=== PATIENT | male | born 1965 | race Caucasian/White ===

== ENCOUNTER 2023-12-20 10:31 | Outpatient (AMB) | payer OTHER, SELFPAY ==
--- NOTE | 2023-12-20 11:04 | MHC.OFFWIV ---
Intake Vital Signs 12/20/23 11:07 Height 6 ft 2 in Weight 505 lb BMI 64.8 BP 128/84 Blood Pressure Location Rt brachial Position Sitting Pulse 90 Pulse Source Pulse Oximeter Temp 98.3 F Temp Source Oral Pulse Oximetry (%) 96 Intake Visit Reasons: [employer] WORK[employer] blood in the urine Intake Note: PAtient here for urine in blood that started last night. Patient Tobacco Use Status: Never used Tobacco Allergies No Known Allergies Allergy (Verified 12/20/23 12:12) Do you need a note to return to daycare/school/sports/work: No HPI HPI Comments History of Present Illness Details This is a 58-year-old male with no stated past medical history and surgical history of hernia repair and appendectomy presenting for evaluation of bright red blood that he has had in his stool since yesterday. Patient states that this has never occurred before and he has no abdominal or rectal pain. Patient also denies having any fevers, chills, dysuria or hematuria. Patient is not aware of who his primary care physician is and is unaware of his most recent routine blood work. [facility] Social History Patient Tobacco Use Status: Never used Tobacco Review of Systems Const All systems reviewed & are unremarkable except as noted in HPI and below Eyes Reports no additional complaints ENT Reports no additional complaints Card Reports no additional complaints Resp Reports no additional complaints GI Denies abdominal pain, Reports hematochezia, Denies constipation and Denies GI cramping Reports no additional complaints, Denies hematuria and Denies dysuria Musc Reports no additional complaints Skin/Breast Reports system reviewed and no additional complaints, except as documented Neuro Reports no additional complaints Psych Reports no additional complaints Endo Reports no additional complaints Aller/Immun Reports no additional complaints Physical Exam Vital Signs: Last Vital Signs Pulse 90 12/20/23 11:07 BP 128/84 12/20/23 11:07 Pulse Ox 96 12/20/23 11:07 BMI result Body Mass Index 64.8 Const Other: Patient is morbidly obese and pale in appearance. General: no acute distress, alert, awake and Physically active; No acute distress Nutritional Appearance: obese morbidly obese Orientation/consciousness: oriented to person Limitations: other limitations (presents with cognitive delays; not able to ascertain chronicity) Cardio Rate: regular rate Rhythm: regular rhythm GI Other: obese abdomen, non.tender to examination, decreased bowel sounds Rectal Exam - Male: Yes deferred (Hemoccult testing is not available in the Walk.In clinic) Neuro General: oriented to person Assessment & Plan Assessment & Plan (1) Bloody stool: Comment: Patient's sister, Connie is consulted and will bring the patient to the Emergency Room for ongoing evaluation and care. Code(s): K92.1 - Melena Plan: Patient to be transported by his sister to [facility] ED. Coding Level of Care Code New Pt Level 3 (04883) Diagnoses Bloody stool K92.1 Time Spent (min) 20
[2023-12-20 11:07] VITALS: BP 128/84; PULSE 90; TEMP 36.8; O2SAT 96; BMI 64.8
== END 2023-12-20 11:39 | disposition home or self-care (01) ==
PROVIDERS: Visit Provider Physician Assistant
DX: K92.1 Melena (principal)

== ENCOUNTER → 2023-12-20 10:31 | Outpatient (BNVA) | payer SELFPAY | DX: R31.9 Hematuria, unspecified (principal) ==

== ENCOUNTER 2023-12-20 11:53 | Inpatient (IN) | payer OTHER, SELFPAY ==
--- NOTE | ~2023-12-20 | US_ITS ---
EXAMINATION: US ABDOMEN COMPLETE CLINICAL INFORMATION: Elevated bilirubin. COMPARISON: X-ray abdomen KUB 12/20/2023. TECHNIQUE: Real-time imaging of the abdominal viscera. Technically limited study secondary to body habitus and inability to roll in decubitus positioning. FINDINGS: PANCREAS: Normal. ABDOMINAL AORTA: Visualized proximal portions normal. INFERIOR VENA CAVA: Visualized proximal portions are normal. LIVER: Normal. The liver is normal in size. The liver contour is normal. Parenchymal echogenicity is normal. No focal hepatic lesion. There is no intrahepatic biliary duct dilatation seen. GALLBLADDER: Not seen likely surgically absent. COMMON BILE DUCT: Normal in caliber measuring 0.4 cm in diameter. RIGHT KIDNEY: Normal. No hydronephrosis. No renal calculi or focal parenchymal lesions. The kidney measures 12.2 cm in maximum dimension. LEFT KIDNEY: Lower pole cyst measuring 8.5 cm. No hydronephrosis or renal calculi. The kidney measures 12.4 cm in maximum dimension. SPLEEN: Normal. The spleen measures 15.0 cm in maximum dimension. FREE FLUID: None. US/US abdomen complete IMPRESSION: 1. Left renal cyst. 2. Gallbladder not visualized likely surgically absent. Electronically signed by: Carroll King MD 12/21/2023 05:48 PM EDT
--- NOTE | ~2023-12-20 | XR_ITS ---
EXAMINATION: XR ABDOMEN KUB CLINICAL INDICATION: Constipation COMPARISON: None available. TECHNIQUE: AP view of the abdomen. FINDINGS: The bowel gas pattern is normal with no evidence of ileus or obstruction. No unusual soft tissue calcifications are noted. The bones are unremarkable. Mild stool burden. XR/XR KUB IMPRESSION: Mild stool burden. Electronically signed by: Peg Bhakta MD 12/20/2023 07:27 PM EDT
--- NOTE | 2023-12-20 12:05 | ED_ITS ---
HPI - Male Genitourinary General Chief complaint: GI Bleed Stated complaint: blood in urine Time Seen by Provider: 12/20/23 14:57 Source: patient, family (sister), RN notes reviewed and old records reviewed Mode of arrival: ambulatory Limitations: no limitations History of Present Illness ED Provider: Ashley PETERSEN Narrative: 58-year-old male who denies past medical history presents for evaluation of bright red rectal bleeding. Patient admits that he has not seen a doctor in many years. He states that he has had intermittent rectal bleeding that is bright red for the last month. The symptoms seemed to worsen yesterday therefore the patient presents today. He reports that he does not feel constipated and has about 1 bowel movement per day He denies any pain including abdominal pain rectal pain. He is not on any blood thinners. He thinks he may have had blood in his urine as well He takes no medications whatsoever He denies any shortness of breath Patient reports that he occasionally does feel lightheaded Related Data Home Medications ?Medication ?Instructions ?Recorded ?Confirmed No Known Home Meds 12/20/23 12/20/23 Allergies Allergy/AdvReac Type Severity Reaction Status Date / Time No Known Allergies Allergy Verified 12/20/23 12:12 Review of Systems 2 Constitutional: Constitutional: Denies body ache(s), Denies chills, Denies fever(s) and Denies headache(s) Eyes: Eyes: Denies blurry vision ENT: Denies headache(s) Cardiovascular: Cardiovascular: Denies chest pain and Denies dyspnea Respiratory: Respiratory: Denies cough and Denies dyspnea Gastrointestinal: Gastrointestinal: Denies abdominal pain and Reports hematochezia Musculoskeletal: Musculoskeletal: Denies back pain Integumentary/Breasts: Skin/Breast: Denies rash Neurologic: Denies headache(s) [facility] Past Medical History Medical History (Updated 12/20/23 @ 17:19 by Willard Ramirez) Morbid obesity Surgical History (Updated 12/20/23 @ 15:58 by Grace Patel RN) S/P hernia surgery S/P appendectomy Social History Social History Patient Tobacco Use Status: Never used Tobacco Smoked in Last 30 Days: No Use of substances other than those prescribed or required for medical reasons: No Advance Directives: No Advance Directives Information Provided: No Do you have a plan to hurt others: No Plan Physical Exam 2 Vital Signs: Vital Signs: Last Vital Signs Temp 98.1 F 12/20/23 15:28 Pulse 81 12/20/23 15:28 Resp 16 12/20/23 15:28 BP 143/75 H 12/20/23 15:28 Pulse Ox 95 12/20/23 15:28 O2 Del Method Room Air 12/20/23 15:28 BMI result Body Mass Index 65.1 Const: General: comfortable, no acute distress, alert and awake Nutritional Appearance: well nourished Orientation/consciousness: patient oriented x3 HEENT: Head: Yes normocephalic and Yes atraumatic Eyes: Eyelids: Yes eyelids normal Conjunctivae: conjunctivae normal S clerae: sclerae normal Corneas: corneas normal Pupils: Equal, round and reactive pupils present EOM: EOMs intact bilaterally Neck: Neck: Yes full ROM Resp: Effort & Inspection: normal respiratory effort, able to speak in complete sentences and not labored Cardio: Rate: regular rate Rhythm: regular rhythm GI: Inspection: No distended Palpation (GI): Soft to palpation, not firm, nontender, no guarding and not rigid Rectal Exam - Male: Yes visual inspection normal, Yes normal sphincter tone, Yes heme positive stool, No External hemorrhoid(s) present, No Internal hemorrhoid(s) present and Yes other (Stool is light brown in color, but guaiac-positive) Skin: Other: The patient has significant lichenification changes to the bilateral lower extremities below the knee General skin exam: elasticity normal Neuro: General: patient oriented x3 Cranial nerves: Yes Equal, round and reactive pupils present and Yes Bilaterally intact EOM present Cognition (Neuro): normal cognition Course Course Course Narrative: This is a Rapid Medical Exam performed in triage by Mye Stearns PA-C. Full HPI, ROS and PE to be performed by primary ED provider. 58 yo M w/no sig PMHx presenting to the ED c/o brbpr x 1 mos worsening over the past week. Also ?hematuria. Denies AC use. Also reports feeling lightheaded at present. Denies abdominal pain, rectal pain, dysuria, fever, chills PE: Pale, ambulating w/ slow gait Plan: EKG, labs, UA, occult stool, type and screen Reevaluation(s) Reevaluation #1: Discussed with GI, Dr. Story who recommends admission as repeat hemoglobin is 1.1 points lower less than 4 hours and he has not yet received any fluids to dilute his blood. However, we will treat his elevated BUN and creatinine with IV fluids, 1 L of normal saline and will discuss with the hospitalist for admission. Time: 17:16 Medical Decision Making Medical Decision Making [facility] Narrative: 58-year-old male who denies any known medical history but appears to have noncompliance with follow-up. He is morbidly obese with significant lichenification to lower extremities. His vital signs are stable. He is guaiac positive from below. He is passing gas and having bowel movements as recently as last night. The patient has no abdominal pain or tenderness, we will discuss with the GI Differential Diagnosis Differential Diagnoses: The differential diagnosis associated with the presentation includes Internal hemorrhoids Constipation Anemia Diverticular bleed Admission/Observation Consideration of admission/observation: Escalation of care including admission/observation considered Consult Healthcare Provider Management of the patient was discussed with: [employer] Developer (GENO, Dr Story) Lab Data [facility] Lab Attestation statement: I reviewed the patient's lab results. Patient has no leukocytosis, initial hemoglobin and hematocrit 11.7 and 36.3 respectively, this is a normocytic anemia. Electrolytes are within normal limits, the patient has an elevated BUN to 27 with an elevated creatinine of 1.57, unclear baseline, glucose is 125 12/20/23 16:05 12/20/23 12:24 Labs: Lab Results 12/20/23 12/20/23 12/20/23 Range/Units 12:24 15:27 16:05 WBC 5.6 (4.8-10.8) X10*3/uL RBC 4.52 L (4.60-5.80) X10*6/uL Hgb 11.7 L 10.6 L (14.0-18.0) g/dl Hct 36.3 L 32.5 L (42.0-52.0) % MCV 80.3 (80.0-98.0) fL MCH 25.9 L (27.0-33.0) pg MCHC 32.2 (31.0-36.0) g/dl RDW 15.7 (11.0-16.0) % Plt Count 178 (160-400) X10*3/uL MPV 9.4 (9.4-12.4) fL Immature Gran % (Auto) 0.5 H (0.0-0.4) % Neut % (Auto) 78.7 H (45-73) % Lymph % (Auto) 12.7 L (20-40) % [place] % (Auto) 5.4 (2-11) % Eos % (Auto) 2.2 (0-4) % Baso % (Auto) 0.5 (0-2) % Lymph # (Auto) 0.7 L (1.2-4.9) X10*3/uL [place] # (Auto) 0.3 (0.1-1.2) X10*3/uL Eos # (Auto) 0.1 (0.0-0.4) X10*3/uL Baso # (Auto) 0.0 (0.0-0.2) X10*3/uL Abs Immat Gran (auto) 0.03 (0.00-0.03) X10*3/uL Absolute Neuts (auto) 4.4 (2.0-8.3) x10*3/uL Absolute Nucleated RBC 0.000 (0.0-0.012) X10*3/uL Nucleated RBC % (auto) 0.0 (0.0-0.2) /100WBC PT 13.0 H (10.9-12.4) SEC INR 1.1 (0.9-1.1) Sodium 143 (135-145) mmol/L Potassium 4.3 (3.3-5.1) mmol/L Chloride 106 (96-108) mmol/L Carbon Dioxide 28 (22-29) mmol/L Anion Gap 13 (12-20) BUN 27 H (9-16) mg/dL Creatinine 1.57 H (0.5-1.4) mg/dL Estim Creat Clear Calc 102.5 Estimated GFR 46 Random Glucose 125 H (60-115) mg/dL Calcium 9.5 (8.4-10.2) mg/dL Magnesium 1.7 (1.6-2.6) mg/dL Total Bilirubin 2.1 H (0.0-1.0) mg/dL Direct Bilirubin 0.7 H (0.0-0.5) mg/dL AST 14 (5-37) U/L ALT 13 (0-40) U/L Alkaline Phosphatase 97 (39-117) U/L Troponin I High Sens 2.9 (<3.5-35.0) ng/L Total Protein 7.7 (6.5-8.0) g/dL Albumin 3.8 (3.5-5.0) g/dL Lipase 16 (8-78) U/L Stool Occult Blood POSITIVE (NEGATIVE) Influenza Type A (PCR) NEGATIVE (Negative) Influenza Type B (PCR) NEGATIVE (Negative) RSV RNA Qual (PCR) NEGATIVE (Negative) SARS-CoV-2 RNA (RT-PCR) NEGATIVE (Negative) Blood Type A Positive Antibody Screen NEGATIVE Discharge Plan Discharge Clinical Impression: Bloody stool Patient Disposition: Admitted As Inpatient Prescriptions: No Action No Known Home Meds Print Language: Chinese
[2023-12-20 12:07] VITALS: BP 155/99; PULSE 93; RESP 20; TEMP 35.8; O2SAT 95; BMI 65.1
--- NOTE | 2023-12-20 12:09 | ECG_ITS ---
Test Reason : rectal bleeding Blood Pressure : / mmHG Vent. Rate : 074 BPM Atrial Rate : 000 BPM P-R Int : 000 ms QRS Dur : 106 ms QT Int : 416 ms P-R-T Axes : 000 031 030 degrees QTc Int : 461 ms Atrial fibrillation with a competing junctional pacemaker Abnormal ECG No previous ECGs available Referred By: Mey Stearns Electronically Signed By:THO LOREDO
[2023-12-20 12:31] LABS: MANUAL DIFF FLAG NO
[2023-12-20 12:36] LABS: Basophils Percent Auto 0.5 % (0-2); Eosinophils Absolute Auto 0.1 X10*3/uL (0.0-0.4); Eosinophils Percent Auto 2.2 % (0-4); Hematocrit 36.3 % (42.0-52.0); Hemoglobin 11.7 g/dl (14.0-18.0); Imm Gran Abs Auto 0.03 X10*3/uL (0.00-0.03); Imm Gran Pct Auto 0.5 % (0.0-0.4); Lymphocytes Absolute Auto 0.7 X10*3/uL (1.2-4.9); Lymphocytes Percent Auto 12.7 % (20-40); Mean Corpuscular HGB Conc 32.2 g/dl (31.0-36.0); Mean Corpuscular Hemoglobin 25.9 pg (27.0-33.0); Mean Corpuscular Volume 80.3 fL (80.0-98.0); Mean Platelet Volume 9.4 fL (9.4-12.4); Monocytes Absolute Auto 0.3 X10*3/uL (0.1-1.2); Monocytes Percent Auto 5.4 % (2-11); Neutrophils Absolute Auto 4.4 x10*3/uL (2.0-8.3); Neutrophils Percent Auto 78.7 % (45-73); Platelet Count 178 X10*3/uL (160-400); Red Blood Count 4.52 X10*6/uL (4.60-5.80); Red Cell Distribution Width 15.7 % (11.0-16.0); White Blood Count 5.6 X10*3/uL (4.8-10.8)
[2023-12-20 12:48] LABS: Alanine Aminotransferase 13 U/L (0-40); Albumin Level 3.8 g/dL (3.5-5.0); Alkaline Phosphatase 97 U/L (39-117); Anion Gap 13 (12-20); Aspartate Amino Transferase 14 U/L (5-37); Bilirubin Direct 0.7 mg/dL (0.0-0.5); Bilirubin Total 2.1 mg/dL (0.0-1.0); Blood Urea Nitrogen 27 mg/dL (9-16); Calcium 9.5 mg/dL (8.4-10.2); Carbon Dioxide 28 mmol/L (22-29); Chloride 106 mmol/L (96-108); Creatinine Clr Calc Pharmacy 102.5; Estimated Glomerular Filt Rate 46; Glucose Random 125 mg/dL (60-115); INTERNATIONAL NORM RATIO 1.1 (0.9-1.1); Lipase 16 U/L (8-78); Magnesium 1.7 mg/dL (1.6-2.6); Potassium 4.3 mmol/L (3.3-5.1); Sodium 143 mmol/L (135-145); Total Protein 7.7 g/dL (6.5-8.0)
[2023-12-20 12:56] LABS: Troponin-I High Sensitivity 2.9 ng/L (<3.5-35.0)
[2023-12-20 13:22] LABS: Influenza A PCR NEGATIVE (Negative); Influenza B PCR NEGATIVE (Negative); Resp Syncy Virus RNA Qual PCR NEGATIVE (Negative); SARS COV2 PCR INHOUSE NEGATIVE (Negative)
[2023-12-20 15:28] VITALS: BP 143/75; PULSE 81; RESP 16; TEMP 36.7; O2SAT 95
[2023-12-20 15:36] LABS: OBS Int Ctl Valid YES; OBS1 POSITIVE (NEGATIVE)
--- NOTE | 2023-12-20 16:06 | PC.NURSE ---
pt a&ox3, vss, pt denies pain/discomfort, iv inserted, labs drawn, call walton within reach, will continue to monitor
[2023-12-20 16:11] LABS: Hematocrit 32.5 % (42.0-52.0); Hemoglobin 10.6 g/dl (14.0-18.0)
--- NOTE | 2023-12-20 17:23 | PHA.MEDREC ---
Pharmacy Consult ? Medication Reconciliation Pharmacy has completed the medication reconciliation.
--- NOTE | 2023-12-20 17:32 | P.HPHOSP_ITS ---
History of Present Illness Date of Service: 12/20/23 Attending physician on admission: [facility] Chief Complaint: Bloody stool Pt is a 58-year-old male with PMH significant for appendectomy and hernia repair, not on home medication and does not regularly follow with PCP?who presents to the ED from urgent care for evaluation of bright red blood per rectum. Patient reports symptoms started approximately 3 months ago when he began noticing intermittent bright red blood after bowel movements. Frequency and duration of bleeding has been increasing, until yesterday he was ?dumping blood? with clots in the toilet. After prompting from his family patient initially presented to a walk-in clinic where he was then redirected to the ED for further evaluation. Patient otherwise denies any acute medical concerns. No lightheadedness or dizziness. Denies diarrhea. No abdominal pain. Denies fever, chills, nausea, vomiting. No increased fatigue. Denies chest pain/pressure, palpitations. No shortness a breath or difficulty breathing. Of note, patient is a rather poor historian without a clear sense of his PMH. Has not followed with a PCP for 30+ years. Reports previously on Coumadin 30 years ago but unsure of indication or why he stopped taking the medication. In the ED pt was hypothermic as low as 96.4, elevated heart rate of 93, and hypertensive at 155/99. Labs were significant for stool positive for occult blood, initial H&H of 11.7/36.3 with repeat 4 hours later at 10.6/32.5, BUN 27, creatinine 1.57, and bilirubin 2.1. No significant electrolyte abnormalities. No leukocytosis. Initial troponin 2.9. Tested negative for flu, RSV, and COVID. KUB official read pending. EKG demonstrated AFib without evidence of significant ST elevations or depressions. Pt was treated with 1L IVF. Pt will be admitted to the hospital for treatment and further evaluation of hematochezia concerning for acute lower GI bleed. Review of Systems 2 Review of Systems: Worsening bright red blood per rectum Patient otherwise denies any acute medical complaints No lightheadedness or dizziness Denies abdominal pain No nausea, vomiting, diarrhea No chest pain/pressure or palpitations PMFSH Medical History (Updated 12/21/23 @ 11:50 by Jerry Guzman MD) Morbid obesity Family History (Updated 12/21/23 @ 11:48 by Jerry Guzman MD) Mother No problems noted. Father No problems noted. Surgical History S/P hernia surgery S/P appendectomy Social History Household Members: Other Household Members Other:: Mother Housing: House Do you presently have visiting nurse or other home services: No Patient Tobacco Use Status: Never used Tobacco Smoked in Last 30 Days: No Use of substances other than those prescribed or required for medical reasons: No Currently Displaying Signs/Symptoms of Drug Intoxication Withdrawal: No Have you been hit, kicked, punched, or otherwise hurt by someone within the past year? If so, by whom?: No Do you feel safe in your current relationship?: No Current Relationship Is there a partner from a previous relationship who is making you feel unsafe now?: No Are you made to feel afraid or neglected: No Advance Directives: No Advance Directives Information Provided: No Do you have a plan to hurt others: No Plan Recently lost weight without trying: Unsure Eating poorly because of decreased appetite: No service: No Meds Allergies Allergy/AdvReac Type Severity Reaction Status Date / Time No Known Allergies Allergy Verified 12/20/23 12:12 Active Medications: Current Medications Sodium Chloride (Ns) 1,000 mls @ 999 mls/hr IV .Q1H1M MANUEL Stop: 12/20/23 18:15 Home Medications ?Medication ?Instructions ?Recorded ?Confirmed ?Last Taken ?Type No Known Home Meds 12/20/23 12/20/23 Unknown History Physical Exam 2 Vital Signs and Narrative: Vital Signs: Last Vital Signs Temp 98.1 F 12/20/23 15:28 Pulse 81 12/20/23 15:28 Resp 16 12/20/23 15:28 BP 143/75 H 12/20/23 15:28 Pulse Ox 95 12/20/23 15:28 O2 Del Method Room Air 12/20/23 15:28 BMI result Body Mass Index 65.1 General: AOx3, no acute distress Resp: CTA bilaterally CVS: Irregularly irregular rhythm GI: +BS, NT, no distention, obese Skin: Warm, dry Neuro: Cranial nerves II-XII grossly intact bilaterally. Motor grossly intact bilaterally Extremities: Evidence of significant venous stasis dermatitis with lichenification and scaling. No indication of cellulitis. As pictured below Psych: Appropriate affect Results Labs 12/22/23 05:34 12/22/23 05:34 Labs: Laboratory Results - last 24 hr 12/20/23 12/20/23 12:24 15:27 MCV 80.3 MCH 25.9 L MCHC 32.2 RDW 15.7 Plt Count 178 MPV 9.4 Immature Gran % (Auto) 0.5 H Neut % (Auto) 78.7 H Lymph % (Auto) 12.7 L [place] % (Auto) 5.4 Eos % (Auto) 2.2 Baso % (Auto) 0.5 Lymph # (Auto) 0.7 L [place] # (Auto) 0.3 Eos # (Auto) 0.1 Baso # (Auto) 0.0 Abs Immat Gran (auto) 0.03 Absolute Neuts (auto) 4.4 Absolute Nucleated RBC 0.000 Nucleated RBC % (auto) 0.0 PT 13.0 H INR 1.1 Anion Gap 13 Estim Creat Clear Calc 102.5 Estimated GFR 46 Random Glucose 125 H Calcium 9.5 Magnesium 1.7 Total Bilirubin 2.1 H Direct Bilirubin 0.7 H AST 14 ALT 13 Alkaline Phosphatase 97 Troponin I High Sens 2.9 Total Protein 7.7 Albumin 3.8 Lipase 16 Stool Occult Blood POSITIVE Influenza Type A (PCR) NEGATIVE Influenza Type B (PCR) NEGATIVE RSV RNA Qual (PCR) NEGATIVE SARS-CoV-2 RNA (RT-PCR) NEGATIVE Blood Type A Positive Antibody Screen NEGATIVE Assessment and Plan (1) Lower GI bleed: Status: Acute Plan Pt is a 58-year-old male with PMH significant for appendectomy and hernia repair, not on home medication and does not regularly follow with PCP?who presents to the ED from urgent care for evaluation of bright red blood per rectum. Pt will be admitted to the hospital for treatment and further evaluation of hematochezia concerning for acute lower GI bleed. Hematochezia Patient reports intermittent BRBPR x3 months, worsening since yesterday Stool positive for occult blood, H&H 11.7/36.3 with repeat dropping to 10.6/32.5 Concernig for acute LGIB Patient otherwise asymptomatic without N/V/D or abdominal pain, no lightheadedness/dizziness/fatigue GI consult NPO past midnight for possible colonoscopy Follow CBC Atrial fibrillation EKG showed a fibrillation with competing junctional pacemaker Patient asymptomatic: Denies chest pain/pressure or palpitations Pt not on home meds, denies previous cardiac hx Cardiology consult Continuous cardiac monitoring Elevated creatinine Creatinine 1.57 at time of presentation Baseline unknown: ?CKD vs QUENTIN Patient received 1L IVF in the ED Follow creatinine Chronic venous stasis dermatitis Patient with significant dermal changes and lichenification Ammonium lactate lotion b.i.d. Obesity class 3 Encourage weight loss Full Code Attending:?Dr. Liu DVT Prophylaxis: Pneumoatic compression due to concern for LGIB Pt will require a hospitalization of at least two nights for treatment of?hematochezia concerning for lower GI bleed that will require specialist consultation with GI, likely colonoscopy in the morning, and close H&H monitoring. Quality Stroke Does the patient have a stroke diagnosis?: No VTE Prior VTE?: No VTE Risk Level:: Medical - moderate - high VTE Device Contraindication: N/A - Device Ordered VTE Drug Contraindication: Treatment Not Indicated
[2023-12-20] MEDS: 0.9 % Sodium Chloride 1,000 ML 999 ML IV (17:41)
[2023-12-20 18:04] LABS: Appearance Urine Clear; Color Urine Yellow; Glucose Urine UA Negative (Negative); Leukocyte Esterase Urine Moderate (2+) (Negative); Nitrite Urine Negative (Negative); PH 5.5 (5.0-9.0); UMIC TRIGGER UACC YES; Urine Blood Moderate (2+) (Negative); Urine Ketones Negative (Negative); Urine Protein Trace mg/dL (Neg-Trace)
[2023-12-20 18:07] LABS: Bacteria Urine Trace (None Seen); Hyaline Casts Urine 0-2 /LPF (0-2); Squamous Epithelial Cell Urine 0-2 /HPF (0-2); UACC Culture Trigger YES; WBC Urine 21-50 /HPF (0-5)
--- NOTE | 2023-12-20 20:22 | PC.NURSE ---
Pt and family asking about food. Pt requesting to eat Per hospitalist clear liquid diet until 0000 then NPO Pt given juice and water Plan of care ongoing.
--- NOTE | 2023-12-20 21:18 | PC.NURSE ---
NS completed on prior shift. This RN entered room and NS finished. Plan of care ongoing.
[2023-12-21] VITALS (7 sets, daily range): BP systolic 128–160; BP diastolic 74–86; PULSE 61–80; RESP 12–20; TEMP 36.1–36.6; O2SAT 93–99
[2023-12-21 07:05] LABS: Hematocrit 32.2 % (42.0-52.0); Hemoglobin 10.2 g/dl (14.0-18.0); Mean Corpuscular HGB Conc 31.7 g/dl (31.0-36.0); Mean Corpuscular Hemoglobin 25.4 pg (27.0-33.0); Mean Corpuscular Volume 80.3 fL (80.0-98.0); Mean Platelet Volume 9.7 fL (9.4-12.4); Platelet Count 145 X10*3/uL (160-400); Red Blood Count 4.01 X10*6/uL (4.60-5.80); Red Cell Distribution Width 15.7 % (11.0-16.0); White Blood Count 4.5 X10*3/uL (4.8-10.8)
[2023-12-21 07:15] LABS: Anion Gap 11 (12-20); Blood Urea Nitrogen 20 mg/dL (9-16); Calcium 8.9 mg/dL (8.4-10.2); Carbon Dioxide 28 mmol/L (22-29); Chloride 108 mmol/L (96-108); Creatinine Clr Calc Pharmacy 137.6; Estimated Glomerular Filt Rate > 60; Glucose Random 97 mg/dL (60-115); Iron 37 mcg/dL (45-160); Percent Iron Saturation 16 % (15-50); Potassium 3.5 mmol/L (3.3-5.1); Sodium 143 mmol/L (135-145); Total Iron Binding Capacity 225 mcg/dL (228-428); Unsaturated Iron Binding 188 ug/dL
[2023-12-21 07:30] LABS: Ferritin 83 ng/mL (20-250)
[2023-12-21 07:39] LABS: Folate 7.7 ng/mL (> or = 4.0); Vitamin B12 1169 pg/mL (200-900)
[2023-12-21 08:05] LABS: Lactate Dehydrogenase 158 U/L (118-273)
--- NOTE | 2023-12-21 09:25 | P.PNIM_ITS ---
Subjective Subjective Date of Service: 12/21/23 Interval History: no further bm Physical Exam 2 Vital Signs: Vital Signs: Last Vital Signs Temp 97.6 F 12/21/23 08:00 Pulse 63 12/21/23 08:00 Resp 20 12/21/23 08:00 BP 158/82 H 12/21/23 08:00 Pulse Ox 96 12/21/23 08:00 O2 Del Method Room Air 12/21/23 08:00 BMI result Body Mass Index 65.1 General: AO X 3, no acute distress, morbidly obese Resp: CTA bilateral, no accessory muscles used CVS: S1,S2,RRR GI: soft, non tender, non distended Neuro: motor grossly intact, alert Psych: appropriate affect, appropriate insight bilateral lymphedema with chronic skin changes Objective Data Active Medications Acetaminophen (Acetaminophen 325 Mg Tablet) 650 mg PO Q6H PRN PRN Reason: Pain, Mild (Pain Scale 1-3), fever or headache Benzonatate (Benzonatate 100 Mg Capsule) 100 mg PO TID PRN PRN Reason: Cough Calcium Carbonate (Calcium Carbonate 750 Mg Tab.Chew) 750 mg PO Q4H PRN PRN Reason: Heartburn Lactic Acid (Ammonium Lactate 12 % Lotion 226 Gm Bottle) 1 appl TOPICAL BID [facility]; Protocol Last Admin: 12/20/23 21:18 Dose: Not Given Documented By: WYATT Non-Admin Reason: Med Not Available Magnesium Hydroxide (Milk Of Magnesia 30 Ml Oral.Susp) 30 ml PO DAILY PRN PRN Reason: Constipation Melatonin (Melatonin 3 Mg Tablet) 6 mg PO BEDTIME PRN PRN Reason: Insomnia Ondansetron HCl (Ondansetron Hcl 4 Mg/2 Ml Vial) 4 mg IVPUSH Q8H PRN PRN Reason: Nausea and Vomiting Sodium Chloride (0.9 % Sodium Chloride Flush 3 Ml Syringe) 3 ml IVFLUSH QSHIFT [facility] Last Admin: 12/21/23 06:03 Dose: Not Given Documented By: BRISEYDA Non-Admin Reason: Patient Refused Labs 12/21/23 06:12 12/21/23 06:12 Labs: Laboratory Results - last 24 hr 12/20/23 12/20/23 12/20/23 12:24 15:27 17:50 MCV 80.3 MCH 25.9 L MCHC 32.2 RDW 15.7 Plt Count 178 MPV 9.4 Immature Gran % (Auto) 0.5 H Neut % (Auto) 78.7 H Lymph % (Auto) 12.7 L [place] % (Auto) 5.4 Eos % (Auto) 2.2 Baso % (Auto) 0.5 Lymph # (Auto) 0.7 L [place] # (Auto) 0.3 Eos # (Auto) 0.1 Baso # (Auto) 0.0 Abs Immat Gran (auto) 0.03 Absolute Neuts (auto) 4.4 Absolute Nucleated RBC 0.000 Nucleated RBC % (auto) 0.0 PT 13.0 H INR 1.1 Anion Gap 13 Estim Creat Clear Calc 102.5 Estimated GFR 46 Random Glucose 125 H Calcium 9.5 Magnesium 1.7 Iron TIBC % Saturation Unsat Iron Binding Ferritin Total Bilirubin 2.1 H Direct Bilirubin 0.7 H AST 14 ALT 13 Alkaline Phosphatase 97 Lactate Dehydrogenase Troponin I High Sens 2.9 Total Protein 7.7 Albumin 3.8 Lipase 16 Vitamin B12 Folate Urine Color Yellow Urine Appearance Clear Urine pH 5.5 Ur Specific [place] 1.020 Urine Protein Trace Urine Glucose (UA) Negative Urine Ketones Negative Urine Blood Moderate (2+) H Urine Nitrite Negative Ur Leukocyte Esterase Moderate (2+) H Urine RBC 11-20 H Urine WBC 21-50 H Ur Squamous Epith Cells 0-2 Urine Bacteria Trace Hyaline Casts 0-2 Stool Occult Blood POSITIVE Influenza Type A (PCR) NEGATIVE Influenza Type B (PCR) NEGATIVE RSV RNA Qual (PCR) NEGATIVE SARS-CoV-2 RNA (RT-PCR) NEGATIVE Blood Type A Positive Antibody Screen NEGATIVE 12/21/23 06:12 MCV 80.3 MCH 25.4 L MCHC 31.7 RDW 15.7 Plt Count 145 L MPV 9.7 Immature Gran % (Auto) Neut % (Auto) Lymph % (Auto) [place] % (Auto) Eos % (Auto) Baso % (Auto) Lymph # (Auto) [place] # (Auto) Eos # (Auto) Baso # (Auto) Abs Immat Gran (auto) Absolute Neuts (auto) Absolute Nucleated RBC 0.000 Nucleated RBC % (auto) 0.0 PT INR Anion Gap 11 L Estim Creat Clear Calc 137.6 Estimated GFR > 60 Random Glucose 97 Calcium 8.9 D Magnesium Iron 37 L TIBC 225 L % Saturation 16 Unsat Iron Binding 188 Ferritin 83 Total Bilirubin Direct Bilirubin AST ALT Alkaline Phosphatase Lactate Dehydrogenase 158 Troponin I High Sens Total Protein Albumin Lipase Vitamin B12 1169 H Folate 7.7 Urine Color Urine Appearance Urine pH Ur Specific [place] Urine Protein Urine Glucose (UA) Urine Ketones Urine Blood Urine Nitrite Ur Leukocyte Esterase Urine RBC Urine WBC Ur Squamous Epith Cells Urine Bacteria Hyaline Casts Stool Occult Blood Influenza Type A (PCR) Influenza Type B (PCR) RSV RNA Qual (PCR) SARS-CoV-2 RNA (RT-PCR) Blood Type Antibody Screen Assessment and Plan (1) Lower GI bleed: Status: Acute Plan 58M PMH morbid obesity does not follow with pcp, presented with brbpr Acute blood loss anemia Due to lower GI bleed, likely hemorrhoidal versus diverticular Monitor CBC, GI eval afib new diagnosis, rate controlled - 60s, 70s hold off on AC due to gi bleed cardio eval katelyn resolved with 1L IVF super morbid obesity complicated by chronic venous stasis weight loss recommended ammonium lactate, compression elevated bili suspect NAFLD check a1c, lipids, abd us elevated bp ?htn monitor for now dvt prophylaxis - mechancial due to gi bleed full code reason for continued hospitalization:working up gi bleed Quality Stroke Does the patient have a stroke diagnosis?: No VTE Prior VTE?: No VTE Risk Level:: Medical - moderate - high VTE Device Contraindication: N/A - Device Ordered VTE Drug Contraindication: Treatment Not Indicated
[2023-12-21] MEDS: 0.9 % Sodium Chloride Flush 3 ML SYRINGE IVFLUSH ×2 (09:51→23:47)
[2023-12-21] MEDS: Ammonium Lactate 12 % Lotion 226 GM BOTTLE 1 APPL TOPICAL ×2 (09:52→22:30)
--- NOTE | 2023-12-21 10:05 | PM.GICN ---
History of Present Illness Data of Consult Service Date: 12/21/23 Requesting physician: Mitul Liang Primary Care Provider: None Physician HPI Reason for consult: Lower GI/rectal bleeding 58 YM with hx of morbid obesity, appendectomy and hernia repair, not on home medication and does not regularly follow with PCP?seen at [facility] [place] ED on 12/20/23 for evaluation of bright red blood per rectum. Patient reports he noted intermittent rectal bleeding (Consisting of BRB after a BM) since the past 3 months. Frequency and duration of bleeding has been increasing, until yesterday he was ?dumping blood? with clots in the toilet. After prompting from his family patient initially presented to a walk-in clinic where he was then redirected to the ED for further evaluation. Patient denied heartburn, dysphagia, lightheadedness or dizziness, abd pain or diarrhea, fever, chills, nausea, vomiting or worsening fatigue. He denied chest pain/pressure, palpitations, shortness a breath or difficulty breathing. Patient has not followed with a PCP for 30+ years. Reports previously on Coumadin 30 years ago but unsure of indication or why he stopped taking the medication. Patient denies smoking or ETOH abuse. 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 Labs were significant for stool positive for occult blood, initial H&H of 11.7/36.3 with repeat 4 hours later at 10.6/32.5, BUN 27, creatinine 1.57, and bilirubin 2.1. No significant electrolyte abnormalities. No leukocytosis. Initial troponin 2.9. Tested negative for flu, RSV, and COVID. [facility] official read pending. EKG demonstrated AFib without evidence of significant ST elevations or depressions. Pt was treated with 1L IVF. and was admitted to the hospital for treatment and further evaluation of hematochezia concerning for acute lower GI bleed. Review of Systems Review of Systems: Yes all other systems are reviewed and are negative [facility] Past Medical History Medical History (Updated 12/28/23 @ 00:03 by Kim Foley) Atrial fibrillation by electrocardiogram Morbid obesity Family History Family History (Updated 12/21/23 @ 11:48 by Jerry Guzman MD) Mother No problems noted. Father No problems noted. Surgical History Surgical History (Updated 12/24/23 @ 06:54 by Zayra Ruiz RN) Hx of colonoscopy S/P hernia surgery S/P appendectomy Social History Social History Household Members: Other Household Members Other:: sister Housing: House Are you a primary respiratory care faculty to a significant other at home: No Do you presently have visiting nurse or other home services: No Patient Tobacco Use Status: Never used Tobacco service: No Meds Allergies Allergy/AdvReac Type Severity Reaction Status Date / Time No Known Allergies Allergy Verified 12/24/23 06:54 Active Medications: Current Medications Acetaminophen (Acetaminophen 325 Mg Tablet) 650 mg PO Q6H PRN PRN Reason: Pain, Mild (Pain Scale 1-3), fever or headache Benzonatate (Benzonatate 100 Mg Capsule) 100 mg PO TID PRN PRN Reason: Cough Calcium Carbonate (Calcium Carbonate 750 Mg Tab.Chew) 750 mg PO Q4H PRN PRN Reason: Heartburn Lactic Acid (Ammonium Lactate 12 % Lotion 226 Gm Bottle) 1 appl TOPICAL BID [facility]; Protocol Last Admin: 12/21/23 09:52 Dose: 1 appl Magnesium Hydroxide (Milk Of Magnesia 30 Ml Oral.Susp) 30 ml PO DAILY PRN PRN Reason: Constipation Melatonin (Melatonin 3 Mg Tablet) 6 mg PO BEDTIME PRN PRN Reason: Insomnia Ondansetron HCl (Ondansetron Hcl 4 Mg/2 Ml Vial) 4 mg IVPUSH Q8H PRN PRN Reason: Nausea and Vomiting Sodium Chloride (0.9 % Sodium Chloride Flush 3 Ml Syringe) 3 ml IVFLUSH QSHIFT [facility] Last Admin: 12/21/23 09:51 Dose: 3 ml Physical Exam Vital Signs: Vital Signs: Last Vital Signs Temp 97.6 F 12/21/23 08:00 Pulse 63 12/21/23 08:00 Resp 20 12/21/23 08:00 BP 158/82 H 12/21/23 08:00 Pulse Ox 96 12/21/23 08:00 O2 Del Method Room Air 12/21/23 08:00 BMI result Body Mass Index 65.1 Const: General: healthy appearing and no acute distress Nutritional Appearance: obese (Morbidly obese) Orientation/consciousness: patient oriented x3 HEENT: Head: Yes normal to inspection Ears: hearing grossly normal bilaterally Eyes: Sclerae: sclerae normal Pupils: Equal, round and reactive pupils present Neck: Neck: Yes normal visual inspection Chest: Chest palpation & inspection: normal inspection of the chest Resp: Effort & Inspection: normal respiratory effort Auscultation: clear to auscultation bilaterally Cardio: Palpation: normal PMI Rate: regular rate Rhythm: regular rhythm Heart sounds: S1 normal heart sound present, S2 normal heart sound present and no murmurs GI: Palpation (GI): Soft to palpation, nontender and No hepatosplenomegaly present Auscultation: normal bowel sounds Rectal Exam - Male: Yes deferred Skin: General skin exam: no rashes or lesions noted Neuro: General: patient oriented x3, gait normal and moves all extremities Cranial nerves: Yes Equal, round and reactive pupils present Extrem: General: Yes pedal edema (Bilateral lower extremity edema with changes of stasis dermatitis) and Yes venous stasis dermatitis Psych: Appearance: grossly normal Mental Status: mental status grossly normal Results Labs 12/25/23 06:46 12/25/23 06:46 Labs: Short CBC 12/20/23 12/20/23 12/21/23 Range/Units 12:24 16:05 06:12 WBC 5.6 4.5 L (4.8-10.8) X10*3/uL Hgb 11.7 L 10.6 L 10.2 L (14.0-18.0) g/dl Hct 36.3 L 32.5 L 32.2 L (42.0-52.0) % Plt Count 178 145 L (160-400) X10*3/uL BMP 12/20/23 12/21/23 12:24 06:12 Sodium 143 143 Potassium 4.3 3.5 Chloride 106 108 Carbon Dioxide 28 28 BUN 27 H 20 H Creatinine 1.57 H 1.17 Calcium 9.5 8.9 D Liver Function 12/20/23 Range/Units 12:24 Total Bilirubin 2.1 H (0.0-1.0) mg/dL Direct Bilirubin 0.7 H (0.0-0.5) mg/dL AST 14 (5-37) U/L ALT 13 (0-40) U/L Alkaline Phosphatase 97 (39-117) U/L Albumin 3.8 (3.5-5.0) g/dL Urine 12/20/23 Range/Units 17:50 Urine Color Yellow Urine Appearance Clear Urine pH 5.5 (5.0-9.0) Ur Specific [place] 1.020 (1.005-1.025) Urine Protein Trace (Neg-Trace) mg/dL Urine Glucose (UA) Negative (Negative) mg/dL Assessment and Plan (1) Lower GI bleed: Status: Resolved Plan 58 YM with hx of morbid obesity, appendectomy and hernia repair, not on home medication and does not regularly follow with PCP?admitted to [facility] [place] with LGI bleeding associated with a decrease in H & H. Source of bleeding can be from diverticulosis, large polyp or mass, hemorrhoids or colonic AVMs. In the ED pt was hypothermic as low as 96.4, elevated heart rate of 93, and hypertensive at 155/99. Labs were significant for stool positive for occult blood, initial H&H of 11.7/36.3 with repeat 4 hours later at 10.6/32.5, BUN 27, creatinine 1.57, and bilirubin 2.1. Initial troponin 2.9. EKG demonstrated AFib without evidence of significant ST elevations or depressions. Pt was seen by Cardiology for new onset AF and is scheduled for an Echo on 11/3023 RECOMMENDATIONS: 1. Follow CBC daily. 2. Further evaluation with colonoscopy was reviewed with the patient and will be scheduled on Saturday (after Echo and cardiac clearance on Saturday) Procedures Date of Service Date of Service: 01/03/24
--- NOTE | 2023-12-21 11:46 | P.CONCA_ITS ---
History of Present Illness History of Present Illness Date of Service: 12/21/23 Chief complaint: LGIB Narrative: This is a cardiology consultation regarding atrial fibrillation. Patient is morbidly obese. He has been admitted for evaluation of bright red blood per rectum. Apparently for the last few months he has had this problem. From a cardiac standpoint denies any complaints like shortness of breath or chest pains or palpitations. Denies any history of coronary artery disease or myocardial infarction or cardiomyopathy as well. He states within limits of his activity, he is okay. However, with his obesity unclear how much she actually does at baseline. Review of Systems 2 Review of Systems: Yes all other systems are reviewed and are negative Constitutional: Constitutional: Reports as per HPI and Reports no additional constitutional complaints Eyes: Eyes: Reports as per HPI and Denies no additional eye complaints ENT: Denies system reviewed and no additional complaints, except as documented and Reports as per HPI Cardiovascular: Cardiovascular: Reports as per HPI, Reports no additional cardiovascular complaints, Denies acrocyanosis, Denies cool extremities, Denies chest pain, Denies leg edema, Denies lightheadedness, Denies palpitations and Denies dyspnea Respiratory: Respiratory: Reports as per HPI, Denies no additional respiratory complaints and Denies dyspnea Gastrointestinal: Gastrointestinal: Reports as per HPI and Denies no additional gastrointestinal complaints Genitourinary: Genitourinary: Reports no additional male genitourinary complaints and Reports as per HPI Musculoskeletal: Musculoskeletal: Reports no additional musculoskeletal complaints and Reports as per HPI Integumentary/Breasts: Skin/Breast: Reports system reviewed and no additional complaints, except as docu Neurologic: Reports system reviewed and no additional complaints, except as documented and Reports as per HPI Psychiatric: Psychiatric: Reports no additional psychiatric complaints and Reports as per HPI Endocrine: Endocrine: Reports no additional endocrine complaints, Reports as per HPI and Denies palpitations Hematologic/Lymphatic: Hematologic/Lymphatic: Reports no additional hematologic/lymphatic complaints and Reports as per HPI Allergic/Immunologic: Allergic/Immunologic: Reports no additional allergic/immunologic complaints and Reports as per HPI [facility] Past Medical History Medical History (Updated 12/21/23 @ 11:50 by Jerry Guzman MD) Morbid obesity Family History Family History Mother No problems noted. Father No problems noted. Surgical History Surgical History S/P hernia surgery S/P appendectomy Social History Social History Household Members: Other Household Members Other:: Mother Housing: House Do you presently have visiting nurse or other home services: No Patient Tobacco Use Status: Never used Tobacco Smoked in Last 30 Days: No Use of substances other than those prescribed or required for medical reasons: No Currently Displaying Signs/Symptoms of Drug Intoxication Withdrawal: No Have you been hit, kicked, punched, or otherwise hurt by someone within the past year? If so, by whom?: No Do you feel safe in your current relationship?: No Current Relationship Is there a partner from a previous relationship who is making you feel unsafe now?: No Are you made to feel afraid or neglected: No Advance Directives: No Advance Directives Information Provided: No Do you have a plan to hurt others: No Plan Recently lost weight without trying: Unsure Eating poorly because of decreased appetite: No Meds Allergies Allergy/AdvReac Type Severity Reaction Status Date / Time No Known Allergies Allergy Verified 12/20/23 12:12 Active Medications: Current Medications Acetaminophen (Acetaminophen 325 Mg Tablet) 650 mg PO Q6H PRN PRN Reason: Pain, Mild (Pain Scale 1-3), fever or headache Benzonatate (Benzonatate 100 Mg Capsule) 100 mg PO TID PRN PRN Reason: Cough Calcium Carbonate (Calcium Carbonate 750 Mg Tab.Chew) 750 mg PO Q4H PRN PRN Reason: Heartburn Lactic Acid (Ammonium Lactate 12 % Lotion 226 Gm Bottle) 1 appl TOPICAL BID [facility]; Protocol Last Admin: 12/21/23 09:52 Dose: 1 appl Magnesium Hydroxide (Milk Of Magnesia 30 Ml Oral.Susp) 30 ml PO DAILY PRN PRN Reason: Constipation Melatonin (Melatonin 3 Mg Tablet) 6 mg PO BEDTIME PRN PRN Reason: Insomnia Ondansetron HCl (Ondansetron Hcl 4 Mg/2 Ml Vial) 4 mg IVPUSH Q8H PRN PRN Reason: Nausea and Vomiting Sodium Chloride (0.9 % Sodium Chloride Flush 3 Ml Syringe) 3 ml IVFLUSH QSHIFT [facility] Last Admin: 12/21/23 09:51 Dose: 3 ml Home Medications ?Medication ?Instructions ?Recorded ?Confirmed ?Last Taken ?Type No Known Home Meds 12/20/23 12/20/23 Unknown History Physical Exam 2 Vital Signs: Vital Signs: Last Vital Signs Temp 97.6 F 12/21/23 08:00 Pulse 63 12/21/23 08:00 Resp 20 12/21/23 08:00 BP 158/82 H 12/21/23 08:00 Pulse Ox 96 12/21/23 08:00 O2 Del Method Room Air 12/21/23 08:00 BMI result Body Mass Index 65.1 Const: General: comfortable and no acute distress O rientation/consciousness: patient oriented x3 HEENT: Other: Unremarkable Head: Yes normal to inspection Neck: Neck: Yes normal visual inspection Chest: Chest palpation & inspection: normal inspection of the chest Resp: Auscultation: clear to auscultation bilaterally Cardio: Palpation: normal PMI Heart sounds: S1 normal heart sound present, S2 normal heart sound present, no gallops, no murmurs and no rubs GI: Palpation (GI): Soft to palpation Back/Spine/Pelvis: Other: unremarkable Skin: General skin exam: no rashes or lesions noted Neuro: General: patient oriented x3 Extrem: Other: Chronic changes in bilateral lower extremities Psych: Mental Status: mental status grossly normal Objective Labs and Meds 12/21/23 06:12 12/21/23 06:12 Lab results: Laboratory Results - last 24 hr 12/20/23 12/20/23 12/20/23 12:24 15:27 16:05 WBC 5.6 RBC 4.52 L Hgb 11.7 L 10.6 L Hct 36.3 L 32.5 L MCV 80.3 MCH 25.9 L MCHC 32.2 RDW 15.7 Plt Count 178 MPV 9.4 Immature Gran % (Auto) 0.5 H Neut % (Auto) 78.7 H Lymph % (Auto) 12.7 L [place] % (Auto) 5.4 Eos % (Auto) 2.2 Baso % (Auto) 0.5 Lymph # (Auto) 0.7 L [place] # (Auto) 0.3 Eos # (Auto) 0.1 Baso # (Auto) 0.0 Abs Immat Gran (auto) 0.03 Absolute Neuts (auto) 4.4 Absolute Nucleated RBC 0.000 Nucleated RBC % (auto) 0.0 PT 13.0 H INR 1.1 Sodium 143 Potassium 4.3 Chloride 106 Carbon Dioxide 28 Anion Gap 13 BUN 27 H Creatinine 1.57 H Estim Creat Clear Calc 102.5 Estimated GFR 46 Random Glucose 125 H Calcium 9.5 Magnesium 1.7 Iron TIBC % Saturation Unsat Iron Binding Ferritin Total Bilirubin 2.1 H Direct Bilirubin 0.7 H AST 14 ALT 13 Alkaline Phosphatase 97 Lactate Dehydrogenase Troponin I High Sens 2.9 Total Protein 7.7 Albumin 3.8 Lipase 16 Vitamin B12 Folate Urine Color Urine Appearance Urine pH Ur Specific [place] Urine Protein Urine Glucose (UA) Urine Ketones Urine Blood Urine Nitrite Ur Leukocyte Esterase Urine RBC Urine WBC Ur Squamous Epith Cells Urine Bacteria Hyaline Casts Stool Occult Blood POSITIVE Influenza Type A (PCR) NEGATIVE Influenza Type B (PCR) NEGATIVE RSV RNA Qual (PCR) NEGATIVE SARS-CoV-2 RNA (RT-PCR) NEGATIVE Blood Type A Positive Antibody Screen NEGATIVE 12/20/23 12/21/23 17:50 06:12 WBC 4.5 L RBC 4.01 L Hgb 10.2 L Hct 32.2 L MCV 80.3 MCH 25.4 L MCHC 31.7 RDW 15.7 Plt Count 145 L MPV 9.7 Immature Gran % (Auto) Neut % (Auto) Lymph % (Auto) [place] % (Auto) Eos % (Auto) Baso % (Auto) Lymph # (Auto) [place] # (Auto) Eos # (Auto) Baso # (Auto) Abs Immat Gran (auto) Absolute Neuts (auto) Absolute Nucleated RBC 0.000 Nucleated RBC % (auto) 0.0 PT INR Sodium 143 Potassium 3.5 Chloride 108 Carbon Dioxide 28 Anion Gap 11 L BUN 20 H Creatinine 1.17 Estim Creat Clear Calc 137.6 Estimated GFR > 60 Random Glucose 97 Calcium 8.9 D Magnesium Iron 37 L TIBC 225 L % Saturation 16 Unsat Iron Binding 188 Ferritin 83 Total Bilirubin Direct Bilirubin AST ALT Alkaline Phosphatase Lactate Dehydrogenase 158 Troponin I High Sens Total Protein Albumin Lipase Vitamin B12 1169 H Folate 7.7 Urine Color Yellow Urine Appearance Clear Urine pH 5.5 Ur Specific [place] 1.020 Urine Protein Trace Urine Glucose (UA) Negative Urine Ketones Negative Urine Blood Moderate (2+) H Urine Nitrite Negative Ur Leukocyte Esterase Moderate (2+) H Urine RBC 11-20 H Urine WBC 21-50 H Ur Squamous Epith Cells 0-2 Urine Bacteria Trace Hyaline Casts 0-2 Stool Occult Blood Influenza Type A (PCR) Influenza Type B (PCR) RSV RNA Qual (PCR) SARS-CoV-2 RNA (RT-PCR) Blood Type Antibody Screen ECG Interpretation: EKG shows atrial fibrillation at a rate of 74/Min. Telemetry shows atrial fibrillation. Imaging Radiologist's impression: Impressions [facility] X-Ray 12/20/23 15:27 IMPRESSION: Mild stool burden. Electronically signed by: Peg Bhakta MD 12/20/2023 07:27 PM EDT Assessment and Plan (1) Atrial fibrillation by electrocardiogram: Status: Acute (2) Lower GI bleed: Status: Acute (3) Morbid obesity: Status: Acute Plan Morbid obesity at over 500 lb; lower GI bleeding; atrial fibrillation of unknown duration. Suspect he most likely has obstructive sleep apnea. Check echocardiogram for cardiac function. Rate spontaneously appears well controlled. Await GI evaluation before deciding on anticoagulation. Procedures Date of Service Date of Service: 12/21/23
[2023-12-22] VITALS: BP 180/79; PULSE 68; RESP 20; TEMP 36.1; O2SAT 99
[2023-12-22 03:41] VITALS: BP 153/71; PULSE 55; RESP 20; TEMP 36.1; O2SAT 97
[2023-12-22 06:56] LABS: Hematocrit 31.4 % (42.0-52.0); Hemoglobin 9.8 g/dl (14.0-18.0); Mean Corpuscular HGB Conc 31.2 g/dl (31.0-36.0); Mean Corpuscular Hemoglobin 25.3 pg (27.0-33.0); Mean Corpuscular Volume 81.1 fL (80.0-98.0); Mean Platelet Volume 9.9 fL (9.4-12.4); Platelet Count 157 X10*3/uL (160-400); Red Blood Count 3.87 X10*6/uL (4.60-5.80); Red Cell Distribution Width 15.7 % (11.0-16.0); White Blood Count 4.9 X10*3/uL (4.8-10.8)
[2023-12-22 06:58] LABS: Hematocrit 31.3 % (42.0-52.0); Hemoglobin 9.8 g/dl (14.0-18.0); Mean Corpuscular HGB Conc 31.3 g/dl (31.0-36.0); Mean Corpuscular Hemoglobin 25.5 pg (27.0-33.0); Mean Corpuscular Volume 81.3 fL (80.0-98.0); Platelet Count 152 X10*3/uL (160-400); Red Blood Count 3.85 X10*6/uL (4.60-5.80); Red Cell Distribution Width 15.8 % (11.0-16.0)
[2023-12-22 07:05] LABS: Alanine Aminotransferase 10 U/L (0-40); Albumin Level 3.2 g/dL (3.5-5.0); Alkaline Phosphatase 85 U/L (39-117); Anion Gap 11 (12-20); Aspartate Amino Transferase 12 U/L (5-37); Bilirubin Direct 0.5 mg/dL (0.0-0.5); Bilirubin Total 1.8 mg/dL (0.0-1.0); Blood Urea Nitrogen 21 mg/dL (9-16); Carbon Dioxide 27 mmol/L (22-29); Chloride 108 mmol/L (96-108); Cholesterol 122 mg/dL (<200); Estimated Glomerular Filt Rate > 60; Glucose Fasting 118 mg/dL (60-99); Glucose Random 118 mg/dL (60-115); HDL Cholesterol 35 mg/dL (>40); LDL Cholesterol Calculated 74 mg/dL (<100); Potassium 4.1 mmol/L (3.3-5.1); Sodium 142 mmol/L (135-145); Total Protein 6.5 g/dL (6.5-8.0); Triglycerides 69 mg/dL (<150)
[2023-12-22 07:26] LABS: Estimated Average Glucose 100 mg/dL; Hemoglobin A1C 80.3457 umol/L; Hemoglobin A1c % 5.1 % (<6.0); Total Hemoglobin (HGBA1C) 2525.8647 umol/L
[2023-12-22 08:00] VITALS: BP 166/86; PULSE 63; RESP 18; TEMP 36.4; O2SAT 98
[2023-12-22] MEDS: Ammonium Lactate 12 % Lotion 226 GM BOTTLE 1 APPL TOPICAL ×2 (08:43→20:31)
[2023-12-22] MEDS: 0.9 % Sodium Chloride Flush 3 ML SYRINGE IVFLUSH ×3 (08:43→20:31)
--- NOTE | 2023-12-22 10:13 | P.PNIM_ITS ---
Subjective Subjective Date of Service: 12/22/23 Interval History: no new blood Physical Exam 2 Vital Signs: Vital Signs: Last Vital Signs Temp 97.5 F 12/22/23 08:00 Pulse 63 12/22/23 08:00 Resp 18 12/22/23 08:00 BP 166/86 H 12/22/23 08:00 Pulse Ox 98 12/22/23 08:00 O2 Del Method Room Air 12/22/23 08:00 BMI result Body Mass Index 65.1 Const: General: comfortable and no acute distress O rientation/consciousness: patient oriented x3 HEENT: Other: Unremarkable Head: Yes normal to inspection Neck: Neck: Yes normal visual inspection Chest: Chest palpation & inspection: normal inspection of the chest Resp: Auscultation: clear to auscultation bilaterally Cardio: Palpation: normal PMI Heart sounds: S1 normal heart sound present, S2 normal heart sound present, no gallops, no murmurs and no rubs GI: Palpation (GI): Soft to palpation Back/Spine/Pelvis: Other: unremarkable Skin: General skin exam: no rashes or lesions noted Neuro: General: patient oriented x3 Extrem: Other: Chronic changes in bilateral lower extremities Psych: Mental Status: mental status grossly normal Objective Data Active Medications Acetaminophen (Acetaminophen 325 Mg Tablet) 650 mg PO Q6H PRN PRN Reason: Pain, Mild (Pain Scale 1-3), fever or headache Benzonatate (Benzonatate 100 Mg Capsule) 100 mg PO TID PRN PRN Reason: Cough Calcium Carbonate (Calcium Carbonate 750 Mg Tab.Chew) 750 mg PO Q4H PRN PRN Reason: Heartburn Lactic Acid (Ammonium Lactate 12 % Lotion 226 Gm Bottle) 1 appl TOPICAL BID [facility]; Protocol Last Admin: 12/22/23 08:43 Dose: 1 appl Documented By: GLENN Magnesium Hydroxide (Milk Of Magnesia 30 Ml Oral.Susp) 30 ml PO DAILY PRN PRN Reason: Constipation Melatonin (Melatonin 3 Mg Tablet) 6 mg PO BEDTIME PRN PRN Reason: Insomnia Ondansetron HCl (Ondansetron Hcl 4 Mg/2 Ml Vial) 4 mg IVPUSH Q8H PRN PRN Reason: Nausea and Vomiting Sodium Chloride (0.9 % Sodium Chloride Flush 3 Ml Syringe) [facility] Last Admin: 12/22/23 08:43 Dose: 3 ml Documented By: GLENN Labs 12/22/23 05:34 12/22/23 05:34 Labs: Laboratory Results - last 24 hr 12/22/23 12/22/23 12/22/23 05:34 05:34 05:34 MCV 81.3 81.1 MCH 25.5 L 25.3 L MCHC 31.3 RDW Plt Count MPV Absolute Nucleated RBC Nucleated RBC % (auto) Anion Gap Estim Creat Clear Calc Estimated GFR Random Glucose Fasting Glucose Estimat Average Glucose Hemoglobin A1c % Calcium Total Bilirubin Direct Bilirubin AST ALT Alkaline Phosphatase Total Protein Albumin Triglycerides Cholesterol LDL Cholesterol, Calc HDL Cholesterol 12/22/23 12/22/23 12/22/23 05:34 05:34 05:34 MCV MCH MCHC 31.2 RDW 15.8 15.7 Plt Count 152 L 157 L MPV 10.0 Absolute Nucleated RBC Nucleated RBC % (auto) Anion Gap Estim Creat Clear Calc Estimated GFR Random Glucose Fasting Glucose Estimat Average Glucose Hemoglobin A1c % Calcium Total Bilirubin Direct Bilirubin AST ALT Alkaline Phosphatase Total Protein Albumin Triglycerides Cholesterol LDL Cholesterol, Calc HDL Cholesterol 12/22/23 12/22/23 12/22/23 05:34 05:34 05:34 MCV MCH MCHC RDW Plt Count MPV 9.9 Absolute Nucleated RBC 0.000 0.000 Nucleated RBC % (auto) 0.0 0.0 Anion Gap 11 L Estim Creat Clear Calc 133.0 Estimated GFR > 60 Random Glucose 118 H Fasting Glucose 118 H Estimat Average Glucose 100 Hemoglobin A1c % 5.1 Calcium 9.0 Total Bilirubin 1.8 H Direct Bilirubin 0.5 AST 12 ALT 10 Alkaline Phosphatase 85 Total Protein 6.5 Albumin 3.2 L Triglycerides 69 Cholesterol 122 LDL Cholesterol, Calc 74 HDL Cholesterol 35 L Microbiology Microbiology Results: Microbiology 12/20/23 18:08 Urine Culture - Preliminary Urine clean catch - Clean Catch Midstream Culture in progress. Assessment and Plan (1) Lower GI bleed: Status: Acute Plan 58M PMH morbid obesity does not follow with pcp, presented with brbpr Acute blood loss anemia Due to lower GI bleed, likely hemorrhoidal versus diverticular Monitor CBC, colonoscopy 12/24/23 afib new diagnosis, rate controlled - 60s, 70s hold off on AC due to gi bleed cardio appreciated follow up echo katelyn resolved with 1L IVF super morbid obesity complicated by chronic venous stasis weight loss recommended ammonium lactate, compression elevated bili ?adilia, mostly indirect, abd us normal elevated bp likely has hypertension, will start amlodipine dvt prophylaxis - mechancial due to gi bleed full code reason for continued hospitalization:working up gi bleed Quality Stroke Does the patient have a stroke diagnosis?: No VTE Prior VTE?: No VTE Risk Level:: Medical - moderate - high VTE Device Contraindication: N/A - Device Ordered VTE Drug Contraindication: Treatment Not Indicated
--- NOTE | 2023-12-22 10:39 | MHC.CM.PN ---
PT REPORTS HE LIVES WITH HIS MOTHER HE HAS NO SERVICES AND NO DME PT SAYS HE THINKS HE HAS A HCP NAMING HIS SISTER, COPY REQUESTED PT DOES NOT HAVE A PCP, HE CANNOT REMEMBER WHO HE LAST SAW, BUT STATES IT WAS WELL OVER A YEAR AGO DCP: HOME, MOTHER WILL TRANSPORT
[2023-12-22 12:00] VITALS: BP 158/74; PULSE 63; RESP 16; TEMP 36; O2SAT 95
[2023-12-22 15:35] VITALS: BP 135/73; PULSE 59; RESP 16; TEMP 36.2; O2SAT 95
[2023-12-22 20:00] VITALS: BP 161/84; PULSE 67; RESP 16; TEMP 36; O2SAT 96
[2023-12-23] VITALS (7 sets, daily range): BP systolic 137–173; BP diastolic 68–91; PULSE 53–62; RESP 14–20; TEMP 36–37.1; O2SAT 95–100
--- NOTE | 2023-12-23 07:00 | CA_ITS ---
Transthoracic Echocardiogram Patient (Last, First, Middle): Jey Hicks P Gender: Male Date of : 1965 Age: 58 Procedure Date: 12/23/2023 Procedure Type: Transthoracic [place] [facility] [place] 187.96 cm Weight: 229.98 kg BSA: 3.23 m2 Heart Rate: bpm BP: 173 / 81 mmHg Section Leader Screen Printing: SB Referring MD: Ric Howe MD Symptoms: new afib Study Quality: Adequate w contrast ECG Rhythm: Atrial Fibrillation Conclusions: - Normal left ventricular size and systolic function. There is mildly increased left ventricular wall thickness. The visually estimated ejection fraction is between 60-65%. - Normal right ventricular cavity size and systolic function. - Significantly elevated right atrial pressure. Findings Procedure Information Contrast agent, definity, is being given per protocol without apparent complications. Left Ventricle Normal left ventricular size and systolic function. There is mildly increased left ventricular wall thickness. The visually estimated ejection fraction is between 60-65%. There is no evidence of regional wall motion abnormalities. Diastolic function is indeterminate on the basis of available data. Right Ventricle Normal right ventricular cavity size and systolic function. Atria The left atrium is likely dilated. The right atrium was not well visualized. Aortic Valve Normal aortic valve structure and function. There is no aortic valve stenosis. There is no aortic valve regurgitation. Mitral Valve The mitral valve appears normal. There is no mitral valve regurgitation. There is no mitral valve stenosis. Pulmonic Valve The pulmonic valve is normal. There is trace pulmonic valve regurgitation. Tricuspid Valve Normal tricuspid valve structure. There is no tricuspid valve regurgitation. Tricuspid regurgitation envelope is inadequate for calculation of right ventricular systolic pressure. Significantly elevated right atrial pressure. Great Vessels All visible segments of the aorta are normal in size. Venous The inferior vena cava is dilated and collapses less than 50% with inspiration. Pericardium/Pleural There is no evidence of pericardial effusion. Prior Study Comparison No prior study available for comparison. Measurements 2D Linear Measurements IVSd: 1.18 0.6-0.9/0.6-1.0 cm LVIDd: 5.72 3.9-5.3/4.2-5.9 cm LVIDd Index: 1.77 2.4-3.2/2.2-3.1 cm/m2 LVIDs: 3.47 2.0-3.6 cm LVPWd: 1.14 0.7-1.1 cm LA Diam: 4.80 2.7-3.8/3.0-4.0 cm LAIDs Index: 1.49 1.5-2.3 cm/m2 LV Mass: 345.87 67-162/88-224 g LV Mass Index: 107.08 43-95/49-115 g/m2 LVOT Diam: 2.10 3.0+(-)1.3 cm 2D Systolic Function EF 4C: 72.20 >55% EF 2C: 63.20 >55% EF BiP: 67.60 >55% Mitral Valve MV Pk E: 1.36 E'Lateral: 12.70 E/E' Lat: 10.70 Aortic Valve AoV Pk Emerson: 1.17 AoV Pk Grad: 5.00 SHANA: 2.95 LVOT LVOT Pk Emerson: 1.00 LVOT Mn Emerson: 0.72 LVOT VTI: 0.26 LVOT Pk Grad: 4.00 LVOT Mn Grad: 2.00 LVOT Diam: 2.10 LVOT Area: 3.46 Diastolic Function MV Pk E: 1.36 E' Laterial: 12.70 E/E' Lat: 10.70 Right Ventricle TAPSE (mm): 20.00 TVS' Emerson: 13.30 Tricuspid Valve RA Press: 15.00 Great Vessels Aorta Sinus of Valsalva: 3.50 2.0-3.5 cm Ao Asc: 3.70 2.1-3.4 cm Pulmonary Valve PV Pk Emerson: 0.99 Peak PV Grad: 4.00 Updated in Other Vendor System with Status of Final Anthony Ellis MD electronically signed on 12/23/2023 1:08:40 PM with status of Final
[2023-12-23 07:04] LABS: Anion Gap 12 (12-20); Blood Urea Nitrogen 21 mg/dL (9-16); Calcium 9.4 mg/dL (8.4-10.2); Carbon Dioxide 28 mmol/L (22-29); Chloride 106 mmol/L (96-108); Creatinine Clr Calc Pharmacy 122.8; Estimated Glomerular Filt Rate 56; Glucose Fasting 109 mg/dL (60-99); Glucose Random 109 mg/dL (60-115); Potassium 4.1 mmol/L (3.3-5.1); Sodium 142 mmol/L (135-145)
[2023-12-23 07:18] LABS: Hematocrit 33.6 % (42.0-52.0); Hemoglobin 10.6 g/dl (14.0-18.0); Mean Corpuscular HGB Conc 31.5 g/dl (31.0-36.0); Mean Corpuscular Hemoglobin 25.7 pg (27.0-33.0); Mean Corpuscular Volume 81.6 fL (80.0-98.0); Mean Platelet Volume 9.6 fL (9.4-12.4); Platelet Count 181 X10*3/uL (160-400); Red Blood Count 4.12 X10*6/uL (4.60-5.80); Red Cell Distribution Width 15.7 % (11.0-16.0); White Blood Count 5.2 X10*3/uL (4.8-10.8)
--- NOTE | 2023-12-23 08:57 | HO.PM.IMPN ---
Subjective Subjective Date of Service: 12/23/23 Interval History: No further blood per rectum Physical Exam Vital Signs: Vital Signs: Last Vital Signs Temp 97.0 F 12/23/23 07:39 Pulse 58 12/23/23 07:39 Resp 20 12/23/23 07:39 BP 172/88 H 12/23/23 07:39 Pulse Ox 97 12/23/23 07:39 O2 Del Method Room Air 12/23/23 07:39 BMI result Body Mass Index 65.1 Const: General: comfortable and no acute distress Orientation/consciousness: patient oriented x3 HEENT: Other: Unremarkable Head: Yes normal to inspection Neck: Neck: Yes normal visual inspection Chest: Chest palpation & inspection: normal inspection of the chest Resp: Auscultation: clear to auscultation bilaterally Cardio: Palpation: normal PMI Heart sounds: S1 normal heart sound present, S2 normal heart sound present, no gallops, no murmurs and no rubs GI: Palpation (GI): Soft to palpation Back/Spine/Pelvis: Other: unremarkable Skin: General skin exam: no rashes or lesions noted Neuro: General: patient oriented x3 Extrem: Other: Chronic changes in bilateral lower extremities Psych: Mental Status: mental status grossly normal Objective Data Active Medications Acetaminophen (Acetaminophen 325 Mg Tablet) 650 mg PO Q6H PRN PRN Reason: Pain, Mild (Pain Scale 1-3), fever or headache Amlodipine Besylate (Amlodipine Besylate 5 Mg Tablet) 5 mg PO DAILY [facility]; Protocol Benzonatate (Benzonatate 100 Mg Capsule) 100 mg PO TID PRN PRN Reason: Cough Calcium Carbonate (Calcium Carbonate 750 Mg Tab.Chew) 750 mg PO Q4H PRN PRN Reason: Heartburn Lactic Acid (Ammonium Lactate 12 % Lotion 226 Gm Bottle) 1 appl TOPICAL BID [facility]; Protocol Last Admin: 12/22/23 20:31 Dose: 1 appl Documented By: ALFRED Magnesium Hydroxide (Milk Of Magnesia 30 Ml Oral.Susp) 30 ml PO DAILY PRN PRN Reason: Constipation Melatonin (Melatonin 3 Mg Tablet) 6 mg PO BEDTIME PRN PRN Reason: Insomnia Ondansetron HCl (Ondansetron Hcl 4 Mg/2 Ml Vial) 4 mg IVPUSH Q8H PRN PRN Reason: Nausea and Vomiting Sodium Chloride (0.9 % Sodium Chloride Flush 3 Ml Syringe) 3 ml IVFLUSH QSHIFT [facility] Last Admin: 12/22/23 20:31 Dose: 3 ml Documented By: ALFRED Labs 12/23/23 06:25 12/23/23 06:25 Labs: Laboratory Results - last 24 hr 12/23/23 06:25 MCV 81.6 MCH 25.7 L MCHC 31.5 RDW 15.7 Plt Count 181 MPV 9.6 Absolute Nucleated RBC 0.000 Nucleated RBC % (auto) 0.0 Anion Gap 12 Estim Creat Clear Calc 122.8 Estimated GFR 56 Random Glucose 109 Fasting Glucose 109 H Calcium 9.4 Microbiology Microbiology Results: Microbiology 12/20/23 18:08 Urine Culture - Final Urine clean catch - Clean Catch Midstream Assessment and Plan (1) Lower GI bleed: Status: Acute Plan 58M PMH morbid obesity does not follow with pcp, presented with brbpr Acute blood loss anemia Due to lower GI bleed, likely hemorrhoidal versus diverticular Monitor CBC, colonoscopy tentatively planned for 12/24/23 afib new diagnosis, rate controlled - 60s, 70s hold off on AC due to gi bleed cardio appreciated follow up echo katelyn resolved with 1L IVF super morbid obesity complicated by chronic venous stasis weight loss recommended ammonium lactate, compression elevated bili ?gilberts, mostly indirect, abd us normal elevated bp likely has hypertension, started amlodipine 5 mg daily, monitor dvt prophylaxis - mechancial due to gi bleed full code reason for continued hospitalization:working up gi bleed Quality Stroke Does the patient have a stroke diagnosis?: No VTE Prior VTE?: No VTE Risk Level:: Medical - moderate - high VTE Device Contraindication: N/A - Device Ordered VTE Drug Contraindication: Treatment Not Indicated
[2023-12-23] MEDS: amLODIPine Besylate 5 MG TABLET PO (09:35)
[2023-12-23] MEDS: Ammonium Lactate 12 % Lotion 226 GM BOTTLE 1 APPL TOPICAL ×2 (09:35→22:20)
[2023-12-23] MEDS: 0.9 % Sodium Chloride Flush 3 ML SYRINGE IVFLUSH (09:36)
--- NOTE | 2023-12-23 12:31 | PM.PNCARD ---
Subjective Subjective Date of Service: 12/23/23 Interval history: Seen and examined at bedside. Asymptomatic. We will be undergoing endoscopy. Physical Exam Vital Signs: Last Vital Signs Temp 97.0 F 12/23/23 12:00 Pulse 60 12/23/23 12:00 Resp 20 12/23/23 12:00 BP 140/78 H 12/23/23 12:00 Pulse Ox 97 12/23/23 12:00 O2 Del Method Room Air 12/23/23 12:00 BMI result Body Mass Index 65.1 GENERAL APPEARANCE: in no acute distress, morbidly obese. NECK: no carotid bruit, no jugular venous distention. SKIN: no suspicious lesions, warm and dry. HEART: no murmurs, irregular rate and rhythm. LUNGS: clear to auscultation bilaterally. ABDOMEN: soft, nontender. EXTREMITIES: Bilateral significant lymphedema with skin changes. PERIPHERAL PULSES: equal. NEUROLOGIC: No gross deficits, AAO X 3 Objective Labs and Meds 12/23/23 06:25 12/23/23 06:25 Lab results: Laboratory Results - last 24 hr 12/23/23 06:25 WBC 5.2 RBC 4.12 L Hgb 10.6 L Hct 33.6 L MCV 81.6 MCH 25.7 L MCHC 31.5 RDW 15.7 Plt Count 181 MPV 9.6 Absolute Nucleated RBC 0.000 Nucleated RBC % (auto) 0.0 Sodium 142 Potassium 4.1 Chloride 106 Carbon Dioxide 28 Anion Gap 12 BUN 21 H Creatinine 1.31 Estim Creat Clear Calc 122.8 Estimated GFR 56 Random Glucose 109 Fasting Glucose 109 H Calcium 9.4 Progress Note: A&P Assessment and plan (1) Morbid obesity: Status: Acute (2) Lower GI bleed: Status: Acute Plan [age] year gentleman with morbid obesity, lymphedema, paroxysmal atrial fibrillation and GI bleed. Chads Vasc is 1 for hypertension. Anticoagulation currently is not recommended. Also he presented with GI bleed. He is morbidly obese and is quite sedentary. AFib is rate controlled currently and he is asymptomatic. He can proceed with endoscopy with intermediate risk. We will review the echocardiogram and if there is any concerns we will relay this to the primary team and Gastroenterology. Thank you for allowing me to participate in the care of your patient. Please feel free to contact me if you have any questions. Time Spent With Patient Time: Total time managing care of this patient today ____ minutes. Progress Note: Quality Stroke Does the patient have a stroke diagnosis?: No Procedures Date of Service Date of Service: 12/23/23
--- NOTE | 2023-12-23 16:04 | MHC.CM.PN ---
EMR reviewed and per MD rounds, pt is not medically cleared for discharge due to workup of GI bleed, and scope pending tomorrow.
[2023-12-23] MEDS: bisacodyL 5 MG TABLET.DR 10 MG PO ×2 (17:44→21:04)
[2023-12-23] MEDS: PEG 3350/Na Sulf,Bicarb,Cl/KCL 4,000 ML SOLN.RECON 4000 ML PO (17:46)
[2023-12-24] VITALS (11 sets, daily range): BP systolic 113–160; BP diastolic 67–93; PULSE 61–84; RESP 15–20; TEMP 36.1–36.8; O2SAT 92–100
[2023-12-24] MEDS: 0.9 % Sodium Chloride Flush 3 ML SYRINGE IVFLUSH (04:58)
[2023-12-24 06:50] LABS: Hematocrit 32.8 % (42.0-52.0); Hemoglobin 10.3 g/dl (14.0-18.0); Mean Corpuscular HGB Conc 31.4 g/dl (31.0-36.0); Mean Corpuscular Hemoglobin 25.3 pg (27.0-33.0); Mean Corpuscular Volume 80.6 fL (80.0-98.0); Mean Platelet Volume 9.2 fL (9.4-12.4); Platelet Count 176 X10*3/uL (160-400); Red Blood Count 4.07 X10*6/uL (4.60-5.80); Red Cell Distribution Width 15.8 % (11.0-16.0); White Blood Count 5.2 X10*3/uL (4.8-10.8)
[2023-12-24 07:04] LABS: Anion Gap 12 (12-20); Blood Urea Nitrogen 16 mg/dL (9-16); Calcium 8.8 mg/dL (8.4-10.2); Carbon Dioxide 29 mmol/L (22-29); Chloride 106 mmol/L (96-108); Creatinine Clr Calc Pharmacy 127.7; Estimated Glomerular Filt Rate 59; Glucose Fasting 101 mg/dL (60-99); Potassium 3.8 mmol/L (3.3-5.1); Sodium 143 mmol/L (135-145)
--- NOTE | 2023-12-24 07:27 | HO.ANESPROP2 ---
HPI - Anesthesia Eval Consult details Narrative: 58 yo M admitted with GI bleed PMFSH Active Problems Active Problems: All Active Problems Atrial fibrillation by electrocardiogram (Acute) Lower GI bleed (Acute) Bloody stool (Acute) Morbid obesity (Acute) Past Medical History Medical History Morbid obesity Family History Family History (Updated 12/21/23 @ 11:48 by Jerry Guzman MD) Mother No problems noted. Father No problems noted. Family history of problems with anesthesia: No Surgical History Surgical History (Updated 12/24/23 @ 06:54 by Zayra Ruiz RN) Hx of colonoscopy S/P hernia surgery S/P appendectomy History of Problems with Anesthesia: No Social History Social History Household Members: Other Household Members Other:: sister Housing: House Are you a primary workforce investment act career manager to a significant other at home: No Do you presently have visiting nurse or other home services: No Patient Tobacco Use Status: Never used Tobacco Smoked in Last 30 Days: No Use of substances other than those prescribed or required for medical reasons: No Currently Displaying Signs/Symptoms of Drug Intoxication Withdrawal: No Have you been hit, kicked, punched, or otherwise hurt by someone within the past year? If so, by whom?: No Do you feel safe in your current relationship?: No Current Relationship Is there a partner from a previous relationship who is making you feel unsafe now?: No Are you made to feel afraid or neglected: No Are you DNR?: No Advance Directives: No Advance Directives Information Provided: No Do you have a plan to hurt others: No Plan Recently lost weight without trying: No Eating poorly because of decreased appetite: No Nutrition Risks: No Nutritional Risk service: No Meds Allergies Allergy/AdvReac Type Severity Reaction Status Date / Time No Known Allergies Allergy Verified 12/24/23 06:54 Active Medications: Current Medications Acetaminophen (Acetaminophen 325 Mg Tablet) 650 mg PO Q6H PRN PRN Reason: Pain, Mild (Pain Scale 1-3), fever or headache Amlodipine Besylate (Amlodipine Besylate 5 Mg Tablet) 5 mg PO DAILY [facility]; Protocol Last Admin: 12/23/23 09:35 Dose: 5 mg Benzonatate (Benzonatate 100 Mg Capsule) 100 mg PO TID PRN PRN Reason: Cough Calcium Carbonate (Calcium Carbonate 750 Mg Tab.Chew) 750 mg PO Q4H PRN PRN Reason: Heartburn Lactic Acid (Ammonium Lactate 12 % Lotion 226 Gm Bottle) 1 appl TOPICAL BID [facility]; Protocol Last Admin: 12/23/23 22:20 Dose: 1 appl Magnesium Hydroxide (Milk Of Magnesia 30 Ml Oral.Susp) 30 ml PO DAILY PRN PRN Reason: Constipation Melatonin (Melatonin 3 Mg Tablet) 6 mg PO BEDTIME PRN PRN Reason: Insomnia Ondansetron HCl (Ondansetron Hcl 4 Mg/2 Ml Vial) 4 mg IVPUSH Q8H PRN PRN Reason: Nausea and Vomiting Sodium Chloride (0.9 % Sodium Chloride Flush 3 Ml Syringe) [facility] Last Admin: 12/24/23 04:58 Dose: 3 ml Home Medications ?Medication ?Instructions ?Recorded ?Confirmed ?Last Taken ?Type No Known Home Meds 12/20/23 12/20/23 Unknown History Exam Exam Date and Time: 12/24/23 0715 Height,Weight and Vital Signs: Height 6 ft 2 in Weight 230.1 kg Last Vital Signs Temp 98.2 F 12/24/23 06:49 Pulse 61 12/24/23 06:49 Resp 18 12/24/23 06:49 BP 146/93 H 12/24/23 06:49 Pulse Ox 97 12/24/23 06:49 O2 Del Method Room Air 12/24/23 06:49 Pertinent Lab Results Pertinent Lab Results: Laboratory Tests 12/20/23 12/20/23 12/20/23 12:24 15:27 16:05 WBC 5.6 RBC 4.52 L Hgb 11.7 L 10.6 L Hct 36.3 L 32.5 L MCV 80.3 MCH 25.9 L MCHC 32.2 RDW 15.7 Plt Count 178 MPV 9.4 Immature Gran % (Auto) 0.5 H Neut % (Auto) 78.7 H Lymph % (Auto) 12.7 L [place] % (Auto) 5.4 Eos % (Auto) 2.2 Baso % (Auto) 0.5 Lymph # (Auto) 0.7 L [place] # (Auto) 0.3 Eos # (Auto) 0.1 Baso # (Auto) 0.0 Abs Immat Gran (auto) 0.03 Absolute Neuts (auto) 4.4 Absolute Nucleated RBC 0.000 Nucleated RBC % (auto) 0.0 PT 13.0 H INR 1.1 Sodium 143 Potassium 4.3 Chloride 106 Carbon Dioxide 28 Anion Gap 13 BUN 27 H Creatinine 1.57 H Estim Creat Clear Calc 102.5 Estimated GFR 46 Random Glucose 125 H Fasting Glucose Estimat Average Glucose Hemoglobin A1c % Calcium 9.5 Magnesium 1.7 Iron TIBC % Saturation Unsat Iron Binding Ferritin Total Bilirubin 2.1 H Direct Bilirubin 0.7 H AST 14 ALT 13 Alkaline Phosphatase 97 Lactate Dehydrogenase Troponin I High Sens 2.9 Total Protein 7.7 Albumin 3.8 Triglycerides Cholesterol LDL Cholesterol, Calc HDL Cholesterol Lipase 16 Vitamin B12 Folate Urine Color Urine Appearance Urine pH Ur Specific [place] Urine Protein Urine Glucose (UA) Urine Ketones Urine Blood Urine Nitrite Ur Leukocyte Esterase Urine RBC Urine WBC Ur Squamous Epith Cells Urine Bacteria Hyaline Casts Stool Occult Blood POSITIVE Influenza Type A (PCR) NEGATIVE Influenza Type B (PCR) NEGATIVE RSV RNA Qual (PCR) NEGATIVE SARS-CoV-2 RNA (RT-PCR) NEGATIVE Blood Type A Positive Antibody Screen NEGATIVE 12/20/23 12/21/23 12/22/23 17:50 06:12 05:34 WBC 4.5 L 5.0 RBC 4.01 L Hgb 10.2 L Hct 32.2 L MCV 80.3 MCH 25.4 L MCHC 31.7 RDW 15.7 Plt Count 145 L MPV 9.7 Immature Gran % (Auto) Neut % (Auto) Lymph % (Auto) [place] % (Auto) Eos % (Auto) Baso % (Auto) Lymph # (Auto) [place] # (Auto) Eos # (Auto) Baso # (Auto) Abs Immat Gran (auto) Absolute Neuts (auto) Absolute Nucleated RBC 0.000 Nucleated RBC % (auto) 0.0 PT INR Sodium 143 Potassium 3.5 Chloride 108 Carbon Dioxide 28 Anion Gap 11 L BUN 20 H Creatinine 1.17 Estim Creat Clear Calc 137.6 Estimated GFR > 60 Random Glucose 97 Fasting Glucose Estimat Average Glucose Hemoglobin A1c % Calcium 8.9 D Magnesium Iron 37 L TIBC 225 L % Saturation 16 Unsat Iron Binding 188 Ferritin 83 Total Bilirubin Direct Bilirubin AST ALT Alkaline Phosphatase Lactate Dehydrogenase 158 Troponin I High Sens Total Protein Albumin Triglycerides Cholesterol LDL Cholesterol, Calc HDL Cholesterol Lipase Vitamin B12 1169 H Folate 7.7 Urine Color Yellow Urine Appearance Clear Urine pH 5.5 Ur Specific [place] 1.020 Urine Protein Trace Urine Glucose (UA) Negative Urine Ketones Negative Urine Blood Moderate (2+) H Urine Nitrite Negative Ur Leukocyte Esterase Moderate (2+) H Urine RBC 11-20 H Urine WBC 21-50 H Ur Squamous Epith Cells 0-2 Urine Bacteria Trace Hyaline Casts 0-2 Stool Occult Blood Influenza Type A (PCR) Influenza Type B (PCR) RSV RNA Qual (PCR) SARS-CoV-2 RNA (RT-PCR) Blood Type Antibody Screen 12/22/23 12/22/23 12/22/23 05:34 05:34 05:34 WBC 4.9 RBC 3.85 L 3.87 L Hgb 9.8 L 9.8 L Hct 31.3 L MCV MCH MCHC RDW Plt Count MPV Immature Gran % (Auto) Neut % (Auto) Lymph % (Auto) [place] % (Auto) Eos % (Auto) Baso % (Auto) Lymph # (Auto) [place] # (Auto) Eos # (Auto) Baso # (Auto) Abs Immat Gran (auto) Absolute Neuts (auto) Absolute Nucleated RBC Nucleated RBC % (auto) PT INR Sodium Potassium Chloride Carbon Dioxide Anion Gap BUN Creatinine Estim Creat Clear Calc Estimated GFR Random Glucose Fasting Glucose Estimat Average Glucose Hemoglobin A1c % Calcium Magnesium Iron TIBC % Saturation Unsat Iron Binding Ferritin Total Bilirubin Direct Bilirubin AST ALT Alkaline Phosphatase Lactate Dehydrogenase Troponin I High Sens Total Protein Albumin Triglycerides Cholesterol LDL Cholesterol, Calc HDL Cholesterol Lipase Vitamin B12 Folate Urine Color Urine Appearance Urine pH Ur Specific [place] Urine Protein Urine Glucose (UA) Urine Ketones Urine Blood Urine Nitrite Ur Leukocyte Esterase Urine RBC Urine WBC Ur Squamous Epith Cells Urine Bacteria Hyaline Casts Stool Occult Blood Influenza Type A (PCR) Influenza Type B (PCR) RSV RNA Qual (PCR) SARS-CoV-2 RNA (RT-PCR) Blood Type Antibody Screen 12/22/23 12/22/23 12/22/23 05:34 05:34 05:34 WBC RBC Hgb Hct 31.4 L MCV 81.3 81.1 MCH 25.5 L 25.3 L MCHC 31.3 RDW Plt Count MPV Immature Gran % (Auto) Neut % (Auto) Lymph % (Auto) [place] % (Auto) Eos % (Auto) Baso % (Auto) Lymph # (Auto) [place] # (Auto) Eos # (Auto) Baso # (Auto) Abs Immat Gran (auto) Absolute Neuts (auto) Absolute Nucleated RBC Nucleated RBC % (auto) PT INR Sodium Potassium Chloride Carbon Dioxide Anion Gap BUN Creatinine Estim Creat Clear Calc Estimated GFR Random Glucose Fasting Glucose Estimat Average Glucose Hemoglobin A1c % Calcium Magnesium Iron TIBC % Saturation Unsat Iron Binding Ferritin Total Bilirubin Direct Bilirubin AST ALT Alkaline Phosphatase Lactate Dehydrogenase Troponin I High Sens Total Protein Albumin Triglycerides Cholesterol LDL Cholesterol, Calc HDL Cholesterol Lipase Vitamin B12 Folate Urine Color Urine Appearance Urine pH Ur Specific [place] Urine Protein Urine Glucose (UA) Urine Ketones Urine Blood Urine Nitrite Ur Leukocyte Esterase Urine RBC Urine WBC Ur Squamous Epith Cells Urine Bacteria Hyaline Casts Stool Occult Blood Influenza Type A (PCR) Influenza Type B (PCR) RSV RNA Qual (PCR) SARS-CoV-2 RNA (RT-PCR) Blood Type Antibody Screen 12/22/23 12/22/23 12/22/23 05:34 05:34 05:34 WBC RBC Hgb Hct MCV MCH MCHC 31.2 RDW 15.8 15.7 Plt Count 152 L 157 L MPV 10.0 Immature Gran % (Auto) Neut % (Auto) Lymph % (Auto) [place] % (Auto) Eos % (Auto) Baso % (Auto) Lymph # (Auto) [place] # (Auto) Eos # (Auto) Baso # (Auto) Abs Immat Gran (auto) Absolute Neuts (auto) Absolute Nucleated RBC Nucleated RBC % (auto) PT INR Sodium Potassium Chloride Carbon Dioxide Anion Gap BUN Creatinine Estim Creat Clear Calc Estimated GFR Random Glucose Fasting Glucose Estimat Average Glucose Hemoglobin A1c % Calcium Magnesium Iron TIBC % Saturation Unsat Iron Binding Ferritin Total Bilirubin Direct Bilirubin AST ALT Alkaline Phosphatase Lactate Dehydrogenase Troponin I High Sens Total Protein Albumin Triglycerides Cholesterol LDL Cholesterol, Calc HDL Cholesterol Lipase Vitamin B12 Folate Urine Color Urine Appearance Urine pH Ur Specific [place] Urine Protein Urine Glucose (UA) Urine Ketones Urine Blood Urine Nitrite Ur Leukocyte Esterase Urine RBC Urine WBC Ur Squamous Epith Cells Urine Bacteria Hyaline Casts Stool Occult Blood Influenza Type A (PCR) Influenza Type B (PCR) RSV RNA Qual (PCR) SARS-CoV-2 RNA (RT-PCR) Blood Type Antibody Screen 12/22/23 12/22/23 12/22/23 05:34 05:34 05:34 WBC RBC Hgb Hct MCV MCH MCHC RDW Plt Count MPV 9.9 Immature Gran % (Auto) Neut % (Auto) Lymph % (Auto) [place] % (Auto) Eos % (Auto) Baso % (Auto) Lymph # (Auto) [place] # (Auto) Eos # (Auto) Baso # (Auto) Abs Immat Gran (auto) Absolute Neuts (auto) Absolute Nucleated RBC 0.000 0.000 Nucleated RBC % (auto) 0.0 0.0 PT INR Sodium 142 Potassium 4.1 Chloride 108 Carbon Dioxide 27 Anion Gap 11 L BUN 21 H Creatinine 1.21 Estim Creat Clear Calc 133.0 Estimated GFR > 60 Random Glucose 118 H Fasting Glucose 118 H Estimat Average Glucose 100 Hemoglobin A1c % 5.1 Calcium 9.0 Magnesium Iron TIBC % Saturation Unsat Iron Binding Ferritin Total Bilirubin 1.8 H Direct Bilirubin 0.5 AST 12 ALT 10 Alkaline Phosphatase 85 Lactate Dehydrogenase Troponin I High Sens Total Protein 6.5 Albumin 3.2 L Triglycerides 69 Cholesterol 122 LDL Cholesterol, Calc 74 HDL Cholesterol 35 L Lipase Vitamin B12 Folate Urine Color Urine Appearance Urine pH Ur Specific [place] Urine Protein Urine Glucose (UA) Urine Ketones Urine Blood Urine Nitrite Ur Leukocyte Esterase Urine RBC Urine WBC Ur Squamous Epith Cells Urine Bacteria Hyaline Casts Stool Occult Blood Influenza Type A (PCR) Influenza Type B (PCR) RSV RNA Qual (PCR) SARS-CoV-2 RNA (RT-PCR) Blood Type Antibody Screen 12/23/23 12/24/23 06:25 06:09 WBC 5.2 5.2 RBC 4.12 L 4.07 L Hgb 10.6 L 10.3 L Hct 33.6 L 32.8 L MCV 81.6 80.6 MCH 25.7 L 25.3 L MCHC 31.5 31.4 RDW 15.7 15.8 Plt Count 181 176 MPV 9.6 9.2 L Immature Gran % (Auto) Neut % (Auto) Lymph % (Auto) [place] % (Auto) Eos % (Auto) Baso % (Auto) Lymph # (Auto) [place] # (Auto) Eos # (Auto) Baso # (Auto) Abs Immat Gran (auto) Absolute Neuts (auto) Absolute Nucleated RBC 0.000 0.000 Nucleated RBC % (auto) 0.0 0.0 PT INR Sodium 142 143 Potassium 4.1 3.8 Chloride 106 106 Carbon Dioxide 28 29 Anion Gap 12 12 BUN 21 H 16 Creatinine 1.31 1.26 Estim Creat Clear Calc 122.8 127.7 Estimated GFR 56 59 Random Glucose 109 Fasting Glucose 109 H 101 H Estimat Average Glucose Hemoglobin A1c % Calcium 9.4 8.8 D Magnesium Iron TIBC % Saturation Unsat Iron Binding Ferritin Total Bilirubin Direct Bilirubin AST ALT Alkaline Phosphatase Lactate Dehydrogenase Troponin I High Sens Total Protein Albumin Triglycerides Cholesterol LDL Cholesterol, Calc HDL Cholesterol Lipase Vitamin B12 Folate Urine Color Urine Appearance Urine pH Ur Specific [place] Urine Protein Urine Glucose (UA) Urine Ketones Urine Blood Urine Nitrite Ur Leukocyte Esterase Urine RBC Urine WBC Ur Squamous Epith Cells Urine Bacteria Hyaline Casts Stool Occult Blood Influenza Type A (PCR) Influenza Type B (PCR) RSV RNA Qual (PCR) SARS-CoV-2 RNA (RT-PCR) Blood Type Antibody Screen Airway Mallampati Class: III TM Dist: >3cm Neck ROM: Full Loose/Missing/Broken Teeth: No (patient denies any loose or broken teeth) Heart: S1S2 Lungs: CTAB Assessment and Plan Assessment Anesthesia Assessment: Anesthesia Plan Discussed and Chart Reviewed Final Anesthetic Review Family History of Problems with Anesthesia: No History of Problems with Anesthesia: No NPO: Yes ASA Class: III Final Preanesthetic Review: No Changes in Pt Med Stat, Meds/Allgs Chart Reviewed, Consent Obtained/Reviewed and Anes Risks/Benef Reviewed Patient Risk: High Procedure Risk: Low Anesthetic Plan Anesthetic Plan: GA and Agree w/ Assess. and Plan Disposition: Standard PACU
--- NOTE | 2023-12-24 07:40 | MHC.SHP ---
Pre-Procedural Eval Section A - 24 Hr Update-Section A only Date of Service: 12/24/23 The patient is an INPATIENT: Yes The patient has been examined within 24 hours of the surgical procedure. The History & Physical has been completed within 30 days and I have reviewed it.: Yes Section B - Complete if H&P > 30 days Chief Complaint: LGIB Allergies: Allergies Allergy/AdvReac Type Severity Reaction Status Date / Time No Known Allergies Allergy Verified 12/24/23 06:54 Plan Diagnosis/Plan: Unchanged I have reviewed the history and physical and performed a pertinent physical examination on my patient. No changes have occurred unless specified. Time Spent With Patient Time: Total time managing care of this patient today ____ minutes.
--- NOTE | 2023-12-24 07:41 | P.PNGI_ITS ---
Subjective Subjective Date of Service: 12/24/23 Interval History: relaxed no abdominal pain took prep yesterday not noted any rectal bleeding no chest pain, no SOB Critical Care Time (minutes): 0 Physical Exam 2 Vital Signs: Vital Signs: Last Vital Signs Temp 98.2 F 12/24/23 06:49 Pulse 61 12/24/23 06:49 Resp 18 12/24/23 06:49 BP 146/93 H 12/24/23 06:49 Pulse Ox 97 12/24/23 06:49 O2 Del Method Room Air 12/24/23 06:49 BMI result Body Mass Index 65.1 EXAM: GENERAL: The patient is morbidly obese VITAL SIGNS:see workflow HEENT: Nonicteric sclerae, PERRLA, EOMI. Oropharynx clear. Moist mucous membranes. Conjunctivae appear well perfused. No thyroid mass. CHEST: Chest wall is nontender. HEART: Regular rate and rhythm without murmurs. LUNGS: Clear to auscultation bilaterally. ABDOMEN: Soft, positive bowel sounds, nontender, no organomegaly.no flank tenderness SKIN: No rash, no excessive bruising, petechiae, or purpura. NEUROLOGIC: Cranial nerves II-XII intact without motor/sensory deficit. Psych: normal affect Objective Data Labs 12/24/23 06:09 12/24/23 06:09 Labs: Laboratory Results - last 24 hr 12/24/23 06:09 WBC 5.2 RBC 4.07 L Hgb 10.3 L Hct 32.8 L MCV 80.6 MCH 25.3 L MCHC 31.4 RDW 15.8 Plt Count 176 MPV 9.2 L Absolute Nucleated RBC 0.000 Nucleated RBC % (auto) 0.0 Sodium 143 Potassium 3.8 Chloride 106 Carbon Dioxide 29 Anion Gap 12 BUN 16 Creatinine 1.26 Estim Creat Clear Calc 127.7 Estimated GFR 59 Fasting Glucose 101 H Calcium 8.8 D Microbiology Microbiology Results: Microbiology 12/20/23 18:08 Urine clean catch - Clean Catch Midstream Urine Culture - Final Procedures Date of Service Date of Service: 12/24/23 Progress Note: A&P Assessment and plan (1) Lower GI bleed: Status: Acute Plan 1/ Stable anemia with borderline iron sat and rectal bleeding PLAN: /1 -colonoscpy today per Dr Story, high risk due to morbid obesity, will attempt with anesthesia support, if any concerns will abort and would recommend transfer to tertiary center Time Spent With Patient Time: Total time managing care of this patient today ____ minutes. Quality Stroke Does the patient have a stroke diagnosis?: No VTE Prior VTE?: No VTE Risk Level:: Medical - moderate - high VTE Device Contraindication: N/A - Device Ordered VTE Drug Contraindication: Treatment Not Indicated
--- NOTE | 2023-12-24 09:02 | PC.NURSE ---
Respiratory was unsuccessful in obtaining stat ABG's as ordered by dr. meadows. Dr. Carbajal collected the sample and was sent to lab stat.
[2023-12-24 09:05] LABS: ABG Refer to POC result
[2023-12-24 09:06] LABS: ABG Base Excess 7.6 mmol/L; ABG HCO3 31 mmol/L (22-26); ABG pCO2 41 mmHg (32-45); ABG pH 7.48 (7.35-7.45); ABG pO2 86 mmHg (83-108)
--- NOTE | 2023-12-24 09:27 | HO.PM.IMPN ---
Subjective Subjective Date of Service: 12/24/23 Interval History: No further blood per rectum Physical Exam Vital Signs: Vital Signs: Last Vital Signs Temp 98.2 F 12/24/23 06:49 Pulse 61 12/24/23 06:49 Resp 18 12/24/23 06:49 BP 146/93 H 12/24/23 06:49 Pulse Ox 97 12/24/23 06:49 O2 Del Method Room Air 12/24/23 06:49 BMI result Body Mass Index 65.1 Const: General: comfortable and no acute distress Orientation/consciousness: patient oriented x3 HEENT: Other: Unremarkable Head: Yes normal to inspection Neck: Neck: Yes normal visual inspection Chest: Chest palpation & inspection: normal inspection of the chest Resp: Auscultation: clear to auscultation bilaterally Cardio: Palpation: normal PMI Heart sounds: S1 normal heart sound present, S2 normal heart sound present, no gallops, no murmurs and no rubs GI: Palpation (GI): Soft to palpation Back/Spine/Pelvis: Other: unremarkable Skin: General skin exam: no rashes or lesions noted Neuro: General: patient oriented x3 Extrem: Other: Chronic changes in bilateral lower extremities Psych: Mental Status: mental status grossly normal Objective Data Active Medications Acetaminophen (Acetaminophen 325 Mg Tablet) 650 mg PO Q6H PRN PRN Reason: Pain, Mild (Pain Scale 1-3), fever or headache Amlodipine Besylate (Amlodipine Besylate 5 Mg Tablet) 5 mg PO DAILY [facility]; Protocol Last Admin: 12/23/23 09:35 Dose: 5 mg Documented By: CATHIE Benzonatate (Benzonatate 100 Mg Capsule) 100 mg PO TID PRN PRN Reason: Cough Calcium Carbonate (Calcium Carbonate 750 Mg Tab.Chew) 750 mg PO Q4H PRN PRN Reason: Heartburn Lactic Acid (Ammonium Lactate 12 % Lotion 226 Gm Bottle) 1 appl TOPICAL BID [facility]; Protocol Last Admin: 12/23/23 22:20 Dose: 1 appl Documented By: EJ Magnesium Hydroxide (Milk Of Magnesia 30 Ml Oral.Susp) 30 ml PO DAILY PRN PRN Reason: Constipation Melatonin (Melatonin 3 Mg Tablet) 6 mg PO BEDTIME PRN PRN Reason: Insomnia Naloxone HCl (Naloxone Hcl 0.4 Mg/Ml Vial) 0.04 mg IVPUSH Q5M PRN PRN Reason: Excessive sedation or RR < 8 Ondansetron HCl (Ondansetron Hcl 4 Mg/2 Ml Vial) 4 mg IVPUSH Q8H PRN PRN Reason: Nausea and Vomiting Sodium Chloride (0.9 % Sodium Chloride Flush 3 Ml Syringe) 3 ml IVFLUSH QSHIFT [facility] Last Admin: 12/24/23 08:50 Dose: Not Given Documented By: GLENN Non-Admin Reason: Off Unit: Surgery Labs 12/24/23 06:09 12/24/23 06:09 Labs: Laboratory Results - last 24 hr 12/24/23 12/24/23 06:09 09:01 MCV 80.6 MCH 25.3 L MCHC 31.4 RDW 15.8 Plt Count 176 MPV 9.2 L Absolute Nucleated RBC 0.000 Nucleated RBC % (auto) 0.0 O2 Saturation 99.0 ABG pH at Pt Temp 7.48 H ABG pCO2 at Pt Temp 41 ABG pO2 at Pt Temp 86 ABG HCO3 31 H ABG Base Excess (Actual) 7.6 Anion Gap 12 Estim Creat Clear Calc 127.7 Estimated GFR 59 Fasting Glucose 101 H Calcium 8.8 D Assessment and Plan (1) Lower GI bleed: Status: Acute Plan 58M PMH morbid obesity does not follow with pcp, presented with brbpr Acute blood loss anemia Due to lower GI bleed, likely hemorrhoidal versus diverticular colonoscopy today, 12/24/23 afib new diagnosis, rate controlled - 60s, 70s hold off on AC due to gi bleed cardio appreciated echo - ef 60-65%, elevated right atrial pressure katelyn resolved with 1L IVF super morbid obesity complicated by chronic venous stasis weight loss recommended ammonium lactate, compression elevated bili ?gilberts, mostly indirect, abd us normal elevated bp likely has hypertension, started amlodipine 5 mg daily, monitor dvt prophylaxis - mechanical due to gi bleed full code reason for continued hospitalization:working up gi bleed Quality Stroke Does the patient have a stroke diagnosis?: No VTE Prior VTE?: No VTE Risk Level:: Medical - moderate - high VTE Device Contraindication: N/A - Device Ordered VTE Drug Contraindication: Treatment Not Indicated
--- NOTE | 2023-12-24 09:42 | HO.WOUND ---
Addendum entered by Cherri Hart RN 12/24/23 13:43: Left Leg Right Leg Etiology: No open wounds noted Hyperkeratinized tissue Wound Bed: thickened dry flaking layers - some areas easily removed and washed Drainage / Odor: Malodor noted when thickened layers removed - less odor noted towards end of cleansing Maria Teresa wound: Hyperpigmented tissue ? No Induration, Fluctuance or Warmth noted Pain: Denies Goals of Treatment: ? continue to wash lower legs and apply topical lotions per provider orders. Original Note: Wound Consult: Initial 58yr old?male admitted to [facility] on 12/20/23 - See progress notes and H&P for detailed history.? Wound consult placed for Bilateral Lower Leg Scaling - no open wounds noted.? Arrival to bedside patient was off the unit at procedure - spoke to direct care nurse and chart review complete including photo uploaded reviewed. Direct care nurse reports no open wounds noted - she reports thick dry scaling flaking tissue noted to both bilateral lower legs. She noted over all odor. Ammonium Lactate on MAR. Advices to continue to apply topical cream to soften thickened tissue. Recommendations below made based on above - lower legs were not assessed in person. Will attempt to assess in person later today and will update topical recommendations if needed. Recommendations: 1. Monitor for incontinence and moisture control, use barrier creams when needed for prevention and treatment. 2. Provide adequate and supplemental nutrition.? 3. Order bariatric mattress. 4. When applicable maintain blood glucose levels per Providers order. 5. Bilateral Lower Legs - Elevate off of bed surface with pillows. Cleanse with Lisa Shirley allow to soak with warm towel on patients legs for 15 min. Remove with gentle scrubbing with towel, followed by vaseline or Ammonium Lactate ordered per MAR. Provide washes daily while inpatient. Re-consult wound care Nurse for wound deterioration or wound changes.
--- NOTE | 2023-12-24 10:30 | PC.NURSE ---
dr. mattson and dr. meadows reviewed stat ABG results and ok to proceed.
--- NOTE | 2023-12-24 11:18 | HO.OPN-COLON ---
Colonoscopy Operative Note Operative Note Date of Service: 12/24/23 Narrative: Operative Information Procedure Description: Colonoscopy Indication: anemia, rectal bleeding Anesthesia: MAC COLONOSCOPY Instrument: Olympus variable stiffness adult scope 190L Colonoscopy Monitoring: Vital signs and clinical assessment, continuous EKG monitoring, Pulse oximetry, Carbon Dioxide monitoring and blood pressure monitoring were done throughout the procedure. Colon withdrawal time was 12 minutes. Procedure: The patient was placed in the left lateral decubitis position and pre-procedure medications were administered. After a digital rectal examination of the ano-rectum, the video colonoscope was inserted into the rectum and advanced through the colon to the cecum/TI. The colonoscope was slowly withdrawn in a retrograde panoramic fashion and the colon mucosa was carefully examined including a retroflexed view of the rectum. Findings and interventions are described below. Procedure Difficulty: moderate due to obesity Findings: Terminal Ileum- several nodules noted consistent with lymphoid nodular hyperplasia, one was larger than normal, might be a lipoma, bx were taken Cecum:normal ileocecal valve, possible 8-10 sessile polyp on edge of valve vs prolapsed tissue, removed with cold snare Ascending Colon: normal Transverse Colon - 10 mm sessile polyp removed with cold snare Descending Colon:normal Sigmoid Colon: normal Rectum: Retroflexion with small inflammed internal hemorrhoids seen, grade I Anorectum - normal Intervention: cold snare, cold forceps biopsy Colon preparation: [employer] Bowel Preparation Scale Right colon; 2 Transverse colon: 2 Left colon; 2 (0 = Unprepared colon segment with mucosa not seen due to solid stool that cannot be cleared. 1 = Portion of mucosa of the colon segment seen, but other areas of the colon segment not well seen due to staining, residual stool and/or opaque liquid. 2 = Minor amount of residual staining, small fragments of stool and/or opaque liquid, but mucosa of colon segment seen well. 3 = Entire mucosa of colon segment seen well with no residual staining, small fragments of stool or opaque liquid) Impression and Post Procedure Diagnosis: TI nodule colon polyps internal hemorrhoids Plan: High fiber diet leaflet Avoid straining at stool, epsom salts and sitz bath, anusol supps or cream Repeat Colonoscopy in 3-5 years if health allows or earlier if clinically indicated Above findings were reviewed with the patient and relevant handouts were provided if indicated.
[2023-12-24] MEDS: amLODIPine Besylate 5 MG TABLET PO (12:42)
[2023-12-24] MEDS: Ammonium Lactate 12 % Lotion 226 GM BOTTLE 1 APPL TOPICAL ×2 (12:44→20:39)
[2023-12-25] VITALS: BP 152/70; PULSE 68; RESP 20; TEMP 36.1; O2SAT 94
[2023-12-25] MEDS: 0.9 % Sodium Chloride Flush 3 ML SYRINGE IVFLUSH ×2 (00:12→07:51)
[2023-12-25 03:54] VITALS: BP 150/72; PULSE 70; RESP 20; TEMP 36.1; O2SAT 95
[2023-12-25 07:17] LABS: Hematocrit 32.6 % (42.0-52.0); Hemoglobin 10.2 g/dl (14.0-18.0); Mean Corpuscular HGB Conc 31.3 g/dl (31.0-36.0); Mean Corpuscular Hemoglobin 25.4 pg (27.0-33.0); Mean Corpuscular Volume 81.1 fL (80.0-98.0); Mean Platelet Volume 9.5 fL (9.4-12.4); Platelet Count 179 X10*3/uL (160-400); Red Blood Count 4.02 X10*6/uL (4.60-5.80); Red Cell Distribution Width 15.4 % (11.0-16.0); White Blood Count 7.2 X10*3/uL (4.8-10.8)
[2023-12-25 07:29] VITALS: O2SAT 98
[2023-12-25 07:36] LABS: Anion Gap 13 (12-20); Blood Urea Nitrogen 20 mg/dL (9-16); Carbon Dioxide 29 mmol/L (22-29); Chloride 106 mmol/L (96-108); Creatinine Clr Calc Pharmacy 111.8; Estimated Glomerular Filt Rate 50; Glucose Fasting 143 mg/dL (60-99); Potassium 4.6 mmol/L (3.3-5.1); Sodium 143 mmol/L (135-145)
[2023-12-25 07:37] VITALS: BP 148/68; PULSE 56; RESP 20; TEMP 36.1; O2SAT 96
[2023-12-25] MEDS: amLODIPine Besylate 5 MG TABLET PO (07:50)
[2023-12-25] MEDS: Apixaban 5 MG TABLET PO (07:50)
[2023-12-25] MEDS: Ammonium Lactate 12 % Lotion 226 GM BOTTLE 1 APPL TOPICAL (07:50)
--- NOTE | 2023-12-25 09:05 | HO.POSTANES ---
Post Anesthesia Evaluation Post Anesthesia Evaluation Date of Service: 12/24/23 Vital Signs: Vital Signs Temp Pulse Resp BP Pulse Ox O2 Del Method 12/25/23 07:37 96.9 F 56 20 148/68 H 96 Room Air 12/25/23 03:54 96.9 F 70 20 150/72 H 95 Room Air 12/25/23 00:00 97.0 F 68 20 152/70 H 94 Room Air Anesthesia: General Endotracheal-GETA Mental Status: Awake Pain Control: Satisfactory Nausea/Vomiting: None Hydration: Adequate Anesthesia-Related Issues: No Anes. Related Issues
--- NOTE | 2023-12-25 09:55 | PM.DS ---
DS: Providers Provider Date of Service: 12/25/23 Date of admission: 12/20/23 18:42 Date of discharge: 12/25/23 Primary care physician: None Physician Consults: 12/20/23 18:42 Consult to Gastroenterology Routine Consulting Provider: Anmol Story Reason for consultation: BRBPR, ?LGIB 12/20/23 19:09 Consult to Cardiology Routine Consulting Provider: [facility] Reason for consultation: Newly diagnosed AFib 12/23/23 09:57 Consult to Wound Care Routine Reason for consultation: bilateral leg lymphedema DS: Diagnosis Discharge Diagnosis (1) Lower GI bleed: Status: Acute (2) Atrial fibrillation by electrocardiogram: Status: Acute (3) Morbid obesity: Status: Acute (4) Uncontrolled hypertension: Status: Acute DS: Summary Hospital Course Hospital Course: Admission note HPI Pt is a 58-year-old male with PMH significant for appendectomy and hernia repair, not on home medication and does not regularly follow with PCP?who presents to the ED from urgent care for evaluation of bright red blood per rectum. Patient reports symptoms started approximately 3 months ago when he began noticing intermittent bright red blood after bowel movements. Frequency and duration of bleeding has been increasing, until yesterday he was ?dumping blood? with clots in the toilet. After prompting from his family patient initially presented to a walk-in clinic where he was then redirected to the ED for further evaluation. Patient otherwise denies any acute medical concerns. No lightheadedness or dizziness. Denies diarrhea. No abdominal pain. Denies fever, chills, nausea, vomiting. No increased fatigue. Denies chest pain/pressure, palpitations. No shortness a breath or difficulty breathing. Of note, patient is a rather poor historian without a clear sense of his PMH. Has not followed with a PCP for 30+ years. Reports previously on Coumadin 30 years ago but unsure of indication or why he stopped taking the medication. In the ED pt was hypothermic as low as 96.4, elevated heart rate of 93, and hypertensive at 155/99. Labs were significant for stool positive for occult blood, initial H&H of 11.7/36.3 with repeat 4 hours later at 10.6/32.5, BUN 27, creatinine 1.57, and bilirubin 2.1. No significant electrolyte abnormalities. No leukocytosis. Initial troponin 2.9. Tested negative for flu, RSV, and COVID. KUB official read pending. EKG demonstrated AFib without evidence of significant ST elevations or depressions. Pt was treated with 1L IVF. Pt will be admitted to the hospital for treatment and further evaluation of hematochezia concerning for acute lower GI bleed. Hospital course - Acute blood loss anemia Due to lower GI bleed, likely hemorrhoidal based on colonoscopy done on 12/24/23. recommended avoid constipation and straining and to start high fiber diet. - New onset atrial fibrillation. new diagnosis, rate controlled around 60s-70s. ECHO EF of 60-65%, elevated right atrial pressure. Started on Eliquis as CHADVASC score of 1. discussed the need and risks of blood thinners and he agreed to start treatment. Cardiology saw him inpatient and will continue to follow as outpatient. - Acute kidney injury on presentation. Improved back to baseline. - morbid obesity complicated by chronic venous stasis weight loss recommended. ammonium lactate on discharged for lower extremities. - Uncontrolled HTN. likely has hypertension, started amlodipine 5 mg daily, monitor as outpatient. Discharge plan Avoid constipation and straining Use Fibers with goal of 1-2 bowel movements; Hold for diarrhea Start Eliquis 5 mg twice daily as blood thinner to reduce the chance of stroke Amlodipine 5 mg daily for elevated blood pressure; monitor BP at home Follow up with PCP as outpatient as you will need closer monitoring and follow ups. Time Attestation Discharge Coordination Time (in mins): 42 Quality: Safe Use of Opioids Does Pt have an Active Cancer Diagnosis on the Problem List?: No Quality: Stroke Does the patient have a stroke diagnosis?: No Physical Exam Vital Signs: Vital Signs: Last Vital Signs Temp 96.9 F 12/25/23 07:37 Pulse 56 12/25/23 07:37 Resp 20 12/25/23 07:37 BP 148/68 H 12/25/23 07:37 Pulse Ox 96 12/25/23 07:37 O2 Del Method Room Air 12/25/23 07:37 BMI result Body Mass Index 65.1 DS: Data Data Completed and Pending Pending studies at discharge: Pending at discharge 12/24/23 11:00 Surgical [PTH] Routine Labs on day of discharge: Laboratory Results - last 24 hr 12/25/23 06:46 WBC 7.2 RBC 4.02 L Hgb 10.2 L Hct 32.6 L MCV 81.1 MCH 25.4 L MCHC 31.3 RDW 15.4 Plt Count 179 MPV 9.5 Absolute Nucleated RBC 0.000 Nucleated RBC % (auto) 0.0 Sodium 143 Potassium 4.6 D Chloride 106 Carbon Dioxide 29 Anion Gap 13 BUN 20 H Creatinine 1.44 H Estim Creat Clear Calc 111.8 Estimated GFR 50 Fasting Glucose 143 H Calcium 9.0 Discharge Plan Discharge Anticipated Discharge Date/Time: 12/25/23 09:41 Patient Disposition: Home, Self-Care Discharge Diagnosis: Internal hemorrhoids. Referrals: Physician,None [Primary Care Provider] - 1 Week Discharge Medications: New Eliquis 5 mg Tablet 5 mg PO BID Qty: 180 0RF ammonium lactate 12 % Lotion 1 appl topical BID Qty: 400 0RF Protocol: Apply to: Apply to: Lower legs bilaterally amlodipine 5 mg Tablet 5 mg PO DAILY Qty: 90 0RF Protocol: Hold for SBP< HOLD for SBP < : 90 psyllium husk 0.4 gram capsule 0.4 g PO BEDTIME Qty: 90 0RF Discharge Orders: Discharge Order (Routine); Ordered 12/25/23 Ordered By: Chelsea Morel Diet: Low salt diet Activity on Discharge: As tolerated Stand Alone Forms: Patient Portal Discharge page Print Language: Kinyarwanda Care Plan Goals: Colonoscopy showed internal hemorrhoids as the source of blood with stool. Blood levels remained stable after starting blood thinner (Eliquis) for evidence of irregular heart ryhthm (Atrial fibrillation) to decrease the chances of brain stroke. Avoid constipation and straining Use Fibers with goal of 1-2 bowel movements; Hold for diarrhea Start Eliquis 5 mg twice daily as blood thinner to reduce the chance of stroke Amlodipine 5 mg daily for elevated blood pressure; monitor BP at home Follow up with PCP as outpatient as you will need closer monitoring and follow ups. Health Concerns: Read below Plan of Treatment: Read below Assessment: Read below
--- NOTE | 2023-12-25 11:50 | MHC.CM.PN ---
Pt is medically cleared for discharge home self-care today, pts mother will transport him home.
== END 2023-12-25 14:00 | disposition home or self-care (01) | DRG 254 ==
LOC: HO.ED 17:19 → HO.EDOVER 18:49 → HO.IMC 22:47
PROVIDERS: Anesthesiology; Internal Medicine; Internal Medicine Gastroenterology; Physician Assistant; Admitting Provider Student in an Organized Health Care Education/Training Program; Emergency Provider Internal Medicine; Referring Provider Student in an Organized Health Care Education/Training Program; Visit Provider Student in an Organized Health Care Education/Training Program
PROC: 0DJD8ZZ Inspection of Lower Intestinal Tract, Via Natural or Artificial Opening Endoscopic (ICD-10-PCS; CPT 45378; principal; 2023-12-24 07:30)
DX: K64.0 First degree hemorrhoids (principal); N17.9 Acute kidney failure, unspecified; D62 Acute posthemorrhagic anemia; K62.5 Hemorrhage of anus and rectum; E66.01 Morbid (severe) obesity due to excess calories; K63.5 Polyp of colon; I10 Essential (primary) hypertension; E80.4 Gilbert syndrome; K76.0 Fatty (change of) liver, not elsewhere classified; Z71.3 Dietary counseling and surveillance; I48.91 Unspecified atrial fibrillation; I89.0 Lymphedema, not elsewhere classified; I87.2 Venous insufficiency (chronic) (peripheral); Z68.44 Body mass index [BMI] 60.0-69.9, adult; Z20.822 Contact with and (suspected) exposure to COVID-19
CPT/HCPCS: 0241U; 36415; 74018; 76700; 80048; 80061; 80076; 81001; 82272; 82607; 82728; 82746; 82803; 83036; 83540; 83615; 83690; 83735; 84484; 85014; 85018; 85025; 85027; 85610; 86850; 86900; 86901; 87086; 88305; 93005; 93306; 99202; 99285; J0330; J1100; J2405; J2704; Q9957

== ENCOUNTER 2023-12-20 18:42 | Outpatient (BNV) | payer OTHER, SELFPAY | END 2023-12-23 07:00 | PROVIDERS: Admitting Provider Student in an Organized Health Care Education/Training Program; Emergency Provider Internal Medicine; Visit Provider Internal Medicine Cardiovascular Disease | DX: I48.91 Unspecified atrial fibrillation (principal) | CPT/HCPCS: 93306 ==

== ENCOUNTER → 2023-12-20 18:42 | Outpatient (BNV) | payer OTHER, SELFPAY | PROVIDERS: Admitting Provider Student in an Organized Health Care Education/Training Program; Emergency Provider Internal Medicine; Visit Provider Internal Medicine | DX: K92.2 Gastrointestinal hemorrhage, unspecified (principal) | CPT/HCPCS: 99223; 99232; 99239 ==

== ENCOUNTER → 2023-12-20 18:42 | Outpatient (BNV) | payer OTHER, SELFPAY | PROVIDERS: Admitting Provider Student in an Organized Health Care Education/Training Program; Emergency Provider Internal Medicine; Visit Provider Internal Medicine | DX: E66.01 Morbid (severe) obesity due to excess calories (principal); K92.2 Gastrointestinal hemorrhage, unspecified | CPT/HCPCS: 99223; 99232 ==

== ENCOUNTER → 2023-12-20 18:42 | Outpatient (BNV) | payer OTHER, SELFPAY | PROVIDERS: Admitting Provider Student in an Organized Health Care Education/Training Program; Emergency Provider Internal Medicine; Visit Provider Internal Medicine Gastroenterology | DX: K92.2 Gastrointestinal hemorrhage, unspecified (principal) | CPT/HCPCS: 45380; 45385; 99222; 99232 ==

== ENCOUNTER 2024-01-08 12:08 | Outpatient (AMB) | payer OTHER, SELFPAY ==
--- NOTE | 2024-01-08 12:35 | MHC.PC.OV ---
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 Transferring care from Dr Abdalla ([facility]) . Medical records have not been requested and have not received. Pt was seen in [facility] - 12/25. Pt decline flu shot today. Reference Library Assistant Required: No Sap Project Manager: Present Accompanied by: Sister Allergies No Known Allergies Allergy (Verified 01/08/24 12:57) Medication List - Last Reconciled 01/08/24 by Karoline Saez MD amlodipine 5 mg See Protocol PO DAILY ammonium lactate 12% 1 appl See Protocol topical BID apixaban (Eliquis) 5 mg PO BID psyllium husk 0.4 grams PO BEDTIME Tobacco use date assessed: 01/08/24 Dental Screening Dental Screen Date: 01/08/24 Did you have a dental visit in the last 12 months?: No Did you have a dental problem in the last 6 months where you did not have access to dental care?: No Was dental information given to patient?: No HPI EHS TEACHER/HDF GI bleed HPI Details 58-year-old male, new to practice, here to establish care with a new provider. Has medical history of appendectomy and hernia repair, not on any medications and has not been following with any PCP prior to his recent admission at [facility], where he was seen for evaluation of bright red blood per rectum. He was also diagnosed during admission with atrial fibrillation w/o evidence of any significant ST elevations/ depressions. Lower GI bleed likely hemorrhoidal, based on colonoscopy done 12/24/2023, which also showed 2 polyps 1 of it was tubular adenoma, removed and presence of focal ileitis. He was advised to start a high-fiber diet to avoid being constipated and straining. Has newly diagnosed atrial fibrillation. Echocardiogram showed an EF of 60-65% with elevated right atrial pressure. The patient was started on Eliquis . Has an appointment for Cardiology on outpatient. Is morbidly obese with chronic venous stasis, discharged with the ammonia lactate prescription to be applied on lower extremities. Patient states that he was previously being seen at the lymphedema Clinic in [facility]. Patient also inquired whether he would be able to pick candidate for the new medication for weight loss namely, Wegovy or Ozempic. Has uncontrolled hypertension, recently started on amlodipine 5 mg daily, with blood pressure today within normal limits.. [facility] Medical History (Updated 01/11/24 @ 06:22 by Karoline Saez MD) Ileitis, terminal History of adenomatous polyp of colon Morbid obesity with BMI of 50.0-59.9, adult History of GI bleed Anemia Lymphedema associated with obesity Atrial fibrillation Atrial fibrillation by electrocardiogram Morbid obesity Surgical History (Updated 01/11/24 @ 06:20 by Karoline Saez MD) Hx of colonoscopy S/P hernia surgery S/P appendectomy Family History Mother No problems noted. Father No problems noted. Social History Household Members: Other Household Members Other:: sister Housing: House Are you a primary health care analyst to a significant other at home: No Do you presently have visiting nurse or other home services: No Alcohol intake: never Patient Tobacco Use Status: Never used Tobacco e-Cigarette/Vaping Use: Never Used Second Hand Smoke Exposure: No service: No Current occupational status: retired Cognitive needs: No Hearing needs: No Vision needs: Yes (Reading Glasses) Questionnaire PHQ-9 Over the last 2 weeks, how often have you been bothered by any of the following problems? 1. Little interest or pleasure in doing things: not at all 2. Feeling down, depressed, or hopeless: not at all 3. Trouble falling or staying asleep, or sleeping too much: not at all 4. Feeling tired or having little energy: several days 5. Poor appetite or overeating: several days 6. Feeling bad about yourself - or that you are a failure or have let yourself or your family down: not at all 7. Trouble concentrating on things, such as reading the newspaper or watching television: not at all 8. Moving or speaking so slowly that other people could have noticed. Or the opposite - being so fidgety or restless that you have been moving around a lot more than usual: not at all 9. Thoughts that you would be better off or of hurting yourself in some way: not at all Total score: 2 Depression Screening Interpretation: Negative Depression Screening Done: Yes 83692 - PHQ-9 Billing: Yes Source: Developed by Drs. Francis Ryan, Sonya Armas, Yakov Mena and colleagues, with an educational carmen from [employer]. Thrive Questionnaire Date Thrive assessed: 01/08/24 I am a: Patient What is your living situation today?: I have a steady place to live Within the past 12 months, did the food you bought not last and you didn't have the money to get more?: Never true Within the past 12 months, did you worry whether your food would run out before you got money to buy more?: Never true Do you have trouble paying for medicines?: No Do you have trouble getting transportation to medical appointments?: No Do you have trouble paying your heating and electricity bill?: No Do you have trouble taking care of your child, family member or friend?: I choose not to answer this question Do you have trouble with day-to-day activities such as bathing, preparing meals, shopping, managing finances, etc.?: I choose not to answer this question Are you interested in more education?: No Please select the resources that you would like help with: None Currently or been in a relationship where the following occur: No concerns reported THRIVE Score: 0 AUDIT C Alcohol Use Questionnaire (AUDIT-C) 1. How often do you have a drink containing alcohol?: Never Total Score: 0 XENA-7 AMB Questionnaire XENA-7 Date XENA - 7 assessed: 01/08/24 Feeling nervous, anxious, or on edge: 1 = Several days Not being able to stop or control worryin = Not at all Worrying too much about different things: 1 = Several days Trouble relaxin = Several days Being so restless that it is hard to sit still: 0 = Not at all Becoming easily annoyed or irritable: 1 = Several days Feeling afraid as if something awful might happen: 1 = Several days Total XENA-7 score (0-4 normal; 5-9 mild; 10-14 moderate; 15-21 severe): 5 Source: Developed by Drs. Francis Ryan, Sonya Armas, Yakov Mena and colleagues, with an educational carmen from [employer]. XENA-7 Assessment Billing XENA-7 Assessment Tool: XENA-7 Assessment 60960 Review of Systems Const Denies body aches, Denies fever(s), Denies headache(s) and Denies weakness Eyes Denies change in vision, Denies eye discharge and Denies itchy eyes ENT Denies dizziness, Denies headache(s), Denies nasal congestion, Denies nasal discharge and Denies sore throat Card Denies chest pain, Denies lightheadedness, Denies palpitations and Denies dyspnea Resp Denies chest congestion, Denies cough, Denies dyspnea and Denies wheezing GI Denies abdominal pain and Denies heartburn Denies hematuria, Denies difficulty urinating, Denies dysuria, Denies urinary frequency and Denies urinary urgency Musc Reports arthralgias and Reports stiffness Skin/Breast Reports dry skin, Reports nail changes and Reports rash Neuro Denies dizziness, Denies headache(s) and Denies weakness Psych Reports no additional complaints Endo Denies polydipsia, Denies polyuria and Denies palpitations Robin/Lymph Denies easy bruising Aller/Immun Denies itchy eyes, Denies seasonal rhinorrhea and Denies wheezing Physical exam (Primary Care) Vital Signs: Last Vital Signs Pulse 85 01/08/24 12:38 BP 122/78 01/08/24 12:38 Pulse Ox 97 01/08/24 12:38 Oxygen Delivery Method Room Air 01/08/24 12:38 BMI result Body Mass Index 66.6 Tobacco/Smoking Status: Tobacco use Status Tobacco use date assessed 01/08/24 01/08/24 12:42 Patient Tobacco Use Status Never used Tobacco 01/08/24 12:36 e-Cigarette/Vaping Use Never Used 01/08/24 12:42 PHQ-9: PHQ-9 Score PHQ-9: Total score 2 01/08/24 12:54 Depression Screening Interpretation: Negative Thrive Assessment: Date of Thrive Assessment Date Thrive assessed 01/08/24 01/08/24 12:36 Currently or been in a relationship where the following occur: No concerns reported Const Other: Sister accompanying patient on this visit General: comfortable, no acute distress, alert, Physically active and poor hygiene Nutritional Appearance: obese morbidly obese Orientation/consciousness: patient oriented x3 Limitations: physical limitations HENMT Ears: external ears normal, TM's normal bilaterally and EAC's normal General nose exam: Normal external nose present and No nasal discharge present Face and sinus: Yes face symmetric Mouth: Normal oral and palatal mucosa present, tongue normal, oropharynx normal and moist mucous membranes Eyes General: appearance normal, both eyes and all related structures Conjunctivae: conjunctivae normal Sclerae: sclerae normal Pupils: Equal, round and reactive pupils present EOM: EOMs intact bilaterally Neck Neck: Yes full ROM, Yes no lymphadenopathy and Yes supple Resp Effort & Inspection: normal respiratory effort and able to speak in complete sentences Auscultation: diminished lung sounds Cardio Other: Irregularly irregular rhythm GI Inspection: Yes Abdominal panniculus present and Yes obesity Palpation (GI): Soft to palpation, nontender and no masses Auscultation: normal bowel sounds Back/Spine/Pelvis Back: No back tenderness Skin Other: Dry, Thick lichenified patch in lower extremities, no open sores seen Neuro General: patient oriented x3, tone normal, moves all extremities, Normal light touch and pain sensation and no focal motor deficits Cranial nerves: Yes CN's II-XII intact bilaterally and Yes Equal, round and reactive pupils present Cognition (Neuro): normal cognition Extrem General: Yes full ROM, Yes no joint enlargement, Yes no clubbing, cyanosis or edema and Yes no calf tenderness Psych Appearance: grossly normal and well kempt Mental Status: mental status grossly normal Speech and movement: Normal speech and movement present Affect: normal affect Attitude: cooperative Thought process: Normal thought process present Thought content: Normal thought content present, suicidality and no homicidality Results Reviewed Results Reviewed: Name: Jey Hicks Age/Sex: 58/M : 1965 Unit#: [id number] Attend Dr: Chelsea Morel MD Re12/20/23 Status: DIS IN Location: [facility] 478-1 Disch: 12/25/23 SPEC : [id number] ALICIA: 12/25/23 STATUS: COMP REQ : [id number] RECD: 12/25/[address]: Ric Howe MD COMP: 12/25/23 ENTERED: 12/25/[address] [facility] [address]: Physician,None ORDERED: CBC No Diff Test Result Flag Reference WBC 7.2 4.8-10.8 X10*3/uL RBC 4.02 L 4.60-5.80 X10*6/uL HGB 10.2 L 14.0-18.0 g/dl HCT 32.6 L 42.0-52.0 % MCV 81.1 80.0-98.0 fL MCH 25.4 L 27.0-33.0 pg MCHC 31.3 31.0-36.0 g/dl RDW 15.4 11.0-16.0 % PLT 179 160-400 X10*3/uL MPV 9.5 9.4-12.4 fL NRBC Pct Auto 0.0 0.0-0.2 /100WBC NRBC Abs Auto 0.000 0.0-0.012 X10*3/uL Name: Jey Hicks Age/Sex: 58/M : 1965 Unit#: [id number] Attend Dr: Chelsea Morel MD Re12/20/23 Status: DIS IN Location: [address] Disch: 12/25/23 SPEC : [id number] ALICIA: 12/25/23 STATUS: COMP REQ : [id number] RECD: 12/25/[address]: Ric Howe MD COMP: 12/25/23 ENTERED: 12/25/[address]: Physician,None ORDERED: Met Prof Fast Test Result Flag Reference Sodium 143 135-145 mmol/L Potassium 4.6 # 3.3-5.1 mmol/L CL 106 96-108 mmol/L CO2 29 22-29 mmol/L Gap 13 12-20 BUN 20 H 9-16 mg/dL Creat 1.44 H 0.5-1.4 mg/dL Estimated CrCl 111.8 eGFR (calculated from the MDRD study equation) and eCrCl (calculated from the Cockcroft-Gault equation) are based on different parameters and may not yield comparable results. If eCrCl result is absurd, please check patient's height/weight. EGFR 50 NOTE: For -[place] individuals, multiply the result by 1.210. Chronic Kidney Disease: Estimated GFR < 60 mL/min/1.73m2 Severe Kidney Disease: Estimated GFR < 15 mL/min/1.73m2 FBS 143 H 60-99 mg/dL A fasting glucose of 126 mg/dl or greater on more than one occasion is considered diagnostic of diabetes. CA 9.0 8.4-10.2 mg/dL Laboratory Tests 12/22/23 05:34 Fasting Glucose 118 H Estimat Average Glucose 100 Laboratory Tests 12/22/23 05:34 Hemoglobin A1c % 5.1 Name: Jey Hicks Age/Sex: 58/M : 1965 Unit#: [id number] Attend Dr: Chelsea Morel MD Re12/20/23 Status: DIS IN Location: [facility] 478-1 Disch: 12/25/23 SPEC : [id number] ALICIA: 12/22/23 STATUS: COMP REQ : [id number] RECD: 12/22/[address]: Mitul Liang COMP: 12/22/23 ENTERED: 12/22/23-[address]: Ric Howe MD Physician,None ORDERED: Liver Panel, BMP, Met Prof Fast, Lipid Panel Test Result Flag Reference Sodium 142 135-145 mmol/L Potassium 4.1 3.3-5.1 mmol/L CL 108 96-108 mmol/L CO2 27 22-29 mmol/L Gap 11 L 12-20 BUN 21 H 9-16 mg/dL Creat 1.21 0.5-1.4 mg/dL Estimated CrCl 133.0 eGFR (calculated from the MDRD study equation) and eCrCl (calculated from the Cockcroft-Gault equation) are based on different parameters and may not yield comparable results. If eCrCl result is absurd, please check patient's height/weight. EGFR > 60 NOTE: For -[place] individuals, multiply the result by 1.210. Chronic Kidney Disease: Estimated GFR < 60 mL/min/1.73m2 Severe Kidney Disease: Estimated GFR < 15 mL/min/1.73m2 Glucose, Random 118 H 60-115 mg/dL FBS 118 H 60-99 mg/dL A fasting glucose from 100-125 mg/dl is considered impaired (pre-diabetes). CA 9.0 8.4-10.2 mg/dL Total Bili 1.8 H 0.0-1.0 mg/dL Direct Bili 0.5 0.0-0.5 mg/dL AST (GOT) 12 5-37 U/L ALT (GPT) 10 0-40 U/L Protein, Total 6.5 6.5-8.0 g/dL Alb 3.2 L 3.5-5.0 g/dL Triglyceride 69 <150 mg/dL Desirable Triglyceride: less than 150 mg/dL Borderline High Triglyceride 150-199 mg/dL High Triglyceride: 200-499 mg/dL Very High Triglyceride: greater than or equal to 5OO mg/dL Cholesterol 122 <200 mg/dL Desirable Cholesterol: less than 200 mg/dL Borderline High Cholesterol: 200-239 mg/dL High Cholesterol: greater than 239 mg/dL LDL Calculated 74 <100 mg/dL Desirable LDL: less than 100 mg/dL Near Optimal/Above Optimal LDL: 110-129 mg/dL Borderline High LDL: 130-159 mg/dL High LDL: 160-189 mg/dL Very High LDL: greater than or equal to 190 mg/dL HDL 35 L >40 mg/dL Desirable HDL: greater than 40 mg/dL Note: This HDL assay may give artificially low results in patients with liver disease. Alk Phos 85 39-117 U/L Coding Level of Care Code New Pt Level 4 (26505) Complex EM visit Add On G2211 Diagnoses Atrial fibrillation I48.91 Lymphedema associated with obesity I89.0; E66.9 Uncontrolled hypertension I10 Anemia, unspecified type D64.9 Anemia type: unspecified type Morbid obesity with BMI of 50.0-59.9, adult E66.01; Z68.43 Ileitis, terminal K50.00 History of adenomatous polyp of colon Z86.0101 Additional Codes XENA-7 Assessment Billing - XENA-7 Assessment Tool: XENA-7 Assessment 14742 ([id number]) Assessment & Plan Assessment & Plan (1) Atrial fibrillation: Code(s): I48.91 - Unspecified atrial fibrillation Category: Medical Plan: Started on apixaban 5 mg 1 tablet twice a day on recent admission, will refer to Cardiology for follow-up (2) Lymphedema associated with obesity: Code(s): I89.0 - Lymphedema, not elsewhere classified; E66.9 - Obesity, unspecified Category: Medical Plan: Patient states that he has chronic lymphedema, previously was being seen at the lymphedema Clinic in [facility] but has been lost to follow-up. Referral back to lymphedema Clinic in [facility] ordered, for further evaluation and management. Prescription refill sent for ammonium lactate, to use as directed. (3) Uncontrolled hypertension: Code(s): I10 - Essential (primary) hypertension Category: Medical Plan: Blood pressure today is within normal limits, will continue on amlodipine 5 mg once a day (4) Anemia: Code(s): D64.9 - Anemia, unspecified Category: Medical Qualifiers: Anemia type: unspecified type Qualified Code(s): D64.9 - Anemia, unspecified Plan: Recent colonoscopy done 12/24/[address] Carbajal showed presence of tubular adenoma which was removed, terminal ileitis and internal hemorrhoids which could explain his anemia. Patient was placed on ferrous sulfate 325 mg to take 1 tablet once a day ideally taken with orange juice or vitamin-C tablets for better absorption of iron. Patient cautioned that medication may cause constipation, advised to start taking sctw-fga-twrixce docusate sodium 100 mg 1 capsule twice a day as needed for prevention of constipation. Continue with psyllium husk (5) Morbid obesity with BMI of 50.0-59.9, adult: Code(s): E66.01 - Morbid (severe) obesity due to excess calories; Z68.43 - Body mass index [BMI] 50.0-59.9, adult Category: Medical Plan: Patient enquiring whether he can be a candidate for Wegovy or Mounjaro. Recommended referral to a weight loss clinic for further evaluation to see which loss treatment is the best option for him (6) Ileitis, terminal: Comment: Seen on colonoscopy 12/24/[address] Carbajal Code(s): K50.00 - Crohn's disease of small intestine without complications Category: Medical Plan: Recent colonoscopy done 12/24/[address] Carbajal showed presence of tubular adenoma which was removed, terminal ileitis and internal hemorrhoids which could explain his anemia. Patient was placed on ferrous sulfate 325 mg to take 1 tablet once a day ideally taken with orange juice or vitamin-C tablets for better absorption of iron. Patient cautioned that medication may cause constipation, advised to start taking qpvw-iqx-rgaygsh docusate sodium 100 mg 1 capsule twice a day as needed for prevention of constipation. Continue with psyllium husk (7) History of adenomatous polyp of colon: Comment: Seen on colonoscopy 12/24/[address] Carbajal Code(s): Z86.0101 - Personal history of adenomatous and serrated colon polyps Category: Medical Plan: Recently removed on colonoscopy done 12/24/2023. Repeat colonoscopy due again in 2028 Orders: Orders Lipid Panel 02/23/24 D64.9 - Anemia, unspecified, I10 - Essential (primary) hypertension, I48.91 - Unspecified atrial fibrillation IRON PROFILE 02/23/24 D64.9 - Anemia, unspecified, I10 - Essential (primary) hypertension, I48.91 - Unspecified atrial fibrillation Alanine Aminotransferase 02/23/24 D64.9 - Anemia, unspecified, I10 - Essential (primary) hypertension, I48.91 - Unspecified atrial fibrillation Aspartate Amino Transferase 02/23/24 D64.9 - Anemia, unspecified, I10 - Essential (primary) hypertension, I48.91 - Unspecified atrial fibrillation Basic Metabolic Panel Fasting 02/23/24 D64.9 - Anemia, unspecified, I10 - Essential (primary) hypertension, I48.91 - Unspecified atrial fibrillation Complete Blood Count Auto Diff 02/23/24 D64.9 - Anemia, unspecified, I10 - Essential (primary) hypertension, I48.91 - Unspecified atrial fibrillation Referrals Lymphedema Clinic Referral E66.9 - Obesity, unspecified, I89.0 - Lymphedema, not elsewhere classified Cardiology Referral I48.91 - Unspecified atrial fibrillation Medical Weight Management Referral E66.01 - Morbid (severe) obesity due to excess calories, E66.9 - Obesity, unspecified, I10 - Essential (primary) hypertension, I89.0 - Lymphedema, not elsewhere classified, Z68.43 - Body mass index [BMI] 50.0-59.9, adult Medications: New ferrous sulfate (Iron (ferrous sulfate)) 325 mg PO DAILY 90 tabs 1RF docusate sodium 100 mg PO BID 3 months 180 caps 1RF Refilled ammonium lactate 12% 1 appl See Protocol topical BID 400 grams 5RF
[2024-01-08 12:38] VITALS: BP 122/78; PULSE 85; O2SAT 97; BMI 66.6
== END 2024-01-08 13:33 | disposition home or self-care (01) ==
PROVIDERS: Visit Provider Internal Medicine
DX: I48.91 Unspecified atrial fibrillation (principal); E66.813 Obesity, class 3; Z68.43 Body mass index [BMI] 50.0-59.9, adult; K50.00 Crohn's disease of small intestine without complications; I89.0 Lymphedema, not elsewhere classified; I10 Essential (primary) hypertension; D64.9 Anemia, unspecified; Z86.0101 Personal history of adenomatous and serrated colon polyps

== ENCOUNTER → 2024-01-08 12:08 | Outpatient (BNVA) | payer OTHER, SELFPAY | PROVIDERS: Visit Provider Internal Medicine | DX: I48.91 Unspecified atrial fibrillation (principal); I89.0 Lymphedema, not elsewhere classified; I10 Essential (primary) hypertension; D64.9 Anemia, unspecified; E66.01 Morbid (severe) obesity due to excess calories; Z68.43 Body mass index [BMI] 50.0-59.9, adult; K50.00 Crohn's disease of small intestine without complications; Z86.0101 Personal history of adenomatous and serrated colon polyps; Z71.3 Dietary counseling and surveillance | CPT/HCPCS: 96127; 99202 ==

== ENCOUNTER 2024-01-14 11:01 | Outpatient (REF) | payer OTHER, SELFPAY ==
[2024-01-14 13:34] LABS: Hematocrit 35.6 % (42.0-52.0); Hemoglobin 10.7 g/dl (14.0-18.0)
== END 2024-01-14 11:02 | disposition home or self-care (01) ==
LOC: HO.HMGCLDS 11:01
PROVIDERS: PCP Internal Medicine; Visit Provider Internal Medicine
DX: K62.5 Hemorrhage of anus and rectum (principal)
CPT/HCPCS: 36415; 85014; 85018

== ENCOUNTER 2024-05-01 10:41 | Outpatient (REF) | payer OTHER, SELFPAY ==
[2024-05-01 13:38] LABS: MANUAL DIFF FLAG NO
[2024-05-01 13:51] LABS: Basophils Percent Auto 0.7 % (0-2); Eosinophils Absolute Auto 0.2 X10*3/uL (0.0-0.4); Eosinophils Percent Auto 2.5 % (0-4); Hematocrit 41.5 % (42.0-52.0); Hemoglobin 12.6 g/dl (14.0-18.0); Imm Gran Abs Auto 0.03 X10*3/uL (0.00-0.03); Imm Gran Pct Auto 0.5 % (0.0-0.4); Lymphocytes Absolute Auto 0.8 X10*3/uL (1.2-4.9); Lymphocytes Percent Auto 13.9 % (20-40); Mean Corpuscular HGB Conc 30.4 g/dl (31.0-36.0); Mean Corpuscular Hemoglobin 23.6 pg (27.0-33.0); Mean Corpuscular Volume 77.6 fL (80.0-98.0); Mean Platelet Volume 9.8 fL (9.4-12.4); Monocytes Absolute Auto 0.5 X10*3/uL (0.1-1.2); Monocytes Percent Auto 8.3 % (2-11); Neutrophils Absolute Auto 4.4 x10*3/uL (2.0-8.3); Neutrophils Percent Auto 74.1 % (45-73); Platelet Count 163 X10*3/uL (160-400); Red Blood Count 5.35 X10*6/uL (4.60-5.80); Red Cell Distribution Width 18.6 % (11.0-16.0); White Blood Count 5.9 X10*3/uL (4.8-10.8)
[2024-05-01 13:59] LABS: Alanine Aminotransferase 26 U/L (0-40); Anion Gap 13 (12-20); Aspartate Amino Transferase 32 U/L (5-37); Blood Urea Nitrogen 26 mg/dL (9-16); Calcium 9.5 mg/dL (8.4-10.2); Carbon Dioxide 29 mmol/L (22-29); Chloride 105 mmol/L (96-108); Cholesterol 133 mg/dL (<200); Estimated Glomerular Filt Rate 55; Glucose Fasting 109 mg/dL (60-99); HDL Cholesterol 43 mg/dL (>40); Iron 37 mcg/dL (45-160); LDL Cholesterol Calculated 74 mg/dL (<100); Percent Iron Saturation 13 % (15-50); Potassium 4.3 mmol/L (3.3-5.1); Sodium 143 mmol/L (135-145); Total Iron Binding Capacity 291 mcg/dL (228-428); Triglycerides 81 mg/dL (<150); Unsaturated Iron Binding 254 ug/dL
== END 2024-05-01 10:42 | disposition home or self-care (01) ==
LOC: HO.HMGCLDS 10:41
PROVIDERS: PCP Internal Medicine; Visit Provider Internal Medicine
DX: I48.91 Unspecified atrial fibrillation (principal); I10 Essential (primary) hypertension; D64.9 Anemia, unspecified
CPT/HCPCS: 36415; 80048; 80061; 83540; 84450; 84460; 85025

== ENCOUNTER 2024-07-03 10:34 | Outpatient (AMB) | payer OTHER, SELFPAY ==
--- NOTE | 2024-07-03 10:30 | MHC.PC.OV ---
Intake Visit Reasons: [phone] (Call) lab results Allergies No Known Allergies Allergy (Verified 07/03/24 11:06) Medication List - Last Reconciled 07/03/24 by Karoline Saez MD ammonium lactate 12% 1 appl See Protocol topical BID psyllium husk 0.4 grams PO BEDTIME Tobacco use date assessed: 07/03/24 Dental Screening Dental Screen Date: 07/03/24 Did you have a dental visit in the last 12 months?: No Did you have a dental problem in the last 6 months where you did not have access to dental care?: No Was dental information given to patient?: No HPI [phone] (Call) lab results HPI Details 58-year-old male with history of hypertension, atrial fibrillation anemia, here today for a telehealth visit, accompanied by sister. He was placed on Eliquis initially and has been taking amlodipine but sister states that he ran out of his medications and was not able to get it refilled. He also was supposed to sees Cardiology but unable to make it due to transportation issues, with the appointment rescheduled for August 2024. He has been seen at the lymphedema Clinic in [facility], and needs prescription for pneumatic compression for both legs, which has already been sent 2 days ago. He said he has been feeling well, with no episodes of chest pain, no headache or shortness of breath, no lightheadedness. [facility] Medical History (Updated 07/04/24 @ 02:40 by Karoline Saez MD) Essential hypertension Ileitis, terminal History of adenomatous polyp of colon Morbid obesity with BMI of 50.0-59.9, adult History of GI bleed Anemia Lymphedema associated with obesity Atrial fibrillation Atrial fibrillation by electrocardiogram Morbid obesity Surgical History Hx of colonoscopy S/P hernia surgery S/P appendectomy Family History Mother No problems noted. Father No problems noted. Social History Household Members: Other Household Members Other:: sister Housing: House Are you a primary respiratory care faculty to a significant other at home: No Do you presently have visiting nurse or other home services: No Alcohol intake: never Patient Tobacco Use Status: Never used Tobacco e-Cigarette/Vaping Use: Never Used Second Hand Smoke Exposure: No service: No Current occupational status: retired Cognitive needs: No Hearing needs: No Vision needs: Yes (Reading Glasses) Questionnaire PHQ-9 Over the last 2 weeks, how often have you been bothered by any of the following problems? 1. Little interest or pleasure in doing things: not at all 2. Feeling down, depressed, or hopeless: not at all 3. Trouble falling or staying asleep, or sleeping too much: not at all 4. Feeling tired or having little energy: not at all 5. Poor appetite or overeating: not at all 6. Feeling bad about yourself - or that you are a failure or have let yourself or your family down: not at all 7. Trouble concentrating on things, such as reading the newspaper or watching television: not at all 8. Moving or speaking so slowly that other people could have noticed. Or the opposite - being so fidgety or restless that you have been moving around a lot more than usual: not at all 9. Thoughts that you would be better off or of hurting yourself in some way: not at all Total score: 0 Depression Screening Interpretation: Negative Depression Screening Done: Yes 77775 - PHQ-9 Billing: Yes Source: Developed by Drs. Francis Ryan, Sonya Armas, Yakov Mena and colleagues, with an educational carmen from [employer]. Thrive Questionnaire Date Thrive assessed: 07/03/24 I am a: Patient What is your living situation today?: I have a steady place to live Within the past 12 months, did the food you bought not last and you didn't have the money to get more?: Never true Within the past 12 months, did you worry whether your food would run out before you got money to buy more?: Never true Do you have trouble paying for medicines?: No Do you have trouble getting transportation to medical appointments?: Yes Do you have trouble paying your heating and electricity bill?: No Do you have trouble taking care of your child, family member or friend?: No Do you have trouble with day-to-day activities such as bathing, preparing meals, shopping, managing finances, etc.?: No Are you currently unemployed and looking for a job?: No Are you interested in more education?: No THRIVE Score: 1 AUDIT C Alcohol Use Questionnaire (AUDIT-C) 1. How often do you have a drink containing alcohol?: Never Total Score: 0 XENA-7 AMB Questionnaire XENA-7 Date XENA - 7 assessed: 01/29/24 Feeling nervous, anxious, or on edge: 0 = Not at all Not being able to stop or control worryin = Not at all Worrying too much about different things: 0 = Not at all Trouble relaxin = Not at all Being so restless that it is hard to sit still: 0 = Not at all Becoming easily annoyed or irritable: 0 = Not at all Feeling afraid as if something awful might happen: 0 = Not at all Total XENA-7 score (0-4 normal; 5-9 mild; 10-14 moderate; 15-21 severe): 0 Source: Developed by Drs. Francis Ryna, Sonya Armas, Yakov Mena and colleagues, with an educational carmen from [employer]. Review of Systems Const Denies body aches, Denies fever(s), Denies headache(s) and Denies weakness Eyes Denies change in vision, Denies eye discharge and Denies itchy eyes ENT Denies dizziness, Denies headache(s), Denies nasal congestion, Denies nasal discharge and Denies sore throat Card Denies chest pain, Denies lightheadedness, Denies palpitations and Denies dyspnea Resp Denies chest congestion, Denies cough, Denies dyspnea and Denies wheezing GI Denies abdominal pain and Denies heartburn Denies hematuria, Denies difficulty urinating, Denies dysuria, Denies urinary frequency and Denies urinary urgency Musc Reports arthralgias and Reports stiffness Skin/Breast Reports dry skin, Reports nail changes and Reports rash Neuro Denies dizziness, Denies headache(s) and Denies weakness Psych Reports no additional complaints Endo Denies polydipsia, Denies polyuria and Denies palpitations Robin/Lymph Denies easy bruising Aller/Immun Denies itchy eyes, Denies seasonal rhinorrhea and Denies wheezing Physical exam (Primary Care) Tobacco/Smoking Status: Tobacco use Status Tobacco use date assessed 07/03/24 07/03/24 10:31 Patient Tobacco Use Status Never used Tobacco 07/03/24 10:31 e-Cigarette/Vaping Use Never Used 07/03/24 10:31 PHQ-9: PHQ-9 Score PHQ-9: Total score 0 07/03/24 11:06 Depression Screening Interpretation: Negative Thrive Assessment: Date of Thrive Assessment Date Thrive assessed 07/03/24 07/03/24 10:34 Results Reviewed Results Reviewed: lola: Jey Hicks Age/Sex: 58/M : 1965 Unit#: [id number] Attend Dr: Karoline Saez MD Re05/01/24 Status: DEP REF Location: [facility] Disch: SPEC : [id number] ALICIA: 05/01/24 STATUS: COMP REQ : [id number] RECD: 05/01/[address]: Karoline Saez MD COMP: 05/01/24 ENTERED: 05/01/24 [facility] DR: ORDERED: CBC Auto Diff Test Result Flag Reference WBC 5.9 4.8-10.8 X10*3/uL RBC 5.35 # 4.60-5.80 X10*6/uL HGB 12.6 L 14.0-18.0 g/dl HCT 41.5 L 42.0-52.0 % MCV 77.6 L 80.0-98.0 fL MCH 23.6 L 27.0-33.0 pg MCHC 30.4 L 31.0-36.0 g/dl RDW 18.6 H 11.0-16.0 % PLT 163 160-400 X10*3/uL MPV 9.8 9.4-12.4 fL Neut Pct Auto 74.1 H 45-73 % ImGran Pct Auto 0.5 H 0.0-0.4 % Lymp Pct Auto 13.9 L 20-40 % Galax Pct Auto 8.3 2-11 % Eos Pct Auto 2.5 0-4 % Baso Pct Auto 0.7 0-2 % NRBC Pct Auto 0.0 0.0-0.2 /100WBC ANC Neut Abs # 4.4 2.0-8.3 x10*3/uL ImGran Abs Auto 0.03 0.00-0.03 X10*3/uL Lymph Abs Auto 0.8 L 1.2-4.9 X10*3/uL Galax Abs Auto 0.5 0.1-1.2 X10*3/uL Eos Abs Auto 0.2 0.0-0.4 X10*3/uL Baso Abs Auto 0.0 0.0-0.2 X10*3/uL NRBC Abs Auto 0.000 0.0-0.012 X10*3/uL Name: Jey Hicks Age/Sex: 58/M : 1965 Unit#: [id number] Attend Dr: Karoline Saez MD Re05/01/24 Status: DEP REF Location: [facility] Disch: SPEC : [id number] ALICIA: 05/01/24 STATUS: COMP REQ : [id number] RECD: 05/01/[address]: Karoline Saez MD COMP: 05/01/24 ENTERED: 05/01/[address]: ORDERED: Met Prof Fast, IRON PROF, AST, ALT, Lipid Panel Test Result Flag Reference Sodium 143 135-145 mmol/L Potassium 4.3 3.3-5.1 mmol/L CL 105 96-108 mmol/L CO2 29 22-29 mmol/L Gap 13 12-20 BUN 26 H 9-16 mg/dL Creat 1.33 0.5-1.4 mg/dL eGFR 55 Chronic Kidney Disease: Estimated GFR < 60 mL/min/1.73m2 Severe Kidney Disease: Estimated GFR < 15 mL/min/1.73m2 FBS 109 H 60-99 mg/dL A fasting glucose from 100-125 mg/dl is considered impaired (pre-diabetes). CA 9.5 8.4-10.2 mg/dL Iron 37 L 45-160 mcg/dL TIBC 291 228-428 mcg/dL Saturation 13 L 15-50 % UIBC 254 ug/dL AST (GOT) 32 5-37 U/L ALT (GPT) 26 0-40 U/L Triglyceride 81 <150 mg/dL Desirable Triglyceride: less than 150 mg/dL Borderline High Triglyceride 150-199 mg/dL High Triglyceride: 200-499 mg/dL Very High Triglyceride: greater than or equal to 5OO mg/dL Cholesterol 133 <200 mg/dL Desirable Cholesterol: less than 200 mg/dL Borderline High Cholesterol: 200-239 mg/dL High Cholesterol: greater than 239 mg/dL LDL Calculated 74 <100 mg/dL Desirable LDL: less than 100 mg/dL Near Optimal/Above Optimal LDL: 110-129 mg/dL Borderline High LDL: 130-159 mg/dL High LDL: 160-189 mg/dL Very High LDL: greater than or equal to 190 mg/dL HDL 43 >40 mg/dL Desirable HDL: greater than 40 mg/dL Note: This HDL assay may give artificially low results in patients with liver disease. Coding Level of Care Code Tele Est Pt Level 4 (44512) Complex EM visit Add On G2211 Diagnoses Atrial fibrillation I48.91 Lymphedema associated with obesity I89.0; E66.9 Anemia, unspecified type D64.9 Anemia type: unspecified type Essential hypertension I10 Additional Codes PHQ-9 - 99894 - PHQ-9 Billing: Yes ([id number]) Assessment & Plan Assessment & Plan (1) Atrial fibrillation: Code(s): I48.91 - Unspecified atrial fibrillation Category: Medical Plan: Patient has been out of liquids now for at least a month. Refill prescription for Eliquis 5 mg to take 1 tablet twice a day. Patient has an appointment fo cardiology visit on September 09, 2024 , fasting labs ordered today (2) Lymphedema associated with obesity: Code(s): I89.0 - Lymphedema, not elsewhere classified; E66.9 - Obesity, unspecified Category: Medical Plan: Currently referred to [facility] l[facility] and prescription for compression socks already faxed back to the (3) Anemia: Code(s): D64.9 - Anemia, unspecified Category: Medical Qualifiers: Anemia type: unspecified type Qualified Code(s): D64.9 - Anemia, unspecified Plan: Reviewed latest CBC results which showed improvement in his hemoglobin/ hematocrit,, now up to 12.6 and 41.5 respectively. His serum iron and saturation however is still low. Continue with ferrous sulfate 325 mg to take once a day, preferably with vitamin-C or orange juice for better absorption, do not take it together with the other medicines at least take it an hour before 2 hours after taking any medication. Prescription was also sent for docusate calcium to take only as needed for episodes of constipation while taking iron pills (4) Essential hypertension: Code(s): I10 - Essential (primary) hypertension Category: Medical Plan: Last blood pressure was within normal limits, refill prescription sent for amlodipine 5 mg taken once a day. Reinforced importance of following a low-salt diet and getting regular exercise. Orders: Orders Lipid Panel 07/03/24 D64.9 - Anemia, unspecified, E66.01 - Morbid (severe) obesity due to excess calories, E66.9 - Obesity, unspecified, I10 - Essential (primary) hypertension, I48.91 - Unspecified atrial fibrillation, I89.0 - Lymphedema, not elsewhere classified, K50.00 - Crohn's disease of small intestine without complications, Z68.43 - Body mass index [BMI] 50.0-59.9, adult, Z86.0101 - Personal history of adenomatous and serrated colon polyps Comprehensive [place]. Panel Fast 07/03/24 D64.9 - Anemia, unspecified, E66.01 - Morbid (severe) obesity due to excess calories, E66.9 - Obesity, unspecified, I10 - Essential (primary) hypertension, I48.91 - Unspecified atrial fibrillation, I89.0 - Lymphedema, not elsewhere classified, K50.00 - Crohn's disease of small intestine without complications, Z68.43 - Body mass index [BMI] 50.0-59.9, adult, Z86.0101 - Personal history of adenomatous and serrated colon polyps Complete Blood Count Auto Diff 07/03/24 D64.9 - Anemia, unspecified, E66.01 - Morbid (severe) obesity due to excess calories, E66.9 - Obesity, unspecified, I10 - Essential (primary) hypertension, I48.91 - Unspecified atrial fibrillation, I89.0 - Lymphedema, not elsewhere classified, K50.00 - Crohn's disease of small intestine without complications, Z68.43 - Body mass index [BMI] 50.0-59.9, adult, Z86.0101 - Personal history of adenomatous and serrated colon polyps IRON PROFILE 07/03/24 D64.9 - Anemia, unspecified, E66.01 - Morbid (severe) obesity due to excess calories, E66.9 - Obesity, unspecified, I10 - Essential (primary) hypertension, I48.91 - Unspecified atrial fibrillation, I89.0 - Lymphedema, not elsewhere classified, K50.00 - Crohn's disease of small intestine without complications, Z68.43 - Body mass index [BMI] 50.0-59.9, adult, Z86.0101 - Personal history of adenomatous and serrated colon polyps Vitamin D 25-OH Total 07/03/24 D64.9 - Anemia, unspecified, E66.01 - Morbid (severe) obesity due to excess calories, E66.9 - Obesity, unspecified, I10 - Essential (primary) hypertension, I48.91 - Unspecified atrial fibrillation, I89.0 - Lymphedema, not elsewhere classified, K50.00 - Crohn's disease of small intestine without complications, Z68.43 - Body mass index [BMI] 50.0-59.9, adult, Z86.0101 - Personal history of adenomatous and serrated colon polyps Hemoglobin A1c 07/03/24 D64.9 - Anemia, unspecified, E66.01 - Morbid (severe) obesity due to excess calories, E66.9 - Obesity, unspecified, I10 - Essential (primary) hypertension, I48.91 - Unspecified atrial fibrillation, I89.0 - Lymphedema, not elsewhere classified, K50.00 - Crohn's disease of small intestine without complications, Z68.43 - Body mass index [BMI] 50.0-59.9, adult, Z86.0101 - Personal history of adenomatous and serrated colon polyps PSA,Total (Free>4and<10) 07/03/24 D64.9 - Anemia, unspecified, Z12.5 - Encounter for screening for malignant neoplasm of prostate Medications: Refilled apixaban (Eliquis) 5 mg PO BID 180 tabs 0RF ferrous sulfate (Iron (ferrous sulfate)) 325 mg PO DAILY 90 tabs 1RF docusate sodium 100 mg PO BID 3 months 180 caps 1RF amlodipine 5 mg See Protocol PO DAILY 90 tabs 0RF
== END 2024-07-03 12:50 | disposition home or self-care (01) ==
LOC: HO.HMCC 10:34
PROVIDERS: PCP Internal Medicine; Visit Provider Internal Medicine
DX: I48.91 Unspecified atrial fibrillation (principal); I89.0 Lymphedema, not elsewhere classified; E66.9 Obesity, unspecified; D64.9 Anemia, unspecified; I10 Essential (primary) hypertension

== ENCOUNTER → 2024-07-03 10:34 | Outpatient (BNVA) | payer OTHER, SELFPAY | PROVIDERS: PCP Internal Medicine; Visit Provider Internal Medicine | DX: I48.91 Unspecified atrial fibrillation (principal); I89.0 Lymphedema, not elsewhere classified; E66.9 Obesity, unspecified; D64.9 Anemia, unspecified; I10 Essential (primary) hypertension | CPT/HCPCS: 96127 ==

== ENCOUNTER 2024-08-05 11:39 | Outpatient (REF) | payer OTHER, SELFPAY ==
--- OUTSIDE RECORDS SUMMARY | 2024-08-05 12:34 | XMS_ITS | Continuity of Care Document ---
Author Organization [facility] Address [address] [place] [id number] Care Team Providers Care Ripsaw Operator Name Role Phone Se DANIELS, Karoline Polo Primary Care Physician Encounter [facility] Date(s): 06/30/24 - 07/30/[address] [id number] Attending Physician: Marty Pradhan Admitting Physician: Marty Pradhan Referring Physician: Marty Pradhan Encounter Type: Triage Allergies, Adverse Reactions, Alerts No Known Allergies Immunizations Given and Recorded Vaccine Date Status Refusal Reason pneumococcal 23-valent vaccine 12/03/14 Given Problem List Condition Confirmation Course Effective Dates Status H ealth Status Informant Cholecystitis, acute with cholelithiasis Confirmed Active [facility] Confirmed Active Social History Social History Type Response Smoking Status Never smoker entered on: 12/29/14 Sex Sex Representation Male (finding) Patient Care team information Care Team Personnel Name: Karoline Saez MD Position: Reference Physician Member Role: PCP Address: [address] [place], [place] [address] Telecom: Care Team Related Persons Name: LAYO TAO Insurance Providers Guarantor name: NA Health Plan Information #: 1 Payer: [employer] Member Number: NA Policy Number: NA Group Number: NA
[2024-08-05 13:45] LABS: MANUAL DIFF FLAG NO
[2024-08-05 13:58] LABS: Basophils Percent Auto 0.5 % (0-2); Eosinophils Absolute Auto 0.2 X10*3/uL (0.0-0.4); Eosinophils Percent Auto 3.2 % (0-4); Hematocrit 41.2 % (42.0-52.0); Imm Gran Abs Auto 0.04 X10*3/uL (0.00-0.03); Imm Gran Pct Auto 0.7 % (0.0-0.4); Lymphocytes Absolute Auto 0.7 X10*3/uL (1.2-4.9); Lymphocytes Percent Auto 13.1 % (20-40); Mean Corpuscular HGB Conc 31.6 g/dl (31.0-36.0); Mean Corpuscular Volume 79.2 fL (80.0-98.0); Mean Platelet Volume 9.8 fL (9.4-12.4); Monocytes Absolute Auto 0.4 X10*3/uL (0.1-1.2); Monocytes Percent Auto 7.3 % (2-11); Neutrophils Absolute Auto 4.2 x10*3/uL (2.0-8.3); Neutrophils Percent Auto 75.2 % (45-73); Platelet Count 177 X10*3/uL (160-400); White Blood Count 5.6 X10*3/uL (4.8-10.8)
[2024-08-05 14:09] LABS: Estimated Average Glucose 105 mg/dL; Hemoglobin A1C 119.2064 umol/L; Hemoglobin A1c % 5.3 % (<6.0); Total Hemoglobin (HGBA1C) 3416.5727 umol/L
[2024-08-05 14:26] LABS: PSA,Total (Free>4and<10) 0.49 ng/mL (0.00-4.00)
[2024-08-05 14:43] LABS: Alanine Aminotransferase 29 U/L (0-40); Albumin Level 3.9 g/dL (3.5-5.0); Alkaline Phosphatase 155 U/L (39-117); Anion Gap 14 (12-20); Aspartate Amino Transferase 30 U/L (5-37); Bilirubin Total 2.2 mg/dL (0.0-1.0); Blood Urea Nitrogen 28 mg/dL (9-16); Calcium 9.5 mg/dL (8.4-10.2); Carbon Dioxide 27 mmol/L (22-29); Chloride 104 mmol/L (96-108); Cholesterol 146 mg/dL (<200); Estimated Glomerular Filt Rate 56; Glucose Fasting 98 mg/dL (60-99); HDL Cholesterol 52 mg/dL (>40); Iron 52 mcg/dL (45-160); LDL Cholesterol Calculated 79 mg/dL (<100); Percent Iron Saturation 18 % (15-50); Potassium 4.3 mmol/L (3.3-5.1); Sodium 141 mmol/L (135-145); Total Iron Binding Capacity 293 mcg/dL (228-428); Total Protein 8.2 g/dL (6.5-8.0); Triglycerides 77 mg/dL (<150); Unsaturated Iron Binding 241 ug/dL; Vitamin D 25-OH Total 8.4 ng/mL (>30)
== END 2024-08-05 11:40 | disposition home or self-care (01) ==
LOC: HO.HMGCLDS 11:39
PROVIDERS: PCP Internal Medicine; Visit Provider Internal Medicine
DX: K50.00 Crohn's disease of small intestine without complications (principal); Z86.0101 Personal history of adenomatous and serrated colon polyps; E66.01 Morbid (severe) obesity due to excess calories; Z68.43 Body mass index [BMI] 50.0-59.9, adult; I89.0 Lymphedema, not elsewhere classified; E66.9 Obesity, unspecified; D64.9 Anemia, unspecified; I48.91 Unspecified atrial fibrillation; I10 Essential (primary) hypertension; Z12.5 Encounter for screening for malignant neoplasm of prostate
CPT/HCPCS: 36415; 80053; 80061; 82306; 83036; 83540; 84153; 85025

== ENCOUNTER 2024-08-25 09:46 | Outpatient (AMB) | payer OTHER, SELFPAY ==
--- NOTE | 2024-08-25 09:42 | A.OFFPC_ITS ---
Intake Visit Reasons: f/u labs w/ sister ([phone]) Intake Note: Pt is having a telehealth visit to discuss recent lab results Allergies No Known Allergies Allergy (Verified 08/25/24 09:51) Medication List - Last Reconciled 08/25/24 by Karoline Saez MD amlodipine 5 mg See Protocol PO DAILY ammonium lactate 12% 1 appl See Protocol topical BID apixaban (Eliquis) 5 mg PO BID [Compression Garments Bilateral reduction kits, one pair, 2 extension kits and 2 knee spine] docusate sodium 100 mg PO BID 3 months ferrous sulfate (Iron (ferrous sulfate)) 325 mg PO DAILY psyllium husk (Metamucil) 1 tsp PO DAILY PRN Tobacco use date assessed: 08/25/24 Dental Screening Dental Screen Date: 08/25/24 Did you have a dental visit in the last 12 months?: No Did you have a dental problem in the last 6 months where you did not have access to dental care?: No Was dental information given to patient?: No HPI f/u labs w/ sister ([phone]) HPI Details 58-year-old male with history of hyperte nsion, atrial fibrillation anemia, here today for a telehealth visit, accompanied by sister. He is currently taking amlodipine for blood pressure control and is on Eliquis 5 mg 1 tablet twice a day. Denies any unusual bleeding from medication. Has appointment already scheduled to see Dr. Guzman on September 09 2024 He has lymphedema associated with obesity, now wearing compression garments which has been helping. Interested in going on a weight loss medication. Had recent fasting labs done which showed anemia improving, currently taking iron supplements, His electrolytes are within normal limits, renal function slightly decreased at 56 GFR, liver enzymes are within normal limits except for an elevated total bilirubin at 2.2. Patient does not complain of any abdominal pain, no jaundice, nausea vomiting. ? Gilbert's disease. Fasting lipids are within normal limits. Vitamin-D level however is severely deficient at 8.4 ng/mL. [facility] Medical History Essential hypertension Ileitis, terminal History of adenomatous polyp of colon Morbid obesity with BMI of 50.0-59.9, adult History of GI bleed Anemia Lymphedema associated with obesity Atrial fibrillation Atrial fibrillation by electrocardiogram Morbid obesity Surgical History Hx of colonoscopy S/P hernia surgery S/P appendectomy Family History Mother No problems noted. Father No problems noted. Social History Household Members: Other Household Members Other:: sister Housing: House Are you a primary ambulatory care coordinator to a significant other at home: No Do you presently have visiting nurse or other home services: No Alcohol intake: never Patient Tobacco Use Status: Never used Tobacco e-Cigarette/Vaping Use: Never Used Second Hand Smoke Exposure: No service: No Current occupational status: retired Cognitive needs: No Hearing needs: No Vision needs: Yes (Reading Glasses) Questionnaire Thrive Questionnaire Date Thrive assessed: 07/03/24 XENA-7 AMB Questionnaire XENA-7 Date XENA - 7 assessed: 01/29/24 Source: Developed by Drs. Francis Ryan, Sonya Armas, Yakov Mena and colleagues, with an educational carmen from [employer]. Review of Systems Const Denies body aches, Denies fever(s), Denies headache(s) and Denies weakness Eyes Denies change in vision ENT Denies dizziness, Denies headache(s), Denies nasal congestion and Denies nasal discharge Card Denies chest pain, Denies lightheadedness, Denies palpitations and Denies dyspnea Resp Denies chest congestion, Denies cough, Denies dyspnea and Denies wheezing GI Denies abdominal pain and Denies heartburn Denies hematuria, Denies difficulty urinating, Denies dysuria, Denies urinary frequency and Denies urinary urgency Musc Reports arthralgias and Reports stiffness Skin/Breast Reports dry skin, Reports nail changes and Reports rash Neuro Denies dizziness, Denies headache(s) and Denies weakness Psych Reports no additional complaints Endo Denies polydipsia, Denies polyuria and Denies palpitations Robin/Lymph Denies easy bruising Aller/Immun Denies seasonal rhinorrhea and Denies wheezing Physical exam (Primary Care) Tobacco/Smoking Status: Tobacco use Status Tobacco use date assessed 08/25/24 08/25/24 09:45 Patient Tobacco Use Status Never used Tobacco 08/25/24 09:45 e-Cigarette/Vaping Use Never Used 08/25/24 09:45 Thrive Assessment: Date of Thrive Assessment Date Thrive assessed 07/03/24 08/25/24 09:45 Telehealth Telehealth Telehealth Platform: Design Clinicals Location of provider rendering services: practice address Location of patient: address on file Patient Identification confirmed using: Name, : Yes Telehealth method: video Patient verbally consented to treatment: Yes Patient verbally consented to billing insurance company: Yes Patient informed of any privacy concerns related to visit: Yes Minutes spent on Phone/Video with Pt.: 25 Results Reviewed Results Reviewed: Name: Jey Hicks Age/Sex: 58/M : 1965 Unit#: [id number] Attend Dr: Karoline Saez MD Re08/05/24 Status: DEP REF Location: [facility] Disch: SPEC : [id number] ALICIA: 08/05/24 STATUS: COMP REQ : [id number] RECD: 08/05/[address]: Karoline Saez MD COMP: 08/05/24 ENTERED: 08/05/[address]: ORDERED: CBC Auto Diff Test Result Flag Reference WBC 5.6 4.8-10.8 X10*3/uL RBC 5.20 4.60-5.80 X10*6/uL HGB 13.0 L 14.0-18.0 g/dl HCT 41.2 L 42.0-52.0 % MCV 79.2 L 80.0-98.0 fL MCH 25.0 L 27.0-33.0 pg MCHC 31.6 31.0-36.0 g/dl RDW 19.0 H 11.0-16.0 % PLT 177 160-400 X10*3/uL MPV 9.8 9.4-12.4 fL Neut Pct Auto 75.2 H 45-73 % ImGran Pct Auto 0.7 H 0.0-0.4 % Lymp Pct Auto 13.1 L 20-40 % [place] Pct Auto 7.3 2-11 % Eos Pct Auto 3.2 0-4 % Baso Pct Auto 0.5 0-2 % NRBC Pct Auto 0.0 0.0-0.2 /100WBC ANC Neut Abs # 4.2 2.0-8.3 x10*3/uL ImGran Abs Auto 0.04 H 0.00-0.03 X10*3/uL Lymph Abs Auto 0.7 L 1.2-4.9 X10*3/uL [place] Abs Auto 0.4 0.1-1.2 X10*3/uL Eos Abs Auto 0.2 0.0-0.4 X10*3/uL Baso Abs Auto 0.0 0.0-0.2 X10*3/uL NRBC Abs Auto 0.000 0.0-0.012 X10*3/uL Name: Jey Hicks Age/Sex: 58/M : 1965 Unit#: [id number] Attend Dr: Karoline Saez MD Re08/05/24 Status: DEP REF [facility] Disch: SPEC : [id number] ALICIA: 08/05/24-1148 STATUS: COMP REQ : [id number] RECD: 08/05/[address]: Karoline Saez MD COMP: 08/05/24-1442 ENTERED: 08/05/24-[address]: ORDERED: CMP Fast, IRON PROF, Lipid Panel, Vitamin D 25-OH Test Result Flag Reference Sodium 141 135-145 mmol/L Potassium 4.3 3.3-5.1 mmol/L CL 104 96-108 mmol/L CO2 27 22-29 mmol/L Gap 14 12-20 BUN 28 H 9-16 mg/dL Creat 1.32 0.5-1.4 mg/dL eGFR 56 Chronic Kidney Disease: Estimated GFR < 60 mL/min/1.73m2 Severe Kidney Disease: Estimated GFR < 15 mL/min/1.73m2 FBS 98 60-99 mg/dL CA 9.5 8.4-10.2 mg/dL Iron 52 45-160 mcg/dL TIBC 293 228-428 mcg/dL Saturation 18 15-50 % UIBC 241 ug/dL Total Bili 2.2 H 0.0-1.0 mg/dL Slight Icterus. AST (GOT) 30 5-37 U/L ALT (GPT) 29 0-40 U/L Protein, Total 8.2 H 6.5-8.0 g/dL Alb 3.9 3.5-5.0 g/dL Triglyceride 77 <150 mg/dL Desirable Triglyceride: less than 150 mg/dL Borderline High Triglyceride 150-199 mg/dL High Triglyceride: 200-499 mg/dL Very High Triglyceride: greater than or equal to 5OO mg/dL Cholesterol 146 <200 mg/dL Desirable Cholesterol: less than 200 mg/dL Borderline High Cholesterol: 200-239 mg/dL High Cholesterol: greater than 239 mg/dL LDL Calculated 79 <100 mg/dL Desirable LDL: less than 100 mg/dL Near Optimal/Above Optimal LDL: 110-129 mg/dL Borderline High LDL: 130-159 mg/dL High LDL: 160-189 mg/dL Very High LDL: greater than or equal to 190 mg/dL HDL 52 >40 mg/dL Desirable HDL: greater than 40 mg/dL Note: This HDL assay may give artificially low results in patients with liver disease. Alk Phos 155 H 39-117 U/L Vitamin D 25-OH 8.4 L >30 ng/mL Health Based Reference Values* < 20 ng/mL Deficient 20-30 ng/mL Insufficient > 30 ng/mL Sufficient Coding Level of Care Code Tele Est Pt Level 4 (60729) Complex EM visit Add On G2211 Diagnoses Vitamin D deficiency E55.9 Anemia, unspecified type D64.9 Anemia type: unspecified type Atrial fibrillation I48.91 Lymphedema associated with obesity I89.0; E66.9 Assessment & Plan Assessment & Plan (1) Vitamin D deficiency: Code(s): E55.9 - Vitamin D deficiency, unspecified Category: Medical Plan: Prescription sent for cholecalciferol 33407 units per capsule to take once a week for the next 3 months. Once finished taking the prescription, advised to still take [id number]-[id number] vitamin D3 at 2000 units daily (2) Anemia: Code(s): D64.9 - Anemia, unspecified Category: Medical Qualifiers: Anemia type: unspecified type Qualified Code(s): D64.9 - Anemia, unspecified Plan: Latest CBC showed improvement in hemoglobin hematocrit and iron levels are within normal limits. Will continue on ferrous sulfate 325 mg once a day. Continue taking docusate sodium 100 mg 1 tablet twice a day as needed for constipation. (3) Atrial fibrillation: Code(s): I48.91 - Unspecified atrial fibrillation Category: Medical Plan: Currently on Eliquis 5 mg twice a day and amlodipine 5 mg daily. Has an appointment for initial visit with Cardiology 09/09/2024 (4) Lymphedema associated with obesity: Code(s): I89.0 - Lymphedema, not elsewhere classified; E66.9 - Obesity, unspecified Category: Medical Plan: Patient interested in going on GLP 1 agonist medication to help with weight l oss. Advised to call his insurance and ask whether it is covered. Medications: New cholecalciferol (vitamin D3) 1,250 mcg PO QWEEK 3 months 13 caps 0RF E55.9 - Vitamin D deficiency, unspecified
== END 2024-08-25 10:14 | disposition home or self-care (01) ==
LOC: HO.HMCC 09:46
PROVIDERS: PCP Internal Medicine; Visit Provider Internal Medicine
DX: E55.9 Vitamin D deficiency, unspecified (principal); D64.9 Anemia, unspecified; E66.9 Obesity, unspecified; I48.91 Unspecified atrial fibrillation; I89.0 Lymphedema, not elsewhere classified

== ENCOUNTER → 2024-08-25 09:46 | Outpatient (BNVA) | payer OTHER, SELFPAY | PROVIDERS: PCP Internal Medicine; Visit Provider Internal Medicine | DX: Z13.89 Encounter for screening for other disorder (principal) ==

== ENCOUNTER 2024-09-09 10:56 | Outpatient (AMB) | payer OTHER, SELFPAY ==
--- NOTE | 2024-09-09 11:06 | MHC.OFFVIS ---
Vital Signs 09/09/24 11:09 Height 6 ft 2 in Weight 519 lb BMI 66.6 BP 140/74 H Blood Pressure Location Lt radial Position Sitting Pulse 66 Pulse Source Monitor Intake Visit Reasons: MARKETING TECHNOLOGY COORDINATOR/AFIB/[place] Intake Note: MARKETING TECHNOLOGY COORDINATOR/AFIB/ Order Desk Caller Required: No Accompanied by: Self / Same As Patient Allergies No Known Allergies Allergy (Verified 09/09/24 11:09) Medication List - Last Reconciled 09/09/24 by Jerry Guzman MD amlodipine 5 mg See Protocol PO DAILY ammonium lactate 12% 1 appl See Protocol topical BID apixaban (Eliquis) 5 mg PO BID cholecalciferol (vitamin D3) 1,250 mcg PO QWEEK 3 months [Compression Garments Bilateral reduction kits, one pair, 2 extension kits and 2 knee spine] docusate sodium 100 mg PO BID 3 months ferrous sulfate (Iron (ferrous sulfate)) 325 mg PO DAILY psyllium husk (Metamucil) 1 tsp PO DAILY PRN HPI Comments Details: Jey is here for consultation regarding atrial fibrillation. He was actually seen in hospital last year regarding atrial fibrillation where he was hospitalized for lower GI bleeding. Per that documentation, he had not seen a PCP for more than 30 years. Also, he was on Coumadin about 30 years ago for unknown reasons. Currently, he is back for follow-up. He is not having any cardiac symptoms like palpitations or anything else. Main issues rather severe obesity and apparently it has been like this for a while. He comes in a wheelchair. Minimal ambulation. With any form of activity, he does get weak and short of breath. However, no clear-cut cardiac issues in the past with a coronary disease or myocardial infarction or cardiomyopathy. [facility] Medical History Vitamin D deficiency Essential hypertension Ileitis, terminal History of adenomatous polyp of colon Morbid obesity with BMI of 50.0-59.9, adult History of GI bleed Anemia Lymphedema associated with obesity Atrial fibrillation Atrial fibrillation by electrocardiogram Morbid obesity Surgical History Hx of colonoscopy S/P hernia surgery S/P appendectomy Family History Mother No problems noted. Father No problems noted. Social History Household Members: Other Household Members Other:: sister Housing: House Are you a primary skin care consultant to a significant other at home: No Do you presently have visiting nurse or other home services: No Alcohol intake: never Patient Tobacco Use Status: Never used Tobacco e-Cigarette/Vaping Use: Never Used Second Hand Smoke Exposure: No service: No Current occupational status: retired Cognitive needs: No Hearing needs: No Vision needs: Yes (Reading Glasses) Review of Systems Const Denies chills, Denies fatigue, Denies fever(s), Denies frequent falls, Denies weakness, Denies weight gain and Denies weight loss ENT Denies dizziness Card Denies chest pain, Denies leg edema, Denies lightheadedness, Denies palpitations, Denies dyspnea, Denies dyspnea on exertion and Denies orthopnea Resp Denies cough, Denies dyspnea and Denies dyspnea on exertion GI Denies bloating and Denies change in bowel habits Musc Denies muscle weakness, Denies numbness and Denies tingling Neuro Denies dizziness, Denies frequent falls, Denies numbness, Denies tingling and Denies weakness Endo Denies fatigue and Denies palpitations Physical Exam Vital Signs: Last Vital Signs Pulse 66 09/09/24 11:09 BP 140/74 H 09/09/24 11:09 BMI result Body Mass Index 66.6 Const General: comfortable and no acute distress Orientation/consciousness: patient oriented x3 HEENT Other: Unremarkable Head: Yes normal to inspection Neck Neck: Yes normal visual inspection Chest Chest palpation & inspection: normal inspection of the chest Resp Auscultation: clear to auscultation bilaterally Cardio Palpation: normal PMI Heart sounds: S1 normal heart sound present, S2 normal heart sound present, no gallops, no murmurs and no rubs GI Palpation (GI): Soft to palpation Back/Spine/Pelvis Other: unremarkable Skin General skin exam: no rashes or lesions noted Neuro General: patient oriented x3 Extrem Other: Chronic changes Psych Mental Status: mental status grossly normal Office Procedures EKG Details: EKG with atrial fibrillation at a rate of 66/Min; rightward axis; incomplete right bundle-branch block pattern. [id number], Complete Assessment & Plan Assessment & Plan (1) Persistent atrial fibrillation: Code(s): I48.19 - Other persistent atrial fibrillation Category: Medical (2) Morbid obesity with BMI of 60.0-69.9, adult: Code(s): E66.01 - Morbid (severe) obesity due to excess calories; Z68.44 - Body mass index [BMI] 60.0-69.9, adult Category: Medical Plan We will plan on echocardiogram and Holter monitor for further evaluation. He is spontaneously rate controlled without any medications. This is likely due to underlying conduction system disease. Most likely, has significant sleep apnea at baseline. That will need independent workup in the due course. With regard to anticoagulation, he is on Eliquis. However, it has not been studied in people of his weight and hence unclear if he is adequately anticoagulated or not. Coumadin is probably better option but in his case, not clear if he is able to actually come to Coumadin clinic for INR checks extra. Hence no changes today. With regard to the actual issue of the weight, we will refer him to bariatric for evaluation. Orders: Orders ECG 3 day holter monitor Today I48.19 - Other persistent atrial fibrillation CA echo transthorac w con Today I48.19 - Other persistent atrial fibrillation Referrals Bariatric Surgery Referral E66.01 - Morbid (severe) obesity due to excess calories, Z68.43 - Body mass index [BMI] 50.0-59.9, adult Coding Level of Care Code Est Pt Level 4 (59336) Complex EM visit Add On G2211 Diagnoses Persistent atrial fibrillation I48.19 Morbid obesity with BMI of 60.0-69.9, adult E66.01; Z68.44 CPT Codes EKG - CPT: 66053-[id number], Complete ([id number])
[2024-09-09 11:09] VITALS: BP 140/74; PULSE 66; BMI 66.6
== END 2024-09-09 11:42 | disposition home or self-care (01) ==
LOC: HO.HCS 10:57
PROVIDERS: PCP Internal Medicine; Visit Provider Internal Medicine
DX: I48.19 Other persistent atrial fibrillation (principal); E66.01 Morbid (severe) obesity due to excess calories; Z68.44 Body mass index [BMI] 60.0-69.9, adult
CPT/HCPCS: 93010; 99214; G2211

== ENCOUNTER → 2024-09-09 10:56 | Outpatient (BNVA) | payer OTHER, SELFPAY | PROVIDERS: PCP Internal Medicine; Visit Provider Internal Medicine | DX: I48.19 Other persistent atrial fibrillation (principal); E66.01 Morbid (severe) obesity due to excess calories; Z68.44 Body mass index [BMI] 60.0-69.9, adult | CPT/HCPCS: 93005; 99212 ==

== ENCOUNTER → 2024-10-12 13:14 | Outpatient (REF) | payer OTHER, SELFPAY ==
--- NOTE | 2024-10-12 13:17 | CA_ITS ---
Transthoracic Echocardiogram Patient (Last, First, Middle): Jey Hicks P Gender: Male Date of : 1965 Age: 59 Procedure Date: 10/12/2024 Procedure Type: Transthoracic Echocardiogram Location: OP Height: 187.96 cm Weight: 283.5 kg BSA: 3.53 m2 Heart Rate: 59 bpm BP: 160 / 90 mmHg Envelope Sealing Machine Operator: BREANA Referring MD: Jerry Guzman MD Symptoms: I48.19 - Other persistent atrial fibrillation Study Quality: Technically Difficult but Fair ECG Rhythm: Atrial Fibrillation Conclusions: - The left ventricular systolic function is normal. The calculated ejection fraction is 60% by biplane method. - No obvious valvular pathology seen on this study. Findings Left Ventricle Normal left ventricular cavity size. There is moderately increased left ventricular wall thickness. The left ventricular systolic function is normal. The calculated ejection fraction is 60% by biplane method. There is no evidence of regional wall motion abnormalities. Diastolic function is indeterminate on the basis of available data. Right Ventricle Moderately increased right ventricular cavity size. There is low normal right ventricular systolic function. Atria The left atrium is severely dilated. The right atrium is normal in size. Aortic Valve There is a normal trileaflet aortic valve. There is no aortic valve stenosis. There is trace (trivial) aortic valve regurgitation. Mitral Valve The mitral valve appears normal. There is trace mitral valve regurgitation. There is no mitral valve stenosis. Pulmonic Valve The pulmonic valve is likely normal. Tricuspid Valve Normal tricuspid valve structure. There is trace tricuspid valve regurgitation. There is no evidence of pulmonary hypertension. Great Vessels The asc aorta and aortic arch are normal in size. Venous The inferior vena cava is dilated and collapses less than 50% with inspiration. Pericardium/Pleural There is no evidence of pericardial effusion. Prior Study Comparison No significant change compared to prior study dated: 12/23/2023. Recommendations, Care & Conclusions No obvious valvular pathology seen on this study. Measurements 2D Linear Measurements IVSd: 1.28 0.6-0.9/0.6-1.0 cm LVIDd: 5.08 3.9-5.3/4.2-5.9 cm LVIDd Index: 1.44 2.4-3.2/2.2-3.1 cm/m2 LVIDs: 2.83 2.0-3.6 cm LVPWd: 1.38 0.7-1.1 cm LA Diam: 5.10 2.7-3.8/3.0-4.0 cm LAIDs Index: 1.44 1.5-2.3 cm/m2 LV Mass: 345.89 67-162/88-224 g LV Mass Index: 97.99 43-95/49-115 g/m2 LVOT Diam: 2.20 3.0+(-)1.3 cm 2D Systolic Function EF 4C: 61.40 >55% EF 2C: 57.30 >55% EF BiP: 59.60 >55% Mitral Valve MV VTI: 0.31 MV Pk Emerson: 1.19 MV Mn Emerson: 0.70 MV Pk Grad: 6.00 MV Mn Grad: 2.00 MV Pk E: 1.28 MV Decel Time: 189.00 E'Lateral: 12.50 E'Medial: 7.54 E/E' Med: 17.00 E/E' Lat: 10.20 PHT: 55.00 MVA PHT: 4.00 MVA Continuity: 3.06 Decel [place]: 6.85 Aortic Valve AoV Pk Emerson: 1.32 AoV Mn Emerson: 0.96 AoV VTI: 0.31 AoV Pk Grad: 7.00 Aov Mn Grad: 4.00 SHANA Cont.VTI: 3.07 LVOT LVOT Pk Emerson: 1.12 LVOT Mn Emerson: 0.79 LVOT VTI: 0.25 LVOT Pk Grad: 5.00 LVOT Mn Grad: 3.00 LVOT Diam: 2.20 LVOT Area: 3.80 Diastolic Function MV Pk E: 1.28 E'Medial: 7.54 E/E' Med: 17.00 E' Laterial: 12.50 E/E' Lat: 10.20 Right Ventricle TAPSE (mm): 21.20 TVS' Emerson: 10.50 Tricuspid Valve TR Pk Emerson: 2.16 TR Pk Grad: 19.00 RA Press: 15.00 RVSP: 34.00 Great Vessels Aorta Sinus of Valsalva: 3.80 2.0-3.5 cm Ao Asc: 3.60 2.1-3.4 cm Ao Arch: 3.10 Pulmonary Valve PV Pk Emerson: 0.95 Peak PV Grad: 4.00 Updated in Other Vendor System with Status of Final Jerry Guzman MD electronically signed on 10/13/2024 10:13:21 AM with status of Final
--- NOTE | 2024-10-12 13:17 | HM_ITS ---
Conclusion: 1. Patient was monitored for total period of 3 days 2. Baseline was atrial fibrillation with average heart rate of 67 beats per minute with good rate control 3. Pauses noted up to 2.9 seconds but without clinical significance of greater than 2nd pauses 4. No patient reported events MTDD
== END ==
LOC: HO.CARD 13:14
PROVIDERS: PCP Internal Medicine; Visit Provider Internal Medicine
DX: I48.19 Other persistent atrial fibrillation (principal)
CPT/HCPCS: 93242; 93306

== ENCOUNTER → 2024-10-12 13:17 | Outpatient (BNV) | payer OTHER, SELFPAY | PROVIDERS: PCP Internal Medicine; Visit Provider Internal Medicine | DX: I51.7 Cardiomegaly (principal) | CPT/HCPCS: 93306 ==

== ENCOUNTER 2024-11-16 08:55 | Outpatient (AMB) | payer OTHER, SELFPAY ==
--- OUTSIDE RECORDS SUMMARY | 2024-11-12 23:59 | XMS_ITS | Continuity of Care Document ---
Author Organization [facility] Address [address] [place] [address]- Care Team Providers Care Construction Supervisor Name Role Phone Se DANIELS, Karoline Polo Primary Care Physician Encounter [facility] Date(s): 10/13/24 - 11/12/24 [facility] [address] [place] [id number] Encounter Type: Triage Allergies, Adverse Reactions, Alerts [...] Reference Physician Member Role: PCP Address: [address] [place], [place] [address] Telecom: Care Team Related Persons Name: LAYO TAO Insurance Providers Guarantor name: CALLIE Health Plan Information #: 1 Payer: [employer] Payer Identifier: NA Member Number: [id number] Group Number: [id number] Subscriber Identifier: [id number] Relationship to Subscriber: self Coverage Type: NA Coverage Verification Date: NA Telecom: NA Address: NA
--- NOTE | 2024-11-16 09:12 | MHC.OFFVISWM ---
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 BMI 63.9 Allergies No Known Allergies Allergy (Verified 11/16/24 09:12) Medication List - Last Reconciled 11/16/24 by Mert Newby MD amlodipine 5 mg See Protocol PO DAILY ammonium lactate 12% 1 appl See Protocol topical BID apixaban (Eliquis) 5 mg PO BID cholecalciferol (vitamin D3) 1,250 mcg PO QWEEK 3 months [Compression Garments Bilateral reduction kits, one pair, 2 extension kits and 2 knee spine] docusate sodium 100 mg PO BID 3 months ferrous sulfate (Iron (ferrous sulfate)) 325 mg PO DAILY psyllium husk (Metamucil) 1 tsp PO DAILY PRN HPI Comments Details: Previous weight loss efforts: [employer]ystem (200lbs, 20 years ago) Wakes up: 11am, Sleeps: 3am Breakfast: skips Lunch: 12pm ([place]) Dinner: 7pm (chicken) Snacks: occasionally popcorn at night Exercise: none Beverages: Coffee: none, Tea: Iced low calorie (2 cups/d), Soda: none, Juice/ETOH: none PFSH Medical History Vitamin D deficiency Essential hypertension Ileitis, terminal History of adenomatous polyp of colon Morbid obesity with BMI of 50.0-59.9, adult History of GI bleed Anemia Lymphedema associated with obesity Atrial fibrillation Atrial fibrillation by electrocardiogram Morbid obesity Surgical History Hx of colonoscopy S/P hernia surgery S/P appendectomy Family History Mother No problems noted. Father No problems noted. Social History Household Members: Other Household Members Other:: sister Housing: House Are you a primary intensive care unit nurse to a significant other at home: No Do you presently have visiting nurse or other home services: No Alcohol intake: never Patient Tobacco Use Status: Never used Tobacco e-Cigarette/Vaping Use: Never Used Second Hand Smoke Exposure: No service: No Current occupational status: retired Cognitive needs: No Hearing needs: No Vision needs: Yes (Reading Glasses) Physical Exam GI Inspection: Yes normal to inspection, Yes incision (well healed), Yes Abdominal panniculus present and Yes obesity Palpation (GI): Soft to palpation Extrem Right lower extremity: foot (severe lymphedema) Left lower extremity: foot (severe lymphedema) Assessment & Plan Assessment & Plan (1) Morbid obesity with BMI of 60.0-69.9, adult: Code(s): E66.01 - Morbid (severe) obesity due to excess calories; Z68.44 - Body mass index [BMI] 60.0-69.9, adult Category: Medical Plan: 1.? Plan for lap sleeve gastrectomy. If diaphragmatic or ventral hernias are present at time of surgery, these will be repaired laparoscopically as well. I emphasized the importance of close follow-up, adherence to instructions and good communication. The surgery does not replace the need to change your lifestlyle which is the cause of the obesity problem. The surgery provides the motivation to try again to change your lifestyle, it reduces the appetite and make the transition to a better lifestyle easier and doubles the amount of weight you would lose compared to doing the lifestyle change without the surgery. You will need to be on a liquid diet with protein shakes for 2 weeks before surgery to maximize weight loss and boost your nutritional status to recover better from surgery and also for the first two weeks after surgery to let the stomach heal before we introduce other foods. After the first 2 weeks we will introduce protein bars and soft foods like scrambled eggs, cottage cheese and yogurt and after the 6th week will introduce meat, fish and cooked vegetables in small amounts. Over time you should be able to eat everything in small amounts. Side effects like nausea, vomiting, heartburn or abdominal pain are not common in the practice unless you are not following in the practice. This operation requires lifetime commitment to following in our practice and communication with me. You will much less weight and experience side effects if you don?t communicate or not following in the practice. Complications are rare and in our practice is about 1/10 of the national average. However, you can develop bleeding that may require transfusion (hasn?t happened for year in the practice), you may from complications (we did not have any deaths in the practice) and infections. Infections are usually a result of breakdown in communication or not understanding or following directions correctly. They are difficult to treat, they can happen during the first 6 weeks, they may require to be in the hospital for weeks or even months, not being able to eat by mouth and you may have drains and surgeries to try and correct the issue. Other risks and complications include possible conversion to an open procedure, leaks, small bowel obstruction, blood clots, cardiac, or pulmonary complications, as fpc complications such as ulcers, insufficient weight loss and vitamin deficiencies. 2. Nutritional counseling. Start with one premade PREMIER protein (buy at [employer] or [employer]) shake at 11am-1pm, one protein bar (Fit Crunch protein bar, buy at [employer], or [employer]) at 2pm-4pm, another premade PREMIER protein shake at 5pm-7pm, dinner at 8pm (15 forks of protein and 15 forks of salad/vegetables), and two more Fit Crunch bars at 10pm to midnight and at 1am-3am So you do 2 protein shakes, 3 protein bars and one meal per day. Meal to include lean meat (beef, fish, pork, turkey, chicken), or bulgarian yogurt, or egg whites, or beans with a salad with olive oil and fruits (berries, pears, apples, kiwi). Avoid salt, breads, potatoes, rice, pasta, desserts. 3. The patient is in great need for any help he can get to assist him with weight loss. Phentermine is not a good choice because of the hypertension and persistent atrial fibrilation. I ordered a medication to help you with the weight loss which is called Zepbound. My office will try to authorize it. Please let me know when you receive it so I can give you a meal and exercise plan. Common side effects include nausea, vomiting, constipation, diarrhea, abdominal pain. Please let me know if you develop any of these symptoms. 4. Each shake would be drunk slowly, like coffee in a period of 2 hours. 5. Cut each bar in 4 pieces and eat each piece in 30min ?to make each bar last 2 hours. 6. I emphasized the importance of measuring accurately the food portion and measure it when serving the food in plate 7. The meal portions include 15 full-size forks of meat and 15 full-size forks of salad. You always eat the meat portion but you can replace up to 7 forks for salad/vegetables with rice, potatoes or pasta, or a fruit ?if you like. The less you do it the better weight loss will be. 7. One full-size fork is what it can be scooped on the fork without falling aside and not what can be bit with the fork. Use regular forks like those you find in a typical restaurant. 9. Start walking at the house daily and count the steps you are making. Set up some goals of a minimum number of steps to do per day and try every week to increase it. Walk daily 10. Goal is to lose at least 1.5-2lbs per week 11. Goal to lose 100-120lbs before surgery. Ultimate weight goal: 400lbs before surgery 12. Please follow the diet plan exactly without any change. If you don't like something about the plan or you feel hungry you need to communicate with me so I can help you revise the plan. You should not change the plan yourself 13. To be scheduled for EGD to assess the stomach's anatomy. The possibility of biopsies was discussed. Patient needs to avoid use of NSAIDs and aspirin for 1 week prior to EGD. You must be on liquids only the day before your endoscopy. Risks of perforation and bleeding was discussed with the patient. This will be an outpatient procedure with IV sedation. Medications: New tirzepatide (weight loss) (Zepbound) for 4 weeks 2.5 mg (0.5 mL) subcut QWEEK 2 mL 0RF E66.01 - Morbid (severe) obesity due to excess calories, I10 - Essential (primary) hypertension, I48.91 - Unspecified atrial fibrillation, Z68.44 - Body mass index [BMI] 60.0-69.9, adult
[2024-11-16 09:22] VITALS: BP 168/84; PULSE 68; TEMP 36.3; O2SAT 96; BMI 66.5
== END 2024-11-16 10:08 | disposition home or self-care (01) ==
LOC: HO.HBS 08:56
PROVIDERS: PCP Internal Medicine; Visit Provider Surgery
DX: E66.01 Morbid (severe) obesity due to excess calories (principal); Z68.44 Body mass index [BMI] 60.0-69.9, adult
CPT/HCPCS: 99204

== ENCOUNTER → 2024-11-16 08:55 | Outpatient (BNVA) | payer OTHER, SELFPAY | PROVIDERS: PCP Internal Medicine; Visit Provider Surgery | DX: E66.01 Morbid (severe) obesity due to excess calories (principal); Z68.44 Body mass index [BMI] 60.0-69.9, adult | CPT/HCPCS: 99202 ==

== ENCOUNTER 2024-12-15 13:27 | Outpatient (AMB) | payer OTHER, SELFPAY ==
[2024-12-15 13:29] VITALS: BP 110/74; PULSE 80; RESP 16; TEMP 36.7; O2SAT 97; BMI 61.1
--- NOTE | 2024-12-15 13:29 | A.OFFPC_ITS ---
Vital Signs 12/15/24 13:29 Height 6 ft 2 in Weight 476 lb BMI 61.1 BP 110/74 Blood Pressure Location Lt radial Position Sitting Respiration 16 Pulse 80 Pulse Source Pulse Oximeter Temp 98.1 F Temp Source Oral Pulse Oximetry (%) 97 Oxygen Delivery Method Room Air Intake Visit Reasons: Annual PE Intake Note: Pt is here today for her PE: last colonoscopy 12/24/23 Allergies No Known Allergies Allergy (Verified 12/15/24 13:52) Medication List - Last Reconciled 12/15/24 by Karoline Saez MD amlodipine 5 mg See Protocol PO DAILY ammonium lactate 12% 1 appl See Protocol topical BID apixaban (Eliquis) 5 mg PO BID cholecalciferol (vitamin D3) 1,250 mcg PO QWEEK 3 months [Compression Garments Bilateral reduction kits, one pair, 2 extension kits and 2 knee spine] docusate sodium 100 mg PO BID 3 months ferrous sulfate (Iron (ferrous sulfate)) 325 mg PO DAILY psyllium husk (Metamucil) 1 tsp PO DAILY PRN tirzepatide (weight loss) (Zepbound) 2.5 mg (0.5 mL) subcut QWEEK Tobacco use date assessed: 12/15/24 Dental Screening Dental Screen Date: 12/15/24 Did you have a dental visit in the last 12 months?: No Did you have a dental problem in the last 6 months where you did not have access to dental care?: No Was dental information given to patient?: Patient declined [facility] Medical History (Updated 12/15/24 @ 14:13 by Karoline Saez MD) Vitamin D deficiency Essential hypertension Ileitis, terminal History of adenomatous polyp of colon History of GI bleed Anemia Lymphedema associated with obesity Atrial fibrillation by electrocardiogram Morbid obesity Surgical History Hx of colonoscopy S/P hernia surgery S/P appendectomy Family History Mother No problems noted. Father No problems noted. Social History Household Members: Other Household Members Other:: sister Housing: House Are you a primary animal care provider to a significant other at home: No Do you presently have visiting nurse or other home services: No Alcohol intake: never Patient Tobacco Use Status: Never used Tobacco e-Cigarette/Vaping Use: Never Used Second Hand Smoke Exposure: No service: No Current occupational status: retired Cognitive needs: No Hearing needs: No Vision needs: Yes (Reading Glasses) Questionnaire PHQ-9 Over the last 2 weeks, how often have you been bothered by any of the following problems? 1. Little interest or pleasure in doing things: not at all 2. Feeling down, depressed, or hopeless: not at all 3. Trouble falling or staying asleep, or sleeping too much: not at all 4. Feeling tired or having little energy: not at all 5. Poor appetite or overeating: not at all 6. Feeling bad about yourself - or that you are a failure or have let yourself or your family down: not at all 7. Trouble concentrating on things, such as reading the newspaper or watching television: not at all 8. Moving or speaking so slowly that other people could have noticed. Or the opposite - being so fidgety or restless that you have been moving around a lot more than usual: not at all 9. Thoughts that you would be better off or of hurting yourself in some way: not at all Total score: 0 Depression Screening Interpretation: Negative Depression Screening Done: Yes Source: Developed by Drs. Francis Ryan, Sonya Armas, Yakov Mena and colleagues, with an educational carmen from [employer]. Thrive Questionnaire Date Thrive assessed: 12/08/24 I am a: Patient What is your living situation today?: I have a steady place to live Within the past 12 months, did the food you bought not last and you didn't have the money to get more?: Never true Within the past 12 months, did you worry whether your food would run out before you got money to buy more?: Never true Do you have trouble paying for medicines?: No Do you have trouble getting transportation to medical appointments?: No Do you have trouble paying your heating and electricity bill?: No Do you have trouble taking care of your child, family member or friend?: No Do you have trouble with day-to-day activities such as bathing, preparing meals, shopping, managing finances, etc.?: No Are you currently unemployed and looking for a job?: I choose not to answer this question Are you interested in more education?: No Please select the resources that you would like help with: None Currently or been in a relationship where the following occur: No concerns reported THRIVE Score: 0 AUDIT C Alcohol Use Questionnaire (AUDIT-C) 1. How often do you have a drink containing alcohol?: Never Total Score: 0 XENA-7 AMB Questionnaire XENA-7 Date XENA - 7 assessed: 12/15/24 Feeling nervous, anxious, or on edge: 0 = Not at all Not being able to stop or control worryin = Not at all Worrying too much about different things: 0 = Not at all Trouble relaxin = Not at all Being so restless that it is hard to sit still: 0 = Not at all Becoming easily annoyed or irritable: 0 = Not at all Feeling afraid as if something awful might happen: 0 = Not at all Total XENA-7 score (0-4 normal; 5-9 mild; 10-14 moderate; 15-21 severe): 0 Source: Developed by Drs. Francis Ryan, Sonya Armas, Yakov Mena and colleagues, with an educational carmen from [employer]. Physical exam (Primary Care) Vital Signs: Last Vital Signs Temp 98.1 F 12/15/24 13:29 Pulse 80 12/15/24 13:29 Resp 16 12/15/24 13:29 BP 110/74 12/15/24 13:29 Pulse Ox 97 12/15/24 13:29 Oxygen Delivery Method Room Air 12/15/24 13:29 BMI result Body Mass Index 61.1 Tobacco/Smoking Status: Tobacco use Status Tobacco use date assessed 12/15/24 12/15/24 13:33 Patient Tobacco Use Status Never used Tobacco 12/15/24 13:33 e-Cigarette/Vaping Use Never Used 12/15/24 13:33 PHQ-9: PHQ-9 Score PHQ-9: Total score 0 12/15/24 14:14 Depression Screening Interpretation: Negative Thrive Assessment: Date of Thrive Assessment Date Thrive assessed 12/08/24 12/15/24 13:33 Currently or been in a relationship where the following occur: No concerns reported Immunizations Boostrix Tdap 2.5 Lf unit-8 mcg-5 Lf/0.5 mL intramuscular syringe Performing Provider: Karoline Saez MD Performing Location: [facility] Administered by: Alfreda Boateng CMA on 12/15/24 14:24 Dose Route Admin Location Dispensed Lot Number Expiration Date NDC Manufacturing Engineer Paint 0.5 mL IM Right Deltoid 0.5 mL [id number] 01/15/27 99806-331-41 [employer]SE[employer] Total Dispensed Waste 0.5 mL 0 % VIS Given Date VIS Provided VIS Publication Date 12/15/24 Single Vaccine 20 Eligibility Eligibility Date Funding Source Not [facility] Eligible 12/15/24 Private Coding Level of Care Code Est Pt Prev Care 40-64y([id number]) Diagnoses Lesion of skin of scalp L98.9 Essential hypertension I10 Persistent atrial fibrillation I48.19 Morbid obesity with BMI of 60.0-69.9, adult E66.01; Z68.44 Vitamin D deficiency E55.9 History of adenomatous polyp of colon Z86.0101 Anemia, unspecified type D64.9 Anemia type: unspecified type Lymphedema associated with obesity I89.0; E66.9 Advance directive discussed with patient Z71.89 Annual visit for general adult medical examination with abnormal findings Z00.01 Assessment & Plan Assessment & Plan (1) Lesion of skin of scalp: Code(s): L98.9 - Disorder of the skin and subcutaneous tissue, unspecified (2) Essential hypertension: Code(s): I10 - Essential (primary) hypertension Category: Medical (3) Persistent atrial fibrillation: Code(s): I48.19 - Other persistent atrial fibrillation Category: Medical (4) Morbid obesity with BMI of 60.0-69.9, adult: Code(s): E66.01 - Morbid (severe) obesity due to excess calories; Z68.44 - Body mass index [BMI] 60.0-69.9, adult Category: Medical (5) Vitamin D deficiency: Code(s): E55.9 - Vitamin D deficiency, unspecified Category: Medical (6) History of adenomatous polyp of colon: Comment: Seen on colonoscopy 12/24/[address] Carbajal Code(s): Z86.0101 - Personal history of adenomatous and serrated colon polyps Category: Medical (7) Anemia: Code(s): D64.9 - Anemia, unspecified Category: Medical Qualifiers: Anemia type: unspecified type Qualified Code(s): D64.9 - Anemia, unspecified (8) Lymphedema associated with obesity: Code(s): I89.0 - Lymphedema, not elsewhere classified; E66.9 - Obesity, unspecified Category: Medical (9) Advance directive discussed with patient: Code(s): Z71.89 - Other specified counseling (10) Annual visit for general adult medical examination with abnormal findings: Code(s): Z00.01 - Encounter for general adult medical examination with abnormal findings Orders: Orders PSA,Total (Free>4and<10) Today Z12.5 - Encounter for screening for malignant neoplasm of prostate TDaP Immunization Today Z23 - Encounter for immunization Referrals General Surgery Referral L98.9 - Disorder of the skin and subcutaneous tissue, unspecified Medications: Refilled amlodipine 5 mg See Protocol PO DAILY 90 tabs 3RF ferrous sulfate (Iron (ferrous sulfate)) 325 mg PO DAILY 90 tabs 1RF
== END 2024-12-15 14:17 | disposition home or self-care (01) ==
LOC: HO.HMCC 13:27
PROVIDERS: PCP Internal Medicine; Visit Provider Internal Medicine
DX: Z23 Encounter for immunization (principal)

== ENCOUNTER → 2024-12-15 13:27 | Outpatient (BNVA) | payer OTHER, SELFPAY | PROVIDERS: PCP Internal Medicine; Visit Provider Internal Medicine | DX: Z00.01 Encounter for general adult medical examination with abnormal findings (principal); L98.9 Disorder of the skin and subcutaneous tissue, unspecified; I10 Essential (primary) hypertension; I48.91 Unspecified atrial fibrillation; E66.01 Morbid (severe) obesity due to excess calories; I48.19 Other persistent atrial fibrillation; E55.9 Vitamin D deficiency, unspecified; D64.9 Anemia, unspecified; I89.0 Lymphedema, not elsewhere classified; Z23 Encounter for immunization; Z71.89 Other specified counseling; Z79.01 Long term (current) use of anticoagulants; Z68.44 Body mass index [BMI] 60.0-69.9, adult; Z86.0101 Personal history of adenomatous and serrated colon polyps | CPT/HCPCS: 90471; 90715; 99396; 99497 ==

== ENCOUNTER 2024-12-17 11:56 | Outpatient (REF) | payer OTHER, SELFPAY ==
[2024-12-17 13:18] LABS: MANUAL DIFF FLAG NO
[2024-12-17 13:23] LABS: Hematocrit 43.2 % (42.0-52.0); Hemoglobin 14.2 g/dl (14.0-18.0); Imm Gran Abs Auto 0.04 X10*3/uL (0.00-0.03); Imm Gran Pct Auto 0.6 % (0.0-0.4); Lymphocytes Absolute Auto 1.0 X10*3/uL (1.2-4.9); Mean Corpuscular HGB Conc 32.9 g/dl (31.0-36.0); Mean Corpuscular Hemoglobin 26.9 pg (27.0-33.0); Mean Corpuscular Volume 81.8 fL (80.0-98.0); NRBC Abs Auto 0.000 X10*3/uL (0.0-0.012); NRBC Pct Auto 0.0 /100WBC (0.0-0.2); Platelet Count 203 X10*3/uL (160-400); Red Blood Count 5.28 X10*6/uL (4.60-5.80); White Blood Count 7.2 X10*3/uL (4.8-10.8)
[2024-12-17 13:57] LABS: Alanine Aminotransferase 31 U/L (0-40); Anion Gap 13 (12-20); Aspartate Amino Transferase 37 U/L (5-37); Blood Urea Nitrogen 39 mg/dL (9-16); Calcium 9.7 mg/dL (8.4-10.2); Carbon Dioxide 29 mmol/L (22-29); Chloride 105 mmol/L (96-108); Cholesterol 154 mg/dL (<200); Estimated Glomerular Filt Rate 51; HDL Cholesterol 45 mg/dL (>40); Iron 63 mcg/dL (45-160); Percent Iron Saturation 25 % (15-50); Potassium 4.1 mmol/L (3.3-5.1); Sodium 143 mmol/L (135-145); Total Iron Binding Capacity 256 mcg/dL (228-428); Triglycerides 91 mg/dL (<150); Unsaturated Iron Binding 193 ug/dL
[2024-12-17 14:21] LABS: PSA,Total (Free>4and<10) 0.56 ng/mL (0.00-4.00)
== END 2024-12-17 11:57 | disposition home or self-care (01) ==
LOC: HO.HMGCLDS 11:56
PROVIDERS: PCP Internal Medicine; Visit Provider Internal Medicine
DX: I48.19 Other persistent atrial fibrillation (principal); I10 Essential (primary) hypertension; E55.9 Vitamin D deficiency, unspecified; D64.9 Anemia, unspecified; Z12.5 Encounter for screening for malignant neoplasm of prostate; E87.6 Hypokalemia; Z86.0101 Personal history of adenomatous and serrated colon polyps
CPT/HCPCS: 36415; 80048; 80061; 82306; 83540; 84153; 84450; 84460; 85025; 93005; 99212

== ENCOUNTER 2024-12-17 13:01 | Outpatient (AMB) | payer OTHER, SELFPAY ==
[2024-12-17 13:06] VITALS: BP 114/68; PULSE 64; BMI 62.6
--- NOTE | 2024-12-17 13:06 | MHC.OFFVIS ---
Vital Signs 12/17/24 13:06 Height 6 ft 2 in Weight 487 lb 9.6 oz BMI 62.6 BP 114/68 Blood Pressure Location Lt brachial Position Sitting Pulse 64 Pulse Source Monitor Intake Visit Reasons: fu echo/holter (HS) Accompanied by: Other Relationship Allergies No Known Allergies Allergy (Verified 12/17/24 13:10) Medication List - Last Reconciled 12/17/24 by Jerry Alarcon NP amlodipine 5 mg See Protocol PO DAILY ammonium lactate 12% 1 appl See Protocol topical BID apixaban (Eliquis) 5 mg PO BID cholecalciferol (vitamin D3) 1,250 mcg PO QWEEK 3 months [Compression Garments Bilateral reduction kits, one pair, 2 extension kits and 2 knee spine] ferrous sulfate (Iron (ferrous sulfate)) 325 mg PO DAILY psyllium husk (Metamucil) 1 tsp PO DAILY PRN tirzepatide (weight loss) (Zepbound) 2.5 mg (0.5 mL) subcut QWEEK HPI Comments Details: This is a 59-year-old male patient coming in for a follow-up visit. Patient with a history of persistent AFib on Eliquis and morbid obesity who is here today with family in a wheelchair. Pt recently underwent an echo and a holter study and is here to review those results. Pt at the last visit was discussed about requiring Coumadin for anticoag as Eliquis may not be therapeutic given his weight. However today pt states that he has started weight loss journey with bariatric and was recently started on Zepbound where pt has lost almost 40 lbs. Pt is otherwise denying any cardiac symptoms of exertional CP, SOB, palpitations, dizziness, orthopnea, PND, leg edema, presyncope or syncope. Patient is reporting compliance with all his medications. [facility] Medical History Vitamin D deficiency Essential hypertension Ileitis, terminal History of adenomatous polyp of colon History of GI bleed Anemia Lymphedema associated with obesity Atrial fibrillation by electrocardiogram Morbid obesity Surgical History Hx of colonoscopy S/P hernia surgery S/P appendectomy Family History Mother No problems noted. Father No problems noted. Social History Household Members: Other Household Members Other:: sister Housing: House Are you a primary career discovery teacher to a significant other at home: No Do you presently have visiting nurse or other home services: No Alcohol intake: never Patient Tobacco Use Status: Never used Tobacco e-Cigarette/Vaping Use: Never Used Second Hand Smoke Exposure: No service: No Current occupational status: retired Cognitive needs: No Hearing needs: No Vision needs: Yes (Reading Glasses) Review of Systems Const Denies daytime sleepiness, Denies difficulty sleeping, Denies snoring, Denies stops breathing during sleep and Denies weakness Card Denies chest pain, Denies rapid heart rate, Denies irregular heart rhythm, Denies claudication, Denies leg edema, Denies lightheadedness, Denies palpitations, Denies dyspnea, Denies dyspnea on exertion, Denies orthopnea, Denies paroxysmal nocturnal dyspnea and Denies slow heart rate Resp Denies cough, Denies dyspnea, Denies dyspnea on exertion and Denies snoring GI Reports no additional complaints, Denies hematochezia, Denies change in stool character and Denies dyspepsia Musc Denies abnormal gait, Denies muscle weakness and Denies numbness Neuro Denies abnormal gait, Denies numbness and Denies weakness Endo Denies palpitations Physical Exam Vital Signs: Last Vital Signs Pulse 64 12/17/24 13:06 BP 114/68 12/17/24 13:06 BMI result Body Mass Index 62.6 Const General: cooperative, comfortable and no acute distress Orientation/consciousness: patient oriented x3 HEENT Head: Yes normal to inspection Neck Neck: Yes normal visual inspection, Yes trachea midline and Yes supple Chest Chest palpation & inspection: normal inspection of the chest Resp Effort & Inspection: normal respiratory effort Auscultation: clear to auscultation bilaterally, no crackles, no rales, no rhonchi and no wheezes Cardio Jugular venous distension: no JVD Palpation: normal PMI Rate: regular rate Rhythm: abnormal rhythm irregularly irregular Heart sounds: S1 normal heart sound present, S2 normal heart sound present, no click, no gallops, no murmurs and no rubs Peripheral pulses: Peripheral pulses 2+ throughout GI Inspection: Yes normal to inspection Palpation (GI): Soft to palpation Auscultation: normal bowel sounds Skin General skin exam: no rashes or lesions noted Neuro General: patient oriented x3 Extrem General: Yes normal to inspection, No no pedal edema and No calf tenderness Psych Appearance: grossly normal Mental Status: mental status grossly normal Speech and movement: Normal speech and movement present Office Procedures EKG Details: EKG today showed atrial fibrillation, rate 64 beats per minute, rightward axis, incomplete right bundle branch block, nonspecific T-wave abnormality, [place]. [id number], Complete Assessment & Plan Assessment & Plan (1) Persistent atrial fibrillation: Code(s): I48.19 - Other persistent atrial fibrillation Category: Medical Plan: 10/12/2024-echo study showed a normal LV systolic function with an ejection fraction at 60% with no wall motion abnormalities or valvular pathology. 10/12/2024-Holter study showed a baseline AFib rhythm with good rate control and pauses up to 2.9 seconds. Clinically stable and without any cardiac symptoms. Patient was previously discussed about switching to warfarin therapy given his weight and question of ineffectiveness being on Eliquis. Patient states that since he is now seeing weight management and has started losing weight, he would like to stay on the Eliquis. Patient had labs done today with the PCP with stable CBC and BMP pending. We will monitor kidney function periodically. (2) Essential hypertension: Code(s): I10 - Essential (primary) hypertension Category: Medical Plan: Blood pressure today is well-controlled. Continue current regimen with a blood pressure goal less than 130/80. Advised monitoring blood pressures at home. Advised low-salt diet. (3) Morbid obesity with BMI of 60.0-69.9, adult: Code(s): E66.01 - Morbid (severe) obesity due to excess calories; Z68.44 - Body mass index [BMI] 60.0-69.9, adult Category: Medical Plan: Patient's being followed by weight loss management. Advised heart healthy diet, regular exercise, continue weight loss, medication compliance, and aggressive management of vascular risk factors. Follow up in 4 months. In the interim, patient will call the office with any concerns or change in symptoms. This note was generated using voice recognition software. While every effort has been made to ensure accuracy and proper class a regional truck driver, there may be occasional errors that could affect the content or meaning of the described symptoms. Orders: Orders AMB EKG-In Office Today I48.19 - Other persistent atrial fibrillation Coding Level of Care Code Est Pt Level 4 (89886) Complex EM visit Add On G2211 Diagnoses Persistent atrial fibrillation I48.19 Essential hypertension I10 Morbid obesity with BMI of 60.0-69.9, adult E66.01; Z68.44 CPT Codes EKG - CPT: 67462-[id number], Complete ([id number]) Time Spent (min) 31 Comment Time spent in reviewing the chart, test results, assessment, counseling and documentation.
== END 2024-12-17 13:33 | disposition home or self-care (01) ==
LOC: HO.HCS 13:02
PROVIDERS: PCP Internal Medicine
DX: I48.19 Other persistent atrial fibrillation (principal); I10 Essential (primary) hypertension; E66.01 Morbid (severe) obesity due to excess calories; Z68.44 Body mass index [BMI] 60.0-69.9, adult
CPT/HCPCS: 93010; 99214

== ENCOUNTER 2025-01-20 13:43 | Outpatient (AMB) | payer OTHER, SELFPAY ==
--- NOTE | 2025-01-20 13:50 | MHC.OFFVIS ---
Vital Signs 01/20/25 13:51 Height 6 ft 2 in Weight 479 lb 0.361 oz BMI 61.5 Intake Visit Reasons: Golf ball size lesion on right posterior scalp Intake Note: This patient presents for an assessment for golf size lesion on the right posterior scalp. Pt c/o; right posterior scalp, large mass. Electrical Manufacturing Engineer Required: No Accompanied by: Family/Other Allergies No Known Allergies Allergy (Verified 01/20/25 13:57) Medication List - Last Reconciled 01/20/25 by Kalyan Cordon MD amlodipine 5 mg See Protocol PO DAILY ammonium lactate 12% 1 appl See Protocol topical BID apixaban (Eliquis) 5 mg PO BID cholecalciferol (vitamin D3) 1,250 mcg PO QWEEK 3 months [Compression Garments Bilateral reduction kits, one pair, 2 extension kits and 2 knee spine] ferrous sulfate (Iron (ferrous sulfate)) 325 mg PO DAILY psyllium husk (Metamucil) 1 tsp PO DAILY PRN tirzepatide (weight loss) (Zepbound) 2.5 mg (0.5 mL) subcut QWEEK tirzepatide (weight loss) (Zepbound) 5 mg (0.5 mL) subcut QWEEK tirzepatide (weight loss) (Zepbound) 7.5 mg (0.5 mL) subcut QWEEK HPI HPI Golf ball size lesion on right posterior scalp: Details: 59-year-old male referred for a mass on the scalp. He says that he actually has had this for so many years now. He thinks that this has not been increasing size anymore but he wants this removed. He denies any drainage or skin changes. He is multiple medical problems including morbid obesity, atrial fibrillation and lymphedema. He is very limited ability. He therefore lives with his mother. He is on Eliquis. [facility] Medical History (Updated 01/20/25 @ 14:06 by Kalyan Cordon MD) Scalp mass Renal insufficiency Vitamin D deficiency Essential hypertension Ileitis, terminal History of adenomatous polyp of colon History of GI bleed Anemia Lymphedema associated with obesity Atrial fibrillation by electrocardiogram Morbid obesity Surgical History Hx of colonoscopy S/P hernia surgery S/P appendectomy Family History Mother No problems noted. Father No problems noted. Social History Household Members: Other Household Members Other:: sister Housing: House Are you a primary manager medicare to a significant other at home: No Do you presently have visiting nurse or other home services: No Alcohol intake: never Patient Tobacco Use Status: Never used Tobacco e-Cigarette/Vaping Use: Never Used Second Hand Smoke Exposure: No service: No Current occupational status: retired Cognitive needs: No Hearing needs: No Vision needs: Yes (Reading Glasses) Review of Systems Const Denies chills and Denies fever(s) Card Denies chest pain, Denies dyspnea and Reports dyspnea on exertion Resp Denies cough, Denies dyspnea and Reports dyspnea on exertion GI Denies hematochezia and Denies change in bowel habits Denies hematuria and Denies difficulty urinating Musc Reports abnormal gait, Denies back pain, Reports joint swelling and Reports limited range of motion Neuro Reports abnormal gait, Denies focal weakness and Denies convulsions Psych Denies depression and Denies mood swings Physical Exam Vital Signs: BMI result Body Mass Index 61.5 Const Other: Morbidly obese General: comfortable and no acute distress Orientation/consciousness: patient oriented x3 HEENT Other: Soft well-defined scalp mass about 4 cm in the right occipital area, noninflamed Neck Neck: Yes no lymphadenopathy Resp Auscultation: clear to auscultation bilaterally Cardio Other: Irregular rhythm Rhythm: abnormal rhythm GI Palpation (GI): Soft to palpation, nontender and no guarding Neuro General: patient oriented x3 Assessment & Plan Assessment & Plan (1) Scalp mass: Code(s): R22.0 - Localized swelling, mass and lump, head Category: Medical Plan: This appears to be a lipoma. Explained the technique of excision under local anesthesia. I reviewed with the risks including but not limited to bleeding and infections, as well as the benefits and alternatives. He wants to proceed. This will be done in the office on his next visit. His Eliquis may need to be held for 2 doses prior to the procedure. His sister was with him during the visit. Coding Level of Care Code New Pt Level 3 (43962) Diagnoses Scalp mass R22.0
[2025-01-20 13:51] VITALS: BMI 61.5
== END 2025-01-20 14:07 | disposition home or self-care (01) ==
LOC: HO.HGS 13:43
PROVIDERS: PCP Internal Medicine; Visit Provider Surgery
DX: R22.0 Localized swelling, mass and lump, head (principal)
CPT/HCPCS: 99203

== ENCOUNTER → 2025-01-20 13:43 | Outpatient (BNVA) | payer OTHER, SELFPAY | PROVIDERS: PCP Internal Medicine; Visit Provider Surgery | DX: R22.0 Localized swelling, mass and lump, head (principal) | CPT/HCPCS: 99202 ==

== ENCOUNTER 2025-01-28 11:27 | Outpatient (REF) | payer OTHER, SELFPAY ==
[2025-01-28 13:49] LABS: Anion Gap 13 (12-20); Blood Urea Nitrogen 45 mg/dL (9-16); Calcium 9.7 mg/dL (8.4-10.2); Carbon Dioxide 28 mmol/L (22-29); Chloride 104 mmol/L (96-108); Estimated Glomerular Filt Rate 46; Potassium 4.3 mmol/L (3.3-5.1); Sodium 141 mmol/L (135-145)
== END 2025-01-28 11:28 | disposition home or self-care (01) ==
LOC: HO.HMGCLDS 11:27
PROVIDERS: PCP Internal Medicine; Visit Provider Surgery
DX: N28.9 Disorder of kidney and ureter, unspecified (principal)
CPT/HCPCS: 36415; 80048